=== PATIENT | female | born 2000 | race Caucasian/White ===

== ENCOUNTER 2019-05-20 20:12 | Observation (INO) ==
[2019-05-20] MEDS ORDERED: ONDANSETRON INJ 2 MG/ML 2 ML VIAL IV STA (21:40)
[2019-05-20 21:52] LABS: Basophils # (auto) 0.07 K/uL (0-0.2); Basophils % (auto) 0.8 %; Eosinophils # (auto) 0.01 K/uL (0-0.5); Eosinophils % (auto) 0.1 %; Hematocrit (blood only) 44.3 % (37-47); Hemoglobin 15.5 g/dL (12.0-16.0); Immature Granulocytes # (auto) 0.03 K/uL (0.00-0.02); Immature Granulocytes % (auto) 0.4 %; Lymphocytes # (auto) 1.86 K/uL (1.2-3.4); Lymphocytes % (auto) 22.1 %; Mean Corpuscular Hemoglobin 29.8 pg (25-34); Mean Platelet Volume 10.8 fL (7.4-10.4); Monocytes # (auto) 0.52 K/uL (0.11-0.59); Monocytes % (auto) 6.2 %; Neutrophils # (auto) 5.91 K/uL (1.4-6.5); Neutrophils % (auto) 70.4 %; Platelet Count 306 K/uL (130-400); RDW Coefficient of Variation 12.6 % (11.5-14.5); Red Blood Count 5.21 M/uL (4.2-5.4)
[2019-05-20 22:13] LABS: Albumin Globulin Ratio 1.2 (0.9-2); Albumin Level 4.5 gm/dl (3.4-5.0); BUN Creatinine Ratio 12.7 (10-20); Bilirubin,Total 0.7 mg/dl (0.2-1); Calcium 9.5 mg/dl (8.5-10.1); Creatinine Clr Calc Pharmacy 65.1 ml/min; Est GFR (African American) 101.2; Est GFR (Non-African American) 87.3; Globulin 3.9 gm/dl (2.5-4.0); Potassium 3.3 mmol/L (3.5-5.1); Total Protein 8.4 gm/dl (6.4-8.2)
[2019-05-20] MEDS ORDERED: SODIUM CHLORIDE 0.9% 1000ML 1,000 ML IV ONE (22:13)
[2019-05-20] MEDS ORDERED: DiphenhydrAMINE HCL 50 MG/ML VIAL IV STA ×2 (22:13→23:54)
[2019-05-20] MEDS ORDERED: PROMETHAZINE 6.25 MG/50.25 ML BAG IV STA (22:13)
[2019-05-20] MEDS ORDERED: FAMOTIDINE 20MG/5ML IV PUSH IV STA (22:19)
[2019-05-20] MEDS ORDERED: KETOROLAC TROMETHAMINE 15 MG/ML VIAL IV ONE (22:19)
[2019-05-20] MEDS ORDERED: ACETAMINOPHEN 1,000 MG/100 ML VIAL IV STA (22:19)
[2019-05-20 22:29] LABS: Magnesium 2.2 mg/dl (1.8-2.4)
--- NOTE | 2019-05-20 22:43 | Emergency Department Note ---
Entered by Kelle Garvin acting as a scribe for Howard Cruz MD History of Present Illness General Chief complaint: GI Assessment Stated complaint: VOMITING,NAUSEA,ABD PAIN Time Seen by Provider: 05/20/19 22:12 Source: patient and friends History of Present Illness Onset (ago): hour(s) (several ) Location: abdomen Severity: similar to prior episodes Pain Consistency: + other (persistent ) Maximum Pain Intensity: 6 Quality: + other (nausea and vomiting ) Relieved By: not by medication Associated symptoms: + other (positive upper abdominal pain; negative diarrhea; negative urinary symptoms ) Treatments prior to arrival: other (zofran, benadryl, compazine, pepsid ) The patient is a 18 year old female who presents to the Emergency Room with complaints of persistent nausea and vomiting that began this morning, several hours prior to arrival. The patient reports upper abdominal pain during this time. She states that she has a history of cyclic vomiting syndrome and believes this was triggered by something she ate. The patient's friend states that she ate the same food as the patient and also got sick. The patient states that her last episode of cyclic vomiting was in November of last year, 6 months ago. The patient states that she tried taking Zofran, Benadryl, Pepcid, and Compazine, but states that these did not relieve her symptoms. She denies diarrhea, fever, and urinary symptoms. The patient denies a history of surgeries on her abdomen. Home Medications Home Medications Medication Instructions Recorded Confirmed Type No Known Home Medications 05/20/19 05/20/19 History Allergies Allergy/AdvReac Type Severity Reaction Status Date / Time No Known Allergies Allergy Verified 05/20/19 23:00 Past Med/Surg History Medical History Cyclic vomiting syndrome Social History Preferred Language: Dutch Feels Safe at Home: Yes Smoking Status: Never smoker Review of Systems See HPI for pertinent positives & negatives. and A total of 10 systems reviewed and were otherwise negative Physical Exam Vital Signs Vital Signs - 24 hr 05/20/19 20:37 05/20/19 21:46 05/20/19 21:47 Temperature 36.9 C Temperature Source Oral Pulse Rate 112 H 122 H Pulse Rate [Finger] 78 Pulse Rate from SpO2 Sensor 117 H Respiratory Rate 20 17 21 Respiratory Effort / Characteristics Non-Labored Spontaneous Respiratory Depth Normal Blood Pressure 115/66 127/83 Blood Pressure [Right Arm] 127/83 Blood Pressure Mean 82 93 Blood Pressure Mean [Right Arm] 97 Pulse Oximetry 98 100 99 Oxygen Delivery Method Room Air Room Air Room Air Sepsis Action Taken by Nursing No Action Required 05/20/19 21:58 05/20/19 22:00 05/20/19 22:10 Temperature Temperature Source Pulse Rate 88 83 76 Pulse Rate [Finger] Pulse Rate from SpO2 Sensor 91 H 81 80 Respiratory Rate 14 14 16 Respiratory Effort / Characteristics Respiratory Depth Blood Pressure 127/91 Blood Pressure [Right Arm] Blood Pressure Mean 98 Blood Pressure Mean [Right Arm] Pulse Oximetry 98 100 100 Oxygen Delivery Method Room Air Room Air Room Air Sepsis Action Taken by Nursing 05/20/19 22:20 05/20/19 22:59 05/20/19 23:00 Temperature Temperature Source Pulse Rate 85 76 80 Pulse Rate [Finger] 84 Pulse Rate from SpO2 Sensor 81 77 79 Respiratory Rate 16 19 16 Respiratory Effort / Characteristics Respiratory Depth Normal Blood Pressure 124/84 Blood Pressure [Right Arm] 124/84 Blood Pressure Mean 100 Blood Pressure Mean [Right Arm] 97 Pulse Oximetry 100 100 100 Oxygen Delivery Method Room Air Room Air Room Air Sepsis Action Taken by Nursing 05/20/19 23:01 Temperature Temperature Source Pulse Rate 87 Pulse Rate [Finger] Pulse Rate from SpO2 Sensor 90 Respiratory Rate 24 Respiratory Effort / Characteristics Respiratory Depth Blood Pressure Blood Pressure [Right Arm] Blood Pressure Mean Blood Pressure Mean [Right Arm] Pulse Oximetry 100 Oxygen Delivery Method Room Air Sepsis Action Taken by Nursing GENERAL: Patient is in mild distress from pain and nausea. HEENT: No acute trauma, normocephalic atraumatic, mucous membranes moist, no nasal congestion, no scleral icterus. NECK: No stridor, no adenopathy, no meningismus, trachea is midline. LUNGS: Clear to auscultation bilaterally, no wheeze, no rhonchi, breath sounds equal. HEART: Without murmurs gallops or rubs, regular rate and rhythm. ABDOMEN: Diffusely mildly tender. Soft, bowel sounds positive, no hernias, no peritonitis. EXTREMITIES: No cyanosis or edema, full range of motion of all the joints without pain or difficulty, no signs for acute trauma. NEUROLOGIC: Oriented x 3, no acute motor or sensory deficits, no focal weakness. SKIN: No rash, no jaundice, no diaphoresis. Course Course 2216: Past medical records reviewed. The patient was evaluated in room B11B. A complete history and physical exam was performed. I spoke to the patient about her laboratory findings and imaging results. 2359: Dr. Uribe-[facility] Hospitalist was made aware of the patient. Administered Medications Lactated Ringer's (Lr) 1,000 mls @ 999 mls/hr IV .Q1H1M STA Stop: 05/21/19 00:56 Last Admin: 05/21/19 00:01 Dose: 999 mls/hr Documented by: [id number] Discontinued Medications Diphenhydramine HCl (Benadryl) 12.5 mg IV NOW STA Stop: 05/20/19 22:14 Last Admin: 05/20/19 22:18 Dose: 12.5 mg Documented by: [id number] Diphenhydramine HCl (Benadryl) 12.5 mg IV NOW STA Stop: 05/20/19 23:55 Last Admin: 05/21/19 00:01 Dose: 12.5 mg Documented by: [id number] Famotidine (Pepcid 20mg Iv Push) 20 mg IV ONE STA Stop: 05/20/19 22:20 Last Admin: 05/20/19 22:48 Dose: 20 mg Documented by: [id number] Sodium Chloride (Nss 1000ml) 1,000 mls @ 999 mls/hr IV .Q1H1M ONE Stop: 05/20/19 23:13 Last Infusion: 05/20/19 22:55 Dose: 0 mls/hr Documented by: [id number] Admin: 05/20/19 21:45 Dose: 999 mls/hr Documented by: [id number] Promethazine HCl (Phenergan) 6.25 mg in 50.25 mls @ 201 mls/hr IV NOW STA Stop: 05/20/19 22:27 Last Infusion: 05/20/19 22:55 Dose: 0 mls/hr Documented by: [id number] Admin: 05/20/19 22:20 Dose: 201 mls/hr Documented by: [id number] Acetaminophen (Ofirmev) 1,000 mg in 100 mls @ 400 mls/hr IV NOW STA Stop: 03/02/20 22:33 Last Infusion: 05/20/19 23:13 Dose: 0 mls/hr Documented by: [id number] Admin: 05/20/19 22:48 Dose: 400 mls/hr Documented by: [id number] Prochlorperazine 5 mg/ Syringe 9 mls @ 5 mls/min IV ONE ONE Stop: 05/20/19 22:57 Last Admin: 05/20/19 23:12 Dose: 5 mls/min Documented by: [id number] Promethazine HCl 6.25 mg/ (Sodium Chloride) 50.25 mls @ 201 mls/hr IV NOW STA Stop: 05/20/19 23:10 Last Infusion: 05/20/19 23:39 Dose: 0 mls/hr Documented by: [id number] Admin: 05/20/19 23:11 Dose: 201 mls/hr Documented by: [id number] Ketorolac Tromethamine (Toradol) 10 mg IV NOW ONE Stop: 05/20/19 22:20 Last Admin: 05/20/19 22:47 Dose: 10 mg Documented by: [id number] Ondansetron HCl (Zofran) 4 mg IV NOW STA Stop: 05/20/19 21:41 Last Admin: 05/20/19 21:45 Dose: 4 mg Documented by: [id number] Prochlorperazine (Compazine) Confirm Administered Dose 10 mg .ROUTE .STK-MED ONE Stop: 05/20/19 23:07 Last Admin: 05/20/19 23:12 Dose: Not Given Documented by: [id number] Medical Decision Making Differential Diagnosis Differential diagnoses include dehydration, food borne illness, viral illness, bowel obstruction, , electrolyte imbalance, UTI, and others were considered. Medical Records Attestation: I reviewed the patient's medical records. Home Medications Current Medication List: was personally reviewed by me Laboratory Data Attestation: I reviewed the patient's lab results. Result diagrams: 05/20/19 21:37 05/20/19 21:37 Lab Results 05/20/19 05/20/19 05/20/19 Range/Units 21:37 21:37 21:37 WBC 8.40 (4.8-10.8) K/uL RBC 5.21 (4.2-5.4) M/uL Hgb 15.5 (12.0-16.0) g/dL Hct 44.3 (37-47) % MCV 85.0 (80-100) fL MCH 29.8 (25-34) pg MCHC 35.0 (32-36) g/dL RDW Std Deviation 39.0 (36.4-46.3) fL RDW Coeff of Kady 12.6 (11.5-14.5) % Plt Count 306 (130-400) K/uL MPV 10.8 H (7.4-10.4) fL Immature Gran % (Auto) 0.4 % Neut % (Auto) 70.4 % Lymph % (Auto) 22.1 % [place] % (Auto) 6.2 % Eos % (Auto) 0.1 % Baso % (Auto) 0.8 % Immature Gran # (Auto) 0.03 H (0.00-0.02) K/uL Neut # (Auto) 5.91 (1.4-6.5) K/uL Lymph # (Auto) 1.86 (1.2-3.4) K/uL [place] # (Auto) 0.52 (0.11-0.59) K/uL Eos # (Auto) 0.01 (0-0.5) K/uL Baso # (Auto) 0.07 (0-0.2) K/uL Sodium 138 (136-145) mmol/L Potassium 3.3 L D (3.5-5.1) mmol/L Chloride 106 (98-107) mmol/L Carbon Dioxide 22 (21-32) mmol/L Anion Gap 10.0 (3-11) BUN 12 (7-18) mg/dl Creatinine 0.94 (0.6-1.2) mg/dl Est Cr Clr Drug Dosing 65.1 ml/min Est GFR ( Amer) 101.2 Est GFR (Non-Af Amer) 87.3 BUN/Creatinine Ratio 12.7 (10-20) Glucose 97 (70-99) mg/dl Calcium 9.5 (8.5-10.1) mg/dl Magnesium 2.2 (1.8-2.4) mg/dl Total Bilirubin 0.7 (0.2-1) mg/dl AST 20 (15-37) U/L ALT 24 (12-78) U/L Alkaline Phosphatase 51 (45-117) U/L Total Protein 8.4 H (6.4-8.2) gm/dl Albumin 4.5 (3.4-5.0) gm/dl Globulin 3.9 (2.5-4.0) gm/dl Albumin/Globulin Ratio 1.2 (0.9-2) Lipase 84 (73-393) U/L HCG, Qual Negative (Negative) Urine Color Urine Appearance (Clear) Urine pH (4.5-7.5) Ur Specific Franklin (1.000-1.030) Urine Protein (Negative) Urine Glucose (UA) (Negative) Urine Ketones (Negative) Urine Blood (Negative) Urine Nitrite (Negative) Urine Bilirubin (Negative) Urine Urobilinogen (Negative) Ur Leukocyte Esterase (Negative) Urine WBC (Auto) (0-5) /hpf Urine RBC (Auto) (0-4) /hpf U Hyaline Cast (Auto) (0-5) /lpf U Epithel Cells (Auto) (0-5) /lpf Urine Bacteria (Auto) (Negative) Ur Renal Epithelial Cell Urine Mucus (None Prsent) 05/20/19 Range/Units 22:45 WBC (4.8-10.8) K/uL RBC (4.2-5.4) M/uL Hgb (12.0-16.0) g/dL Hct (37-47) % MCV (80-100) fL MCH (25-34) pg MCHC (32-36) g/dL RDW Std Deviation (36.4-46.3) fL RDW Coeff of Kady (11.5-14.5) % Plt Count (130-400) K/uL MPV (7.4-10.4) fL Immature Gran % (Auto) % Neut % (Auto) % Lymph % (Auto) % [place] % (Auto) % Eos % (Auto) % Baso % (Auto) % Immature Gran # (Auto) (0.00-0.02) K/uL Neut # (Auto) (1.4-6.5) K/uL Lymph # (Auto) (1.2-3.4) K/uL [place] # (Auto) (0.11-0.59) K/uL Eos # (Auto) (0-0.5) K/uL Baso # (Auto) (0-0.2) K/uL Sodium (136-145) mmol/L Potassium (3.5-5.1) mmol/L Chloride (98-107) mmol/L Carbon Dioxide (21-32) mmol/L Anion Gap (3-11) BUN (7-18) mg/dl Creatinine (0.6-1.2) mg/dl Est Cr Clr Drug Dosing ml/min Est GFR ( Amer) Est GFR (Non-Af Amer) BUN/Creatinine Ratio (10-20) Glucose (70-99) mg/dl Calcium (8.5-10.1) mg/dl Magnesium (1.8-2.4) mg/dl Total Bilirubin (0.2-1) mg/dl AST (15-37) U/L ALT (12-78) U/L Alkaline Phosphatase (45-117) U/L Total Protein (6.4-8.2) gm/dl Albumin (3.4-5.0) gm/dl Globulin (2.5-4.0) gm/dl Albumin/Globulin Ratio (0.9-2) Lipase (73-393) U/L HCG, Qual (Negative) Urine Color Dark Yellow Urine Appearance Clear (Clear) Urine pH 8.0 H (4.5-7.5) Ur Specific Franklin 1.029 (1.000-1.030) Urine Protein Negative (Negative) Urine Glucose (UA) Negative (Negative) Urine Ketones 4+ H (Negative) Urine Blood Negative (Negative) Urine Nitrite Negative (Negative) Urine Bilirubin Negative (Negative) Urine Urobilinogen Negative (Negative) Ur Leukocyte Esterase 1+ H (Negative) Urine WBC (Auto) 10-30 H (0-5) /hpf Urine RBC (Auto) 5-10 H (0-4) /hpf U Hyaline Cast (Auto) 0 (0-5) /lpf U Epithel Cells (Auto) >30 H (0-5) /lpf Urine Bacteria (Auto) 1+ H (Negative) Ur Renal Epithelial Cell Not Reportable Urine Mucus Present A (None Prsent) Imaging Data Radiologist's Impression: Radiology results as stated below per my review and the radiologist's interpretation: PA CHEST RADIOGRAPH AND UPRIGHT AND SUPINE AP RADIOGRAPHS OF THE ABDOMEN CLINICAL HISTORY: Nausea and vomiting. COMPARISON STUDY: No previous studies for comparison. FINDINGS: Lung volumes are normal. There is no pneumothorax or pleural effusion. Cardiac size is normal. Mediastinal contours are normal. There is no consolidation. There is no evidence for pulmonary edema. No free air is noted. The bowel gas pattern is normal. No urinary calculi are identified. Visualized skeletal structures are unremarkable. IMPRESSION: 1. No free air or evidence of bowel obstruction. 2. No acute cardiopulmonary findings. ACT 112: Negative or not required by law. Electronically signed by: Hoang Cali M.D. 05/20/2019 10:45 PM Blood Pressure Blood Pressure Findings: Elevated blood pressure Blood Pressure Disposition: Referred to patients primary care provider [facility] Narrative There is no leukocytosis or concerning anemia. No significant electrolyte abnormality or kidney failure. No concerning liver enzyme elevation. testing was negative. No evidence for pancreatitis by her testing. Urinalysis did show dehydration with 4+ ketones, no evidence for infection on the UA. Abdominal series did not show pneumonia, free air or bowel obstruction. On exam, the patient was not toxic or febrile. She did not have peritonitis. The patient received multiple medications for her nausea and vomiting. She was given IV saline, 1 L. She eventually was given a liter of lactated Ringer's. She was given IV Compazine, IV Benadryl, IV Zofran. She received IV Pepcid, IV Toradol, IV Tylenol. She was given an additional dose of IV Benadryl. She received a dose of IV Phenergan. A second dose of IV Phenergan was administered. The patient is still nauseated and still dry heaving. She is going to require hospitalization. She states that she had some bad food that made her friend sick as well. She has a history of cyclic vomiting syndrome and this food seems to have set off her cyclic vomiting. She this is her second visit today. The patient is aware of all her findings. I did speak with case management. The on-call hospitalist has been consulted. Impression & Plan Dehydration, Vomiting, Upper abdominal pain, Cyclic vomiting syndrome Discharge Plan Visit Data Chief Complaint: GI Assessment Stated Complaint: VOMITING,NAUSEA,ABD PAIN ED Provider: Howard Cruz Discharge Problem: Dehydration, Vomiting, Upper abdominal pain, Cyclic vomiting syndrome Patient Disposition: Being Evaluated by Hospitalist Forms Stand Alone Forms: My [employer] Prescriptions Prescriptions: No Action No Known Home Medications RF: 0 Referrals Referrals: [facility] [Primary Care Provider] - Discharge Problem: Vomiting Qualifiers: Vomiting type: unspecified Vomiting Intractability: intractable Nausea presence: with nausea Qualified Code(s): R11.2 - Nausea with vomiting, unspecified The scribe's documentation has been prepared under my direction and personally reviewed by me in its entirety. I confirm that the note above accurately reflects all work, treatment, procedures, and medical decision making performed by me.
--- NOTE | 2019-05-20 22:47 | XRay Report ---
PA CHEST RADIOGRAPH AND UPRIGHT AND SUPINE AP RADIOGRAPHS OF THE ABDOMEN CLINICAL HISTORY: Nausea and vomiting. COMPARISON STUDY: No previous studies for comparison. FINDINGS: Lung volumes are normal. There is no pneumothorax or pleural effusion. Cardiac size is nor mal. Mediastinal contours are normal. There is no consolidation. There is no evidence for pulmonary e karri. No free air is noted. The bowel gas pattern is normal. No urinary calculi are identified. Visua lized skeletal structures are unremarkable. IMPRESSION: 1. No free air or evidence of bowel obstruction. 2. No acute cardiopulmonary findings. ACT 112: Negative or not required by law. Electronically signed by: Hoang Cali M.D. 05/20/2019 10:45 PM
[2019-05-20] MEDS ORDERED: PROMETHAZINE HCL 6.25 MG in SODIUM CHLORIDE 0.9% 50 ML IV STA (22:56)
[2019-05-20] MEDS ORDERED: PROCHLORPERAZINE 5 MG in SYRINGE 8 ML IV ONE (22:56)
[2019-05-20] MEDS ORDERED: PROCHLORPERAZINE 5 MG/ML 2 ML VIAL ONE (23:06)
[2019-05-20 23:08] LABS: Pregnancy Test, Serum Negative (Negative)
[2019-05-20 23:21] LABS: Appearance Urine Clear (Clear); Bacteria Urine Automated 1+ (Negative); Bilirubin Urine Negative (Negative); Blood Urine Negative (Negative); Color Urine Dark Yellow; Epithelial Cell Urine Auto >30 /lpf (0-5); Glucose Urine UA Negative (Negative); Leukocyte Esterase Urine 1+ (Negative); Nitrite Urine Negative (Negative); Specific Gravity Urine 1.029 (1.000-1.030); Urobilinogen Urine Negative (Negative)
[2019-05-20 23:37] LABS: Ketones Urine 4+ (Negative); Protein Urine Negative (Negative); Sulfosalicylic Acid Urine Negative (Negative)
[2019-05-20 23:56] LABS: Cast Urine Automated 0 /lpf (0-5); Mucus Urine Present (None Prsent)
[2019-05-20] MEDS ORDERED: LACTATED RINGER'S 1,000 ML IV STA (23:56)
[2019-05-21] MEDS ORDERED: SUMAtriptan succinate 6 MG/0.5 ML VIAL SQ STA (03:07)
--- NOTE | 2019-05-21 03:09 | History & Physical Report ---
Date of Service May 21, 2019 Assessment & Plan (1) Cyclic vomiting syndrome: Patient is a 21-year-old female with a past medical history of cyclical vomiting syndrome who presents for evaluation nausea and vomiting in the setting of cyclic vomiting syndrome flare secondary to suspected food poisoning. #Cyclic vomiting syndrome Patient with a history of cyclic vomiting syndrome first diagnosed while she was in high school, with prior history of 1 week hospitalization to manage symptoms, Presents with what she believes to be a flare of her cyclic vomiting syndrome secondary to presumed foodborne illness experienced on Monday. See subjective she notes her girlfriends were also sick after consuming food. Since then has been unable to have any meaningful p.o. intake. Reports urine is dark consistent with dehydration, still having bouts of emesis despite aggressive therapy. Admit to MedSurg PRN Zofran As needed Phenergan PRN Compazine PRN diphenhydramine PRN Tylenol/ketorolac for fever/pain Per review of up-to-date there are 2 recommendations for abortive medications -Trial of sumatriptan 6 mg subcu -If this is not effective by morning trial of aprepitant 125 mg orally on day 1 and 80 mg on day 2 and 3 -On discharge consider use of amitriptyline 75 to 100 mg/day for prophylaxis -If this is not tolerated consider use of nortriptyline versus doxepin -If not can consider anticonvulsants Topamax 100 mg daily versus Keppra 1 g daily versus aprepitant 152 mg twice per week -Would also add coenzyme Q 10 200 mg twice daily, riboflavin 200 mg twice daily, l-carnitine 1.5 g twice daily as adjuncts -Full liquid diet advance as tolerated -If unable to maintain adequate p.o. intake to consider TPN #Electrolyte abnormalities Hypokalemic on admission -Daily BMP -Repleted potassium #Nausea and vomiting Secondary to the above, supportive care #Dehydration Patient status post 2 bags of fluid resuscitation, will continue fluids at 1.5 times maintenance IVF LR at 125 #Upper abdominal pain Patient reporting pain in her abdomen in the epigastric and left upper quadrant region. Lipase is negative, however there was some guarding on physical exam. Her laboratory results are not super impressive for underlying abdominal pathology. Upon review of up-to-date they recommend CT to rule out acute hydronephrosis or SBO. -Follow-up abdominal CT FENa: Full liquid advance as tolerated Code Status: Full code DVT PPX: Not indicated PT/OT: Not indicated [facility] PGY 2, FCM This chart was completed utilizing [employer] voice recognition software. Grammatical errors, random word insertions, pronoun errors, and in complete sentences are an occasional consequence of the system. Any questions or concerns about the content, text, or information contained within the body of this dictation should be addressed directly to the physician for clarification. (2) Nausea and vomiting: (3) Dehydration: (4) Vomiting: (5) Upper abdominal pain: History of Present Illness Patient is a 21-year-old female with a past medical history of cyclical vomiting syndrome who presents for evaluation nausea and vomiting in the setting of cyclic vomiting syndrome flare secondary to suspected food poisoning. She reports that she was first diagnosed with cyclic vomiting syndrome while in high school, is a senior in high school she was hospitalized for a week in efforts to get over a flare of her CVS. She reports being sexually active however She reportsthere is no chance of , this confirmed by labs. Patient denies using drugs specifically denies marijuana specifically denies warm showers improving her symptoms. 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 Patient was in her usual state of health until this Monday when she and her girlfriends went to [employer] and consumed a Zoey ham egg and cheese. She reports that she and her girlfriend all became sick from this throwing up approximately 4 times throughout the day on Monday. Her friends symptoms resolved the day however hers persisted causing her to present to the emergency department on Monday with nausea and vomiting she was given Zofran Benadryl and caspacin and discharged. Patient symptoms have continued resulting in her presentation today. She reports she has not been able to keep anything down besides a plain bagel which she consumed on Monday, notes her urine to be very yellow as she feels significantly dehydrated, reports her last bowel movement was this past Monday. Today she prior to coming to the emergency department she took Zofran, Benadryl, and caspacin with no improvement in her symptoms. She takes cyproheptadine on a daily basis as a prophylaxis against her CVS. Upon presentation the emergency department routine labs were obtained notable for negative urine test, white count of 8.4, hemoglobin 15.5, platelet 306, sodium 138, potassium 3.3, creatinine 0.94, glucose 97, lipase of 84, urine ketones of 4+, urine leukocyte 1+, 10-30 white, greater than 30 epithelial cells, 1+ bacteria. Throughout her time in the emergency department the patient experienced intractable nausea and vomiting despite receiving IV acetaminophen, IV 25 mg of diphenhydramine, IV famotidine, IV Toradol, 2 liters of fluid, 4 mg Zofran, 15 mg prochlorperazine, and 12.5 mg promethazine. XR of the abdomen and pelvis was obtained demonstrating no evidence of free air or bowel obstruction, no acute cardiopulmonary findings. Despite her aggressive medication regimen, the patient did not improve so the hospital service was consulted for admission. On evaluation the patient she confirmed the history described above, and experienced 2 bouts of emesis during the interview. She described her symptoms as the following: During episodes of CVS she will experience "an icky feeling in her stomach" which causes her to feel nauseous, the nausea becomes progressively worse to the point where she has bouts of emesis. Additionally she noted epigastric and left upper quadrant pain, she states that she frequently gets similar symptoms when she has CVS episodes. Patient specifically denied fevers, chills, urinary symptoms, motor symptoms, sensory symptoms, pain in her bones muscles or joints. Patient will be admitted for further evaluation management of her CVS symptoms. Primary Care Provider: [facility] Allergies Allergy/AdvReac Type Severity Reaction Status Date / Time No Known Allergies Allergy Verified 05/20/19 23:00 Home Medications Home Medications Medication Instructions Recorded Confirmed Type aprepitant [Emend] 80 mg PO QAM #1 cap 05/22/19 Rx cyproheptadine 4 mg PO HS #30 tab 05/22/19 Rx Past Med/Surg History Medical History Cyclic vomiting syndrome Social History Preferred Language: Niuean Communication Ability: Effective Fluid Dynamicist Required: No Beliefs That Will Affect Care: None Current Living Situation: Other Current Living Situation Comment: roomates/parents Feels Safe at Home: Yes Smoking Status: Never smoker Hx Alcohol Use: No Hx Substance Use: No Review of Systems Review of Systems: All systems reviewed & are unremarkable except as noted in HPI & below Physical Exam Physical Exam: General: Young adult female lying in bed vomiting HEENT: Normocephalic atraumatic Neck: Normal to visual inspection, trachea midline, negative JVD Cardiac: Regular rate and rhythm, I did not appreciate any significant murmurs rubs or gallops, normal S1, normal S2, negative calf tenderness, negative pedal edema Respiratory: Clear to auscultation bilaterally with symmetrical chest expansion, no increased work of breathing GI: Soft, tender to palpation in the epigastric and left upper quadrant, bowel sounds present, no rebound, positive guarding MSK: Moves all extremities Skin: No acute findings Neuro: Alert and oriented x4 Psych: Calm and cooperative Results & Data Vital Signs (Past 12 Hours) Vital Signs Temp Pulse Pulse Resp BP BP Pulse Ox 05/21/19 01:01 72 15 100 05/21/19 01:00 80 16 117/64 100 05/21/19 00:30 89 15 94/65 L 99 05/21/19 00:01 68 20 98 05/21/19 00:00 67 16 115/80 100 05/20/19 23:30 76 15 117/74 99 05/20/19 23:01 87 24 100 05/20/19 23:00 80 84 16 124/84 124/84 100 05/20/19 22:59 76 19 100 05/20/19 22:20 85 16 100 05/20/19 22:10 76 16 100 05/20/19 22:00 83 14 127/91 100 05/20/19 21:58 88 14 98 05/20/19 21:47 122 H 21 127/83 99 05/20/19 21:46 78 17 127/83 100 05/20/19 20:37 36.9 C 112 H 20 115/66 98 Laboratory Results 05/20/19 05/20/19 05/20/19 Range/Units 22:45 21:37 21:37 WBC (4.8-10.8) K/uL RBC (4.2-5.4) M/uL Hgb (12.0-16.0) g/dL Hct (37-47) % MCV (80-100) fL MCH (25-34) pg MCHC (32-36) g/dL RDW Std Deviation (36.4-46.3) fL RDW Coeff of Kady (11.5-14.5) % Plt Count (130-400) K/uL MPV (7.4-10.4) fL Immature Gran % (Auto) % Neut % (Auto) % Lymph % (Auto) % Day % (Auto) % Eos % (Auto) % Baso % (Auto) % Immature Gran # (Auto) (0.00-0.02) K/uL Neut # (Auto) (1.4-6.5) K/uL Lymph # (Auto) (1.2-3.4) K/uL Day # (Auto) (0.11-0.59) K/uL Eos # (Auto) (0-0.5) K/uL Baso # (Auto) (0-0.2) K/uL Sodium 138 (136-145) mmol/L Potassium 3.3 L D (3.5-5.1) mmol/L Chloride 106 (98-107) mmol/L Carbon Dioxide 22 (21-32) mmol/L Anion Gap 10.0 (3-11) BUN 12 (7-18) mg/dl Creatinine 0.94 (0.6-1.2) mg/dl Est Cr Clr Drug Dosing 65.1 ml/min Est GFR ( Amer) 101.2 Est GFR (Non-Af Amer) 87.3 BUN/Creatinine Ratio 12.7 (10-20) Glucose 97 (70-99) mg/dl Calcium 9.5 (8.5-10.1) mg/dl Magnesium 2.2 (1.8-2.4) mg/dl Total Bilirubin 0.7 (0.2-1) mg/dl AST 20 (15-37) U/L ALT 24 (12-78) U/L Alkaline Phosphatase 51 (45-117) U/L Total Protein 8.4 H (6.4-8.2) gm/dl Albumin 4.5 (3.4-5.0) gm/dl Globulin 3.9 (2.5-4.0) gm/dl Albumin/Globulin Ratio 1.2 (0.9-2) Lipase 84 (73-393) U/L HCG, Qual Negative (Negative) Urine Color Dark Yellow Urine Appearance Clear (Clear) Urine pH 8.0 H (4.5-7.5) Ur Specific [place] 1.029 (1.000-1.030) Urine Protein Negative (Negative) Urine Glucose (UA) Negative (Negative) Urine Ketones 4+ H (Negative) Urine Blood Negative (Negative) Urine Nitrite Negative (Negative) Urine Bilirubin Negative (Negative) Urine Urobilinogen Negative (Negative) Ur Leukocyte Esterase 1+ H (Negative) Urine WBC (Auto) 10-30 H (0-5) /hpf Urine RBC (Auto) 5-10 H (0-4) /hpf U Hyaline Cast (Auto) 0 (0-5) /lpf U Epithel Cells (Auto) >30 H (0-5) /lpf Urine Bacteria (Auto) 1+ H (Negative) Ur Renal Epithelial Cell Not Reportable Urine Mucus Present A (None Prsent) 05/20/19 Range/Units 21:37 WBC 8.40 (4.8-10.8) K/uL RBC 5.21 (4.2-5.4) M/uL Hgb 15.5 (12.0-16.0) g/dL Hct 44.3 (37-47) % MCV 85.0 (80-100) fL MCH 29.8 (25-34) pg MCHC 35.0 (32-36) g/dL RDW Std Deviation 39.0 (36.4-46.3) fL RDW Coeff of Kady 12.6 (11.5-14.5) % Plt Count 306 (130-400) K/uL MPV 10.8 H (7.4-10.4) fL Immature Gran % (Auto) 0.4 % Neut % (Auto) 70.4 % Lymph % (Auto) 22.1 % Day % (Auto) 6.2 % Eos % (Auto) 0.1 % Baso % (Auto) 0.8 % Immature Gran # (Auto) 0.03 H (0.00-0.02) K/uL Neut # (Auto) 5.91 (1.4-6.5) K/uL Lymph # (Auto) 1.86 (1.2-3.4) K/uL Day # (Auto) 0.52 (0.11-0.59) K/uL Eos # (Auto) 0.01 (0-0.5) K/uL Baso # (Auto) 0.07 (0-0.2) K/uL Sodium (136-145) mmol/L Potassium (3.5-5.1) mmol/L Chloride (98-107) mmol/L Carbon Dioxide (21-32) mmol/L Anion Gap (3-11) BUN (7-18) mg/dl Creatinine (0.6-1.2) mg/dl Est Cr Clr Drug Dosing ml/min Est GFR ( Amer) Est GFR (Non-Af Amer) BUN/Creatinine Ratio (10-20) Glucose (70-99) mg/dl Calcium (8.5-10.1) mg/dl Magnesium (1.8-2.4) mg/dl Total Bilirubin (0.2-1) mg/dl AST (15-37) U/L ALT (12-78) U/L Alkaline Phosphatase (45-117) U/L Total Protein (6.4-8.2) gm/dl Albumin (3.4-5.0) gm/dl Globulin (2.5-4.0) gm/dl Albumin/Globulin Ratio (0.9-2) Lipase (73-393) U/L HCG, Qual (Negative) Urine Color Urine Appearance (Clear) Urine pH (4.5-7.5) Ur Specific [place] (1.000-1.030) Urine Protein (Negative) Urine Glucose (UA) (Negative) Urine Ketones (Negative) Urine Blood (Negative) Urine Nitrite (Negative) Urine Bilirubin (Negative) Urine Urobilinogen (Negative) Ur Leukocyte Esterase (Negative) Urine WBC (Auto) (0-5) /hpf Urine RBC (Auto) (0-4) /hpf U Hyaline Cast (Auto) (0-5) /lpf U Epithel Cells (Auto) (0-5) /lpf Urine Bacteria (Auto) (Negative) Ur Renal Epithelial Cell Urine Mucus (None Prsent) Code Status & VTE Plan Code Status Full code VTE Prophylaxis Plan VTE Prophylaxis will be ordered: No Supervising Physician Co-Signing Physician Notes Attending addendum: I have physically seen this patient, have supervised the medical residents activities, and agree with the H&P unless as otherwise noted. Assessment and Plan: Cyclic vomiting syndrome-previous diagnosis- Admission to [facility]. Medications as noted, however no improvement while in the ED. Check urine drug screen. Replete potassium orally and IV, then follow serial laboratories. Remainder of orders and notations as noted. Resident Activity Tracking Resident Involvement: Resident Care Provided Care Provided: Adult Hospital Medicine (1) Nausea and vomiting Vomiting Intractability: non-intractable Vomiting type: unspecified Qualified Code(s): R11.2 - Nausea with vomiting, unspecified (2) Vomiting Nausea presence: with nausea Vomiting Intractability: intractable Vomiting type: unspecified Qualified Code(s): R11.2 - Nausea with vomiting, unspecified
[2019-05-21] MEDS ORDERED: IOVERSOL 100ml IV PRN (04:11)
[2019-05-21] MEDS ORDERED: KETOROLAC TROMETHAMINE 15 MG/ML VIAL IV PRN (04:18)
[2019-05-21] MEDS ORDERED: PROMETHAZINE HCL 6.25 MG in SODIUM CHLORIDE 0.9% 50 ML IV PRN (04:18)
[2019-05-21] MEDS ORDERED: PROCHLORPERAZINE 5 MG in SYRINGE 4 ML IV PRN (04:18)
[2019-05-21] MEDS ORDERED: ondansetron HCL 6 MG in DEXTROSE 5% 50 ML IV PRN (04:18)
[2019-05-21] MEDS ORDERED: ALUMINUM/MAGNESIUM SUSP 30 ML UDC PO PRN (04:18)
[2019-05-21] MEDS ORDERED: ACETAMINOPHEN 1,000 MG/100 ML VIAL IV PRN (04:18)
[2019-05-21] MEDS ORDERED: DiphenhydrAMINE HCL 50 MG/ML VIAL IV PRN (04:18)
[2019-05-21] MEDS: LACTATED RINGER'S 1,000 ML IV SCH ×3 (04:26→19:36)
[2019-05-21] MEDS: POTASSIUM CHLORIDE / WTR 10 MEQ/100 ML PLCT IV SCH ×3 (04:33→06:48)
[2019-05-21] MEDS ORDERED: ACETAMINOPHEN 70 ML IV PRN (05:00)
[2019-05-21 07:21] LABS: Basophils # (auto) 0.04 K/uL (0-0.2); Basophils % (auto) 0.5 %; Eosinophils # (auto) 0.01 K/uL (0-0.5); Eosinophils % (auto) 0.1 %; Hematocrit (blood only) 37.5 % (37-47); Hemoglobin 12.8 g/dL (12.0-16.0); Immature Granulocytes # (auto) 0.02 K/uL (0.00-0.02); Immature Granulocytes % (auto) 0.2 %; Lymphocytes # (auto) 2.16 K/uL (1.2-3.4); Lymphocytes % (auto) 24.9 %; Mean Corpuscular Hemoglobin 29.2 pg (25-34); Mean Corpuscular Hgb Conc 34.1 g/dL (32-36); Mean Corpuscular Volume 85.4 fL (80-100); Mean Platelet Volume 10.4 fL (7.4-10.4); Monocytes # (auto) 0.83 K/uL (0.11-0.59); Monocytes % (auto) 9.6 %; Neutrophils # (auto) 5.61 K/uL (1.4-6.5); Neutrophils % (auto) 64.7 %; Platelet Count 229 K/uL (130-400); RDW Coefficient of Variation 12.4 % (11.5-14.5); RDW Standard Deviation 38.4 fL (36.4-46.3); Red Blood Count 4.39 M/uL (4.2-5.4); White Blood Count 8.67 K/uL (4.8-10.8)
--- NOTE | 2019-05-21 07:42 | CT Scan Report ---
CT SCAN OF THE ABDOMEN AND PELVIS WITH IV CONTRAST CLINICAL HISTORY: Left upper quadrant and epigastric abdominal pain. COMPARISON STUDY: Abdominal radiographs dated 05/20/2019. TECHNIQUE: Following the IV administration of 94 cc of Optiray 320, CT scan of the abdomen and pelvi s is performed from the lung bases to the proximal femora. Images are reviewed in the axial, sagittal , and coronal planes. IV contrast was administered without complication. A dose lowering technique wa s utilized adhering to the principles of ALARA. CT DOSE: 251.42 mGy.cm FINDINGS: Lung bases: The heart is normal in size and without pericardial effusion. The lung bases are clear. Liver: The contrast-enhanced liver is normal in size, contour, and attenuation. There is no intrahepa tic biliary ductal dilatation. The hepatic veins and portal veins are patent. Gallbladder: Unremarkable. Spleen: Normal in size and attenuation. Pancreas: Unremarkable. Adrenal glands: Unremarkable. Kidneys: The contrast enhanced kidneys are normal in size and without hydronephrosis. The kidneys enh ance symmetrically. Abdominal vasculature: The abdominal aorta is normal in course and caliber. Bowel: The small bowel and colon are normal in course and caliber. The appendix is well-visualized a nd normal. Peritoneum: There is no intraperitoneal free air or abdominal ascites. There is a small fat-containin g umbilical hernia. Lymphadenopathy: None. Pelvic viscera: The bladder, uterus, and adnexa are normal as imaged. There is trace free fluid in th e cul-de-sac. Skeletal structures: No lytic or blastic lesions are seen. IMPRESSION: 1. There are no acute infectious or inflammatory findings in the abdomen or pelvis. 2. Trace nonspecific free fluid in the cul-de-sac is likely within physiologic limits. ACT 112: Negative or not required by law. Electronically signed by: Howard Davey M.D. 05/21/2019 7:41 AM
[2019-05-21 07:48] LABS: Blood Urea Nitrogen 6 mg/dl (7-18); Calcium 8.1 mg/dl (8.5-10.1); Carbon Dioxide 22 mmol/L (21-32); Chloride 109 mmol/L (98-107); Est GFR (African American) > 150.0; Est GFR (Non-African American) 131.2; Glucose 99 mg/dl (70-99); Potassium 4.2 mmol/L (3.5-5.1); Sodium 137 mmol/L (136-145)
[2019-05-21] MEDS: POLYETHYLENE (MIRALAX) 17 GM PACK PO SCH (10:56)
[2019-05-21] MEDS: FAMOTIDINE 20 MG in SYRINGE 3 ML IV SCH ×2 (11:41→21:04)
[2019-05-21] MEDS ORDERED: SUMAtriptan succinate 6 MG/0.5 ML VIAL SQ ONE (13:08)
--- NOTE | 2019-05-21 13:17 | Hospitalist Progress Note ---
Date of Service May 21, 2019 Assessment & Plan (1) Cyclic vomiting syndrome: Patient with a history of cyclic vomiting syndrome first diagnosed while she was in high school, with prior history of 1 week hospitalization to manage symptoms, Presents with what she believes to be a flare of her cyclic vomiting syndrome secondary to presumed foodborne illness experienced on Monday. continue prn antiemetics and pain control - responded well to sumatriptan 6 mg sq but continues to be nauseas and painful so will repeat dose, will consider trial of aprepitant if she does not continue to improve -On discharge consider use of amitriptyline 75 to 100 mg/day for prophylaxis - consider anticonvulsants Topamax 100 mg daily versus Keppra 1 g daily versus aprepitant 152 mg twice per week -could add coenzyme Q 10 200 mg twice daily, riboflavin 200 mg twice daily, l-carnitine 1.5 g twice daily as adjuncts - continue home ciproheptadine at night -Full liquid diet advance as tolerated (2) Dehydration: Continue IVF (3) Upper abdominal pain: Lipase is negative CT a/p negative for acute Admission and Anticipated Discharge Date Admission Date: May 21, 2019 Subjective Ms. Adams has not been vomiting today but is still quite nauseas with abdominal pain. Her mother says she appears much more calm and comfortable than when she came in. ROS Constitutional: no chills, aches, sweats or fever Respiratory: no sob,cough, sputum, or wheezing Cardiac: no chest pain, palpitations, edema, orthopnea or lightheadedness GI: no abdominal pain, nausea, vomiting, diarrhea or constipation : no dysuria or hesitancy Extremities: no joint pain or weakness Skin: no rash All other systems reviewed and negative Physical Exam Physical Exam: General: no distress Eyes: normal inspection, PERLL Respiratory: chest non tender, clear to auscultation, normal breath sounds, no respiratory distress, no accessory muscle use Cardiac: regular rate and rhythm, no rub or gallop, no murmur, no edema, no jvd GI/: active bowel sounds, tender abdomen, soft, non distended Extremities: normal range of motion, normal strength, non tender Neuro/Psych: alert and oriented x 3, normal mood and affect Skin: normal color, dry Results & Data ([facility]) Vital Signs (Past 12 Hours) Vital Signs Temp Pulse Pulse Resp BP BP Pulse Ox 05/21/19 11:42 115/67 05/21/19 08:11 37.0 C 84 18 143/90 H 100 05/21/19 04:18 37.2 C 69 16 112/71 96 05/21/19 03:52 77 18 119/83 100 05/21/19 03:30 77 15 119/83 100 05/21/19 03:01 71 21 95 05/21/19 03:00 76 18 123/78 96 05/21/19 02:30 97 H 20 110/85 100 05/21/19 02:01 95 H 18 97 05/21/19 02:00 87 21 110/69 98 05/21/19 01:30 76 18 97/49 L 96 PG Care Time/CCT Total # of Minutes Spent Total Time Spent with Patient: Total time spent is greater than 50% in coordination of care (as documented) at patient's floor/unit and/or counseling patient: Coding Level of Care Code 13551 Subseq Hosp Care Lvl 2 Diagnoses Cyclic vomiting syndrome R11.15 Dehydration E86.0 Upper abdominal pain R10.10
[2019-05-21 15:45] VITALS: O2SAT 98
[2019-05-21] MEDS ORDERED: APREPITANT 125 MG CAP PO STA (17:13)
[2019-05-21] MEDS ORDERED: CYPROHEPTADINE HCL 4 MG TAB PO SCH (21:00)
[2019-05-22] MEDS: LACTATED RINGER'S 1,000 ML IV SCH ×2 (03:27→13:00)
[2019-05-22 07:45] VITALS: BP 102/62; PULSE 64; TEMP 97.9
[2019-05-22 08:21] LABS: BUN Creatinine Ratio 14.1 (10-20); Calcium 8.3 mg/dl (8.5-10.1); Creatinine Clr Calc Pharmacy 97.1 ml/min; Est GFR (African American) 149.7; Est GFR (Non-African American) 129.1; Potassium 3.8 mmol/L (3.5-5.1)
[2019-05-22] MEDS: POLYETHYLENE (MIRALAX) 17 GM PACK PO SCH (08:49)
[2019-05-22] MEDS: FAMOTIDINE 20 MG in SYRINGE 3 ML IV SCH (08:55)
[2019-05-22] MEDS ORDERED: APREPITANT 80 MG CAP PO SCH ×2 (09:00→12:00)
--- NOTE | 2019-05-22 09:53 | Discharge Summary ---
Date of Service May 22, 2019 Principal Diagnosis Cyclic vomiting syndrome Discharge Exam Constitutional WD/WN, vitals as above Respiratory normal respiratory effort, lungs clear to auscultation Cardiovascular RRR, no murmur, no edema Gastrointestinal (Abdomen) Inspection/Auscultation: abdomen normal to inspection and normal bowel sounds; abdomen not distended Percussion/Palpation: abdomen soft; abdomen nontender and no guarding Musculoskeletal no cyanosis or clubbing, extremities motor strength 5/5 Skin no rashes, warm and dry Neurologic moves all extremities and awake Psychiatric A+Ox3, euthymic affect Discharge Data Allergies Allergy/AdvReac Type Severity Reaction Status Date / Time No Known Allergies Allergy Verified 05/20/19 23:00 Consultations 05/20/19 23:55 ED Decision to Admit Stat Ordered Studies 05/21/19 03:03 CT abd pelvis IV con only Urgent Hospital Course (1) Cyclic vomiting syndrome: Patient with a history of cyclic vomiting syndrome first diagnosed while she was in high school, with prior history of 1 week hospitalization to manage symptoms, Presents with what she believes to be a flare of her cyclic vomiting syndrome secondary to presumed foodborne illness experienced on Monday. has not needed prn antiemetics or pain control since yesterday, no further abdominal pain or n/v - responded to sumatriptan 6 mg sq but continues to be nauseas and painful so will repeat dose, will consider trial of aprepitant if she does not continue to improve -Will have patient discuss use of amitriptyline 75 to 100 mg/day for prophylaxis with her primary care or GI doctor but will hold off on changing her preventive regimen for now -suggest adding coenzyme Q 10 200 mg twice daily, riboflavin 200 mg twice daily, l-carnitine 1.5 g twice daily as adjuncts - continue home ciproheptadine at night -Full liquid diet advance as tolerated (2) Dehydration: Provided IVF (3) Upper abdominal pain: Lipase is negative CT a/p negative for acute Resolved Total Time Total Time Spent Total Time Spent (In Minutes): greater than 30 minutes Discharge Plan Discharge Items Patient Disposition: Home - Self-Care Reason For Visit: CYCLIC VOMITING SYNDROME Discharge Diagnosis: Cyclic vomiting syndrome Activity: Resume your previous activity Non-emergency contact: Primary Care Provider Call non-emergency contact if: you have any medication questions and your symptoms worsen Follow-up/Referrals: [facility] [Primary Care Provider] - 05/24/19 9:40 am (If you need to change appointment please call [phone] to reschedule.) Diet: Regular Diet Comment: advance your diet slowly as you can tolerate, drink plenty of fluids Addtl Attending Provider Instructions: While you were here you received 2 doses of sumatriptan which was somewhat effective but did not completely abort the vomiting cycle. You were then given aprepitant (Emend) which is given for 3 days to help stop the cycle. You will take one more dose of this medication tomorrow morning. You can continue your home dosing of cyproheptadine. You can also add the following supplements to your regimen as they may help prevent relapses: coenzyme Q 10 200 mg twice daily, riboflavin 200 mg twice daily, l-carnitine 1.5 g twice daily. Please follow up with your primary care provider within about a week. You should discuss with them if you should change or add to your preventive medicine regimen with a tricyclic antidepressant like amitriptyline. Pending Studies at Discharge: No Stand-Alone Forms: [facility], Work/School Release (Inpt), Smoking Cessation Medications and DC Order Prescriptions: New cyproheptadine 4 mg Tablet 4 mg PO HS Qty: 30 RF: 0 aprepitant [Emend] 80 mg Capsule 80 mg PO QAM Qty: 1 RF: 0 Discharge Orders: Discharge Order (Routine); Ordered 05/22/19 Ordered By: Anjali Barnhart/Other Patient Handouts: Aprepitant capsules Admission Data Admit Date/Time: 05/21/19 03:13 Attending Provider: Jaguar Rodríguez Admit Provider: Chato Noe I. Primary Care Provider: [facility] Other Providers: Jaguar Rodríguez Other Interventions: Discharge Summary Assessment (RN) Last Done: 05/22/19 11:42 DC Date/Time DO NOT enter until pt leaves facility: 05/22/19 14:21 Supervising Physician Co-Signing Physician Notes I supervised Anjali Ferrell NP on this patient's care. I examined the patient today independently of her. I discussed the plan of care with her with the plan being as written in her note except for any following changes/exceptions: None. Slowly feeling better, but she reports it can take weeks. She will see her GI doctor on Monday. Coding Level of Care Code D/C Day Management >30 mins Diagnoses Cyclic vomiting syndrome R11.15 Dehydration E86.0 Upper abdominal pain R10.10
[2019-05-23] MEDS ORDERED: APREPITANT 80 MG CAP PO SCH (09:00)
--- NOTE | 2019-05-24 02:56 | Billing Data ---
Date of Service May 24, 2019 Coding Level of Care Code 74208 OBS Care - Level 3
== END 2019-05-22 14:21 | disposition home or self-care (01) ==
LOC: ED 20:12 → 3N 20:12 → SUATTDRO 05-21 03:13 → 3N 05-21 03:52

== ENCOUNTER 2019-11-12 12:00 | Observation (INO) ==
[2019-11-12] MEDS ORDERED: ONDANSETRON INJ 2 MG/ML 2 ML VIAL IV STA ×2 (12:19→13:46)
[2019-11-12] MEDS ORDERED: SODIUM CHLORIDE 0.9% 1000ML 1,000 ML IV ONE (12:19)
[2019-11-12] MEDS ORDERED: KETOROLAC TROMETHAMINE 15 MG/ML VIAL IV STA (12:19)
[2019-11-12] MEDS ORDERED: DiphenhydrAMINE HCL 50 MG/ML VIAL IV STA (12:19)
[2019-11-12] MEDS ORDERED: PROMETHAZINE 6.25 MG/50.25 ML BAG IV STA (12:19)
--- NOTE | 2019-11-12 12:25 | Emergency Department Note ---
Impression & Plan Dehydration, Cyclic vomiting syndrome, Vomiting and diarrhea ED Provider Note NAME: BISI FLETCHER AGE: 19 SEX: F : 2000 ARRIVES VIA: Walk-In INFORMANT: [Patient] ED PROVIDER(S): [Howard Cruz MD] CHIEF COMPLAINT: Vomiting HISTORY OF PRESENT ILLNESS: The patient is a 19-year-old female who presents to the ED with complaints of vomiting. The patient started school yesterday here at [facility] [facility]. She had some nervousness and jitteriness because of the start of school. She felt somewhat anxious yesterday and had some stomach cramping. This morning, she be judd vomiting. She also has diarrhea. The patient has a history of cyclic vomiting syndrome. She tried sumatriptan, Zofran, Benadryl and clonazepam without any relief. She presents to the ED. She has a note from her doctor's office telling her to come to the ED if the above medications fail. There has been no fever, she does have upper crampy abdominal pain that is moderate in severity. She has not had cough, cold or congestion. No shortness of breath. No urinary complaints. REVIEW OF SYSTEMS: See HPI for pertinent positives and negatives. A total of ten systems were reviewed and were otherwise negative. PMHx/PSHx: See Below SOCIAL HISTORY: See Below. PHYSICAL EXAM: GENERAL: Patient is in no acute distress. HEENT: No acute trauma, normocephalic atraumatic, mucous membranes moist, no nasal congestion, no scleral icterus. NECK: No stridor, no adenopathy, no meningismus, trachea is midline. LUNGS: Clear to auscultation bilaterally, no wheeze, no rhonchi, breath sounds equal. HEART: Without murmurs gallops or rubs, regular rate and rhythm. ABDOMEN: Soft, moderately tender in the epigastrium, bowel sounds positive, no hernias, no peritonitis. EXTREMITIES: No cyanosis or edema, full range of motion of all the joints without pain or difficulty, no signs for acute trauma. NEUROLOGIC: Oriented x 3, no acute motor or sensory deficits, no focal weakness. SKIN: No rash, no jaundice, no diaphoresis. DIFFERENTIAL DIAGNOSIS: Infection, dehydration, metabolic abnormality, hypo/hyperglycemia, cyclic vomiting syndrome, anxiety, electrolyte disturbance, anemia, hypoxia, cardiac sources, intracerebral event, toxicologic, neurologic, as well as other pathologies. EMERGENCY DEPARTMENT COURSE/PROCEDURES: Continuous Cardiac Monitoring: An order was placed for continuous cardiac monitoring. The monitor shows a rate of 78 with normal sinus rhythm. MEDICAL DECISION MAKING: There is no leukocytosis or concerning anemia. There is a normal platelet count. No renal failure or significant electrolyte abnormality. No concerning liver enzyme elevation. No evidence for pancreatitis. testing was negative. Urinalysis showed 4+ ketones consistent with dehydration, no evidence for urinary infection. On my exam, the patient did not appear toxic, she was not febrile. She had some mild discomfort with palpation of the upper abdomen, no peritonitis. The patient received a liter of IV saline and 1 L of IV lactated Ringer's. She was given IV Benadryl, IV Toradol, IV Zofran and IV Phenergan. She felt better but still somewhat nauseated. She was given IV Zofran and a dose of IV Ativan. Despite the above medications, the patient was continuing to vomit. She was given additional IV Phenergan. Patient has a history of cyclic vomiting syndrome and presents with a flareup of this disease. She has been hydrated, she has been medicated. Despite all attem pts, she is still vomiting. Hospitalization is warranted. She has been hospitalized for this issue before. I spoke to case management, the on-call hospitalist was consulted. The patient is aware of all her findings and the need for admission. Past Med/Surg History Medical History Cyclic vomiting syndrome Social History Smoking Status: Never smoker Hx Alcohol Use: No Hx Substance Use: No Preferred Language: Greek Communication Ability: Effective Fire Prevention Captain Required: No Beliefs That Will Affect Care: None Current Living Situation: Other Current Living Situation Comment: roomates/parents Feels Safe at Home: Yes Allergies Allergies Allergy/AdvReac Type Severity Reaction Status Date / Time No Known Allergies Allergy Verified 11/12/19 13:29 Home Meds Home Medications Medication Instructions Recorded Confirmed clonazepam 0.5 mg PO BID PRN 11/12/19 11/12/19 diphenhydramine HCl 50 mg PO Q6H PRN 11/12/19 11/12/19 norethindrone-e.estradiol-iron 1 tab PO DAILY 11/12/19 11/12/19 [Blisovi 24 Fe] ondansetron 4 mg PO UD PRN 11/12/19 11/12/19 prochlorperazine maleate 0 mg PO Q6 PRN 11/12/19 11/12/19 sumatriptan succinate 6 mg SUBCUT BID PRN 11/12/19 11/12/19 Previous Rx's Medication Instructions Recorded cyproheptadine 4 mg PO HS #30 tab 05/22/19 Results & Data (ED) Vital Signs Vital Signs - 24 hr 11/12/19 12:08 11/12/19 13:05 11/12/19 14:07 Temperature 36.8 C Temperature Source Oral Pulse Rate 94 H Pulse Rate [Right] 81 78 Respiratory Rate 20 16 16 Respiratory Effort / Characteristics Non-Labored Non-Labored Spontaneous Non-Labored Spontaneous Respiratory Depth Normal Normal Normal Blood Pressure 118/82 Blood Pressure [Left Arm] 127/86 116/69 Blood Pressure Mean 94 Blood Pressure Mean [Left Arm] 99 84 Blood Pressure Position [Left Arm] Lying Lying Pulse Oximetry 99 100 98 Oxygen Delivery Method Room Air Room Air Room Air Sepsis Recent Fever Within 48 Hours No Sepsis New/Unexplained Change in Mental Status N/A Sepsis Action Taken by Nursing No Action Required 11/12/19 17:03 11/12/19 18:25 Temperature Temperature Source Pulse Rate Pulse Rate [Right] 80 71 Respiratory Rate 18 Respiratory Effort / Characteristics Respiratory Depth Blood Pressure Blood Pressure [Left Arm] 130/94 135/87 Blood Pressure Mean Blood Pressure Mean [Left Arm] 106 103 Blood Pressure Position [Left Arm] Pulse Oximetry 100 99 Oxygen Delivery Method Sepsis Recent Fever Within 48 Hours Sepsis New/Unexplained Change in Mental Status Sepsis Action Taken by Residential Medications Current Medication List: was personally reviewed by me Laboratory Data Attestation: I reviewed the patient's lab results. Result diagrams: 11/12/19 12:30 11/12/19 12:30 Lab Results 11/12/19 11/12/19 11/12/19 Range/Units 12:30 12:30 12:30 WBC 6.96 (4.8-10.8) K/uL RBC 5.20 (4.2-5.4) M/uL Hgb 15.4 (12.0-16.0) g/dL Hct 43.0 (37-47) % MCV 82.7 (80-100) fL MCH 29.6 (25-34) pg MCHC 35.8 (32-36) g/dL RDW Std Deviation 37.6 (36.4-46.3) fL RDW Coeff of Kady 12.5 (11.5-14.5) % Plt Count 301 (130-400) K/uL MPV 10.2 (7.4-10.4) fL Immature Gran % (Auto) 0.1 % Neut % (Auto) 71.8 % Lymph % (Auto) 22.8 % Hart % (Auto) 4.9 % Eos % (Auto) 0.0 % Baso % (Auto) 0.4 % Neut # (Auto) 4.99 (1.4-6.5) K/uL Lymph # (Auto) 1.59 (1.2-3.4) K/uL Hart # (Auto) 0.34 (0.11-0.59) K/uL Eos # (Auto) 0.00 (0-0.5) K/uL Baso # (Auto) 0.03 (0-0.2) K/uL Immature Gran # (Auto) 0.01 (0.00-0.02) K/uL Sodium 138 (136-145) mmol/L Potassium 3.6 (3.5-5.1) mmol/L Chloride 107 (98-107) mmol/L Carbon Dioxide 20 L (21-32) mmol/L Anion Gap 11.0 (3-11) BUN 8 (7-18) mg/dl Creatinine 0.86 (0.6-1.2) mg/dl Est Cr Clr Drug Dosing 70.6 ml/min Est GFR ( Amer) 111.9 Est GFR (Non-Af Amer) 96.6 BUN/Creatinine Ratio 8.8 L (10-20) Glucose 104 H (70-99) mg/dl Calcium 9.8 (8.5-10.1) mg/dl Magnesium 2.1 (1.8-2.4) mg/dl Total Bilirubin 0.7 (0.2-1) mg/dl AST 22 (15-37) U/L ALT 28 (12-78) U/L Alkaline Phosphatase 59 (45-117) U/L Total Protein 8.8 H (6.4-8.2) gm/dl Albumin 4.4 (3.4-5.0) gm/dl Globulin 4.4 H (2.5-4.0) gm/dl Albumin/Globulin Ratio 1.0 (0.9-2) Lipase 103 (73-393) U/L HCG, Qual Negative (Negative) Urine Color Urine Appearance (Clear) Urine pH (4.5-7.5) Ur Specific [place] (1.000-1.030) Urine Protein (Negative) Urine Glucose (UA) (Negative) Urine Ketones (Negative) Urine Blood (Negative) Urine Nitrite (Negative) Urine Bilirubin (Negative) Urine Urobilinogen (Negative) Ur Leukocyte Esterase (Negative) Urine WBC (Auto) (0-5) /hpf Urine RBC (Auto) (0-4) /hpf U Hyaline Cast (Auto) (0-5) /lpf U Epithel Cells (Auto) (0-5) /lpf Urine Bacteria (Auto) (Negative) 11/12/19 Range/Units 12:40 WBC (4.8-10.8) K/uL RBC (4.2-5.4) M/uL Hgb (12.0-16.0) g/dL Hct (37-47) % MCV (80-100) fL MCH (25-34) pg MCHC (32-36) g/dL RDW Std Deviation (36.4-46.3) fL RDW Coeff of Kady (11.5-14.5) % Plt Count (130-400) K/uL MPV (7.4-10.4) fL Immature Gran % (Auto) % Neut % (Auto) % Lymph % (Auto) % Hart % (Auto) % Eos % (Auto) % Baso % (Auto) % Neut # (Auto) (1.4-6.5) K/uL Lymph # (Auto) (1.2-3.4) K/uL Hart # (Auto) (0.11-0.59) K/uL Eos # (Auto) (0-0.5) K/uL Baso # (Auto) (0-0.2) K/uL Immature Gran # (Auto) (0.00-0.02) K/uL Sodium (136-145) mmol/L Potassium (3.5-5.1) mmol/L Chloride (98-107) mmol/L Carbon Dioxide (21-32) mmol/L Anion Gap (3-11) BUN (7-18) mg/dl Creatinine (0.6-1.2) mg/dl Est Cr Clr Drug Dosing ml/min Est GFR ( Amer) Est GFR (Non-Af Amer) BUN/Creatinine Ratio (10-20) Glucose (70-99) mg/dl Calcium (8.5-10.1) mg/dl Magnesium (1.8-2.4) mg/dl Total Bilirubin (0.2-1) mg/dl AST (15-37) U/L ALT (12-78) U/L Alkaline Phosphatase (45-117) U/L Total Protein (6.4-8.2) gm/dl Albumin (3.4-5.0) gm/dl Globulin (2.5-4.0) gm/dl Albumin/Globulin Ratio (0.9-2) Lipase (73-393) U/L HCG, Qual (Negative) Urine Color Dark Yellow Urine Appearance Clear (Clear) Urine pH 8.5 H (4.5-7.5) Ur Specific [place] 1.026 (1.000-1.030) Urine Protein Trace H (Negative) Urine Glucose (UA) Negative (Negative) Urine Ketones 4+ H (Negative) Urine Blood Negative (Negative) Urine Nitrite Negative (Negative) Urine Bilirubin Negative (Negative) Urine Urobilinogen Negative (Negative) Ur Leukocyte Esterase Trace H (Negative) Urine WBC (Auto) 1-5 (0-5) /hpf Urine RBC (Auto) 0-4 (0-4) /hpf U Hyaline Cast (Auto) 5-10 H (0-5) /lpf U Epithel Cells (Auto) >30 H (0-5) /lpf Urine Bacteria (Auto) Negative (Negative) Administered Medications Discontinued Medications Diphenhydramine HCl (Diphenhydramine Hcl 50 Mg/Ml Vial) 25 mg IV NOW STA Stop: 11/12/19 12:20 Last Admin: 11/12/19 12:33 Dose: 25 mg Documented by: [id number] Famotidine (Famotidine 20mg/5ml Iv Push) 20 mg IV ONE STA Stop: 08/25/20 17:53 Last Admin: 11/12/19 18:35 Dose: 20 mg Documented by: [id number] Sodium Chloride (Nss 1000ml) 1,000 mls @ 999 mls/hr IV .Q1H1M ONE Stop: 11/12/19 13:19 Last Infusion: 11/12/19 13:51 Dose: 0 mls/hr Documented by: [id number] Admin: 11/12/19 12:33 Dose: 999 mls/hr Documented by: [id number] Promethazine HCl (Phenergan) 6.25 mg in 50.25 mls @ 201 mls/hr IV NOW STA Stop: 11/12/19 12:33 Last Infusion: 11/12/19 13:09 Dose: 0 mls/hr Documented by: [id number] Admin: 11/12/19 12:34 Dose: 201 mls/hr Documented by: [id number] Lorazepam (Ativan) 0.5 mg in 1 mls @ 1 mls/min IV NOW STA Stop: 11/12/19 13:47 Last Admin: 11/12/19 13:55 Dose: 1 mls/min Documented by: [id number] Lactated Ringer's (Lr) 1,000 mls @ 999 mls/hr IV .Q1H1M STA Stop: 11/12/19 14:51 Last Infusion: 11/12/19 18:35 Dose: 0 mls/hr Documented by: [id number] Admin: 11/12/19 13:57 Dose: 999 mls/hr Documented by: [id number] Promethazine HCl 12.5 mg/ (Sodium Chloride) 50.5 mls @ 202 mls/hr IV NOW STA Stop: 11/12/19 17:08 Last Admin: 11/12/19 17:23 Dose: Not Given Documented by: [id number] Ketorolac Tromethamine (Ketorolac Tromethamine 15 Mg/Ml Vial) 15 mg IV NOW STA Stop: 11/12/19 12:20 Last Admin: 11/12/19 12:34 Dose: 15 mg Documented by: [id number] Ondansetron HCl (Ondansetron Inj 2 Mg/Ml 2 Ml Vial) 4 mg IV NOW STA Stop: 11/12/19 12:20 Last Admin: 11/12/19 12:34 Dose: 4 mg Documented by: [id number] Ondansetron HCl (Ondansetron Inj 2 Mg/Ml 2 Ml Vial) 4 mg IV NOW STA Stop: 11/12/19 13:47 Last Admin: 11/12/19 13:55 Dose: 4 mg Documented by: [id number] Promethazine HCl (Promethazine 12.5 Mg/50.5 Ml Nss) Confirm Administered Dose 12.5 mg IV .STK-MED ONE Stop: 11/12/19 17:20 Last Admin: 11/12/19 17:23 Dose: 12.5 mg Documented by: [id number] Blood Pressure Blood Pressure Findings: Elevated blood pressure Blood Pressure Disposition: further management by hospitalist Discharge Plan Visit Data Chief Complaint: Vomiting Stated Complaint: VOMITING,DIARRHEA,NAUSEA ED Provider: Howard Cruz Discharge Problem: Dehydration, Cyclic vomiting syndrome, Vomiting and diarrhea Patient Disposition: Admitted As Inpatient Condition: Good Discharge Instructions Bronwyn/Other Patient Handouts: Abdominal Pain Activity Restrictions/Additional Instructions: fluids rest meds as before return for worsening symptoms or return of symptoms lab work was ok you were dehydrated today Interventions: ED Discharge Assessment Last Done: 11/12/19 18:26 Forms Stand Alone Forms: Work/School Release (ED), [facility], Virtual Emergency Department, Important Visit Information Prescriptions Prescriptions: No Action prochlorperazine maleate 10 mg tablet 0 mg PO Q6 PRN (Reason: Nausea And Vomiting) RF: 0 diphenhydramine HCl 25 mg Capsule 50 mg PO Q6H PRN (Reason: Unknown) RF: 0 ondansetron 4 mg tablet,disintegrating 4 mg PO UD PRN (Reason: Nausea And Vomiting) RF: 0 sumatriptan succinate 6 mg/0.5 mL pen injector 6 mg SUBCUT BID PRN (Reason: Migraine Headache) RF: 0 clonazepam 0.5 mg tablet,disintegrating 0.5 mg PO BID PRN (Reason: cyclic vomiting) RF: 0 norethindrone-e.estradiol-iron [Blisovi 24 Fe] 1 mg-20 mcg (24)/75 mg (4) tablet 1 tab PO DAILY RF: 0 cyproheptadine 4 mg Tablet 4 mg PO HS Qty: 30 RF: 0 Referrals [facility]: [facility] [Primary Care Provider] -
[2019-11-12 12:36] LABS: Basophils # (auto) 0.03 K/uL (0-0.2); Basophils % (auto) 0.4 %; Hemoglobin 15.4 g/dL (12.0-16.0); Immature Granulocytes # (auto) 0.01 K/uL (0.00-0.02); Immature Granulocytes % (auto) 0.1 %; Lymphocytes # (auto) 1.59 K/uL (1.2-3.4); Lymphocytes % (auto) 22.8 %; Mean Corpuscular Hemoglobin 29.6 pg (25-34); Mean Corpuscular Hgb Conc 35.8 g/dL (32-36); Mean Corpuscular Volume 82.7 fL (80-100); Mean Platelet Volume 10.2 fL (7.4-10.4); Monocytes # (auto) 0.34 K/uL (0.11-0.59); Monocytes % (auto) 4.9 %; Neutrophils # (auto) 4.99 K/uL (1.4-6.5); Neutrophils % (auto) 71.8 %; Platelet Count 301 K/uL (130-400); RDW Coefficient of Variation 12.5 % (11.5-14.5); RDW Standard Deviation 37.6 fL (36.4-46.3); White Blood Count 6.96 K/uL (4.8-10.8)
[2019-11-12 12:54] LABS: Albumin Level 4.4 gm/dl (3.4-5.0); BUN Creatinine Ratio 8.8 (10-20); Calcium 9.8 mg/dl (8.5-10.1); Creatinine Clr Calc Pharmacy 70.6 ml/min; Est GFR (African American) 111.9; Est GFR (Non-African American) 96.6; Magnesium 2.1 mg/dl (1.8-2.4); Potassium 3.6 mmol/L (3.5-5.1); Pregnancy Test, Serum Negative (Negative)
[2019-11-12 12:56] LABS: Bilirubin,Total 0.7 mg/dl (0.2-1); Globulin 4.4 gm/dl (2.5-4.0); Total Protein 8.8 gm/dl (6.4-8.2)
[2019-11-12 13:13] LABS: Appearance Urine Clear (Clear); Bacteria Urine Automated Negative (Negative); Bilirubin Urine Negative (Negative); Blood Urine Negative (Negative); Color Urine Dark Yellow; Epithelial Cell Urine Auto >30 /lpf (0-5); Glucose Urine UA Negative (Negative); Ketones Urine 4+ (Negative); Leukocyte Esterase Urine Trace (Negative); Nitrite Urine Negative (Negative); RBC Urine Automated 0-4 /hpf (0-4); Specific Gravity Urine 1.026 (1.000-1.030); Urobilinogen Urine Negative (Negative); pH Urine 8.5 (4.5-7.5)
[2019-11-12] MEDS ORDERED: LORazepam 0.5 MG/1 ML VIAL IV STA (13:46)
[2019-11-12 13:48] LABS: Protein Urine Trace (Negative); Sulfosalicylic Acid Urine Positive (Negative)
[2019-11-12] MEDS ORDERED: LACTATED RINGER'S 1,000 ML IV STA (13:51)
[2019-11-12] MEDS ORDERED: PROMETHAZINE HCL 12.5 MG in SODIUM CHLORIDE 0.9% 50 ML IV STA (16:54)
[2019-11-12] MEDS ORDERED: PROMETHAZINE 12.5 MG/50.5 ML NSS IV ONE (17:19)
--- NOTE | 2019-11-12 17:41 | History & Physical Report ---
Date of Service November 12, 2019 Assessment & Plan (1) Cyclic vomiting syndrome: Whitney is a 19-year-old female with a past medical history of cyclic vomiting syndrome who presents to the ER with intractable vomiting Nausea/vomiting, cyclic vomiting exacerbation Triggering/exacerbating factors may include onset of menses Monday, alcohol ingestion 1 day ago, recent stress of returning to [employer] Hold home clonazepam Benadryl 50 mg p.o. every 6 hours as needed Continue cyproheptadine 4 mg p.o. nightly Ativan 0.5 mg every 4 hours PRN Continue capsaicin topical thin film to stomach 3 times daily to 4 times daily as needed Zofran every 6 hours as needed Phenergan every 6 hours as needed, stagger with Zofran by 3 hours Famotidine 20 mg twice daily NSS +30 KCl while not tolerating foods and vomiting Given similar course and symptoms compared to prior episodes, no RUQ/RLQ pain, normal transaminases, and normal lipase level defer imaging at this time CBC, CMP daily OCP Patient on Blisovi 24 FE Her roommate will bring this in for her, recommend continuing her home OCP as s cheduled [facility] keeley, UPT negative on admit No other chronic medical problems, denies other chronic medications FEN GI: Regular diet as tolerated, IVF M as above while not tolerating good p.o. and vomiting DVT prophylaxis: SCDs, ambulate CODE STATUS: Full code Disposition: Medical/surgical (2) Vomiting and diarrhea: (3) Dehydration: (4) Vomiting: (5) Upper abdominal pain: History of Present Illness Chief Complaint: Nausea, vomiting Primary Care Provider: [facility] Whitney is a 19-year-old female with a past medical history of cyclic vomiting syndrome who presents to the ER with intractable vomiting Whitney reports that she arrived to [employer] back to school on Monday. She had some increased anxiety and decreased appetite with a little bit of nausea over the weekend, but 1 day ago in the evening her nausea increased. She took injectable sumatriptan, Benadryl, Zofran, used a heating pad, and used topical stomach capsaicin cream which has been a treatment regimen prescribed to her by her outpatient providers for cyclical vomiting syndrome. At 7:00 this morning she woke up with worsened nausea and multiple episodes of emesis. She is had 14 episodes of emesis nonbloody, nonbilious since this morning. She reports that she felt transient relief with sumatriptan at home, and with sumatriptan given in the ED but that this did not left and her nausea quickly returned. She has felt a little chilly today. Otherwise denies fever. She has epigastric tenderness and endorses loose bowel movements about 6 times today, no blood or melena. She does not have a history of migraines, does not use cannabis, denies pots/blood pressure problems. She gets regular menses approximately every 28 days lasting 3 to 4 days. She just started her period on Monday. She has not noticed an association between menses and her cyclic vomiting episodes in the past. She takes an oral contraceptive pill. Last date Monday at about 4 PM which increased epigastric pain. She reports she went out with friends on Monday, 1 day ago, and shared a picture at [facility] with her roommate which greatly worsened her nausea and symptoms. She reports she felt a little tipsy, but "is a light weight, and did not actually drink that much ". She has had prior episodes triggered by small amounts of alcohol use in the past. Denies tobacco, marijuana, and recreational drug use. Medical history: Reviewed Medications: Reviewed Surgical history: Reviewed No known drug allergies CODE STATUS: Full code Allergies Allergy/AdvReac Type Severity Reaction Status Date / Time No Known Allergies Allergy Verified 11/12/19 13:29 Home Medications Home Medications Medication Instructions Recorded Confirmed Type cyproheptadine 4 mg PO HS #30 tab 05/22/19 11/12/19 Rx clonazepam 0.5 mg PO BID PRN 11/12/19 11/12/19 History diphenhydramine HCl 50 mg PO Q6H PRN 11/12/19 11/12/19 History norethindrone-e.estradiol-iron 1 tab PO DAILY 11/12/19 11/12/19 History [Blisovi 24 Fe] ondansetron 4 mg PO UD PRN 11/12/19 11/12/19 History prochlorperazine maleate 0 mg PO Q6 PRN 11/12/19 11/12/19 History sumatriptan succinate 6 mg SUBCUT BID PRN 11/12/19 11/12/19 History Past Med/Surg History Medical History Cyclic vomiting syndrome Social History Smoking Status: Never smoker Hx Alcohol Use: No Hx Substance Use: No Preferred Language: Luxembourgish Communication Ability: Effective Batter Scaler Required: No Beliefs That Will Affect Care: None Current Living Situation: Other Current Living Situation Comment: roomates/parents Feels Safe at Home: Yes Review of Systems Review of Systems: All systems reviewed & are unremarkable except as noted in HPI & below Physical Exam Physical Exam: General: A&Ox3. NAD. Cooperative. HEENT: Atraumatic, normocephalic. Pulm: CTAB A&P. -wheezes, -rales, -rhonchi. Symmetrical chest rise. No increase work of breathing. No respiratory distress. Cardiac: RRR, -mrg. Radial pulses intact and symmetrical. Abdominal: Tender to palpation at the epigastrium. No right upper quadrant or right lower quadrant tenderness. Abdomen soft, nondistended. No rigidity. No rebound tenderness. CN II: Visual barnes are full to confrontation. Pupils are equal and react to light and accomidation. Visual acuity grossly intact. CN III, IV, : At primary gaze, there is no eye deviation. EoM intact without nystagmus. No visual field cuts. CN V: Facial sensation is intact to soft touch in all 3 divisions bilaterally. CN VII: No facial asymmetry, full strength to eyebrow raise, smile, eye close, and cheek puff. CN VII: Hearing is grossly intact. CN IX, X: Palate elevates symmetrically. Phonation is normal without dysarthria. CN XI: Head turning and shoulder shrug are intact CN XII: Tongue protrudes midline. Sensory: Light touch, pinprick intact in upper and low extremities without deficit or asymmetry. Strength: RUE: Shoulder flexion/extension/internal rotation/external rotation, elbow flexion/extension, finger flexion/extension, manager coding strength, interosseous 5/5 LUE: Shoulder flexion/extension/internal rotation/external rotation, elbow flexion/extension, finger flexion/extension, manager coding strength, interosseous 5/5 RLE: Hip flexion, ankle plantar flexion/dorsiflexion 5/5 LLE: Hip flexion, ankle plantar flexion/dorsiflexion 5/5 Results & Data Results & Data ([facility]) Vital Signs (Past 12 Hours) Vital Signs Temp Pulse Pulse Resp BP BP Pulse Ox 11/12/19 17:03 80 18 130/94 100 11/12/19 14:07 78 16 116/69 98 11/12/19 13:05 81 16 127/86 100 11/12/19 12:08 36.8 C 94 H 20 118/82 99 Supervising Physician Co-Signing Physician Notes Resident Physician Supervision Note: I interviewed and examined the patient. Discussed with [Name of resident] and agree with findings and plan as documented in the note. 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 Patient is returned to [facility] where she is at increased risk for the beginning of her senior year, just ended her menstrual period which is been normal for her. Did have alcohol ingestion 24 hours prior and has had escalating symptoms of her cyclic vomiting syndrome. Patient is has tried oral home remedies including antiemetics sumatriptan injection and capsaicin cream to her abdomen without relief in the emergency department she was hydrated and given parenteral antiemetic medications also without relief is recommended she come in for symptom control patient was seen independently by Shaan Domingo who is a senior [facility] medical massage therapist rotating through admission service. On intake the patient appears uncomfortable with diffuse abdominal pain not unlike her previous episodes I have reviewed the past medical surgical history family history and social history in resident's note does not include anything significant other than cyclic vomiting syndrome Review of systems mild to moderate distress and fatigue from abdominal pain and medications no headache, blurry or double vision no speech or swallowing issues no chest pain, pressure or palpitations no shortness of breath, cough or wheezes Diffuse abdominal pain nausea vomiting of bilious emesis no recent diarrhea no dysuria, hematuria or frequency menstrual period is on track to normal guerrero and consistency no focal joint pain or swelling no back pain, CVA tenderness or radicular pain Her physical examination vital signs are reviewed she looks uncomfortable she does have dry mucous membranes there is vomitus in the bag which is green her heart is tachycardic but regular her lungs are clear abdomen is hypoactive bowel sounds diffusely tender no rebound or guarding not an acute abdomen extremities are without edema skin exam is without bruises or rashes neurologically she is alert oriented and appropriate although sedate for medications she can spontaneously move all extremities with no focal neurological deficits Plans will be to provide symptomatic relief with antiemetics PPIs and IV fluids. The patient also states she would be willing to try another round of capsaicin topical abdominal treatment Documented By: He العراقي MD Resident Activity Tracking Resident Involvement: Resident Care Provided Care Provided: Adult Hospital Medicine (1) Vomiting Nausea presence: with nausea Vomiting Intractability: intractable Vomiting type: unspecified Qualified Code(s): R11.2 - Nausea with vomiting, unspecified
[2019-11-12] MEDS ORDERED: FAMOTIDINE 20MG/5ML IV PUSH IV STA (17:52)
--- NOTE | 2019-11-12 18:59 | History & Physical Report ---
Date of Service November 12, 2019 Assessment & Plan (1) Cyclic vomiting syndrome: (2) Vomiting and diarrhea: (3) Dehydration: (4) Vomiting: (5) Upper abdominal pain: History of Present Illness Primary Care Provider: [facility] This note is is can serve as the billing venue for resident visit please see the resident's note for my H&P attestation Allergies Allergy/AdvReac Type Severity Reaction Status Date / Time No Known Allergies Allergy Verified 11/12/19 13:29 Home Medications Home Medications Medication Instructions Recorded Confirmed Type cyproheptadine 4 mg PO HS #30 tab 05/22/19 11/12/19 Rx clonazepam 0.5 mg PO BID PRN 11/12/19 11/12/19 History diphenhydramine HCl 50 mg PO Q6H PRN 11/12/19 11/12/19 History norethindrone-e.estradiol-iron 1 tab PO DAILY 11/12/19 11/12/19 History [Blisovi 24 Fe] ondansetron 4 mg PO UD PRN 11/12/19 11/12/19 History prochlorperazine maleate 0 mg PO Q6 PRN 11/12/19 11/12/19 History sumatriptan succinate 6 mg SUBCUT BID PRN 11/12/19 11/12/19 History Past Med/Surg History Medical History Cyclic vomiting syndrome Social History Smoking Status: Never smoker Hx Alcohol Use: No Hx Substance Use: No Preferred Language: Cambodian Communication Ability: Effective Director Diversity Required: No Beliefs That Will Affect Care: None Current Living Situation: Other Current Living Situation Comment: roomates/parents Feels Safe at Home: Yes Results & Data Results & Data ([facility]) Vital Signs (Past 12 Hours) Vital Signs Temp Pulse Pulse Resp BP BP Pulse Ox 11/12/19 18:25 71 135/87 99 11/12/19 17:03 80 18 130/94 100 11/12/19 14:07 78 16 116/69 98 11/12/19 13:05 81 16 127/86 100 11/12/19 12:08 98.2 F 94 H 20 118/82 99 Code Status & VTE Plan VTE Prophylaxis Plan VTE Prophylaxis will be ordered: Yes Supervising Physician Co-Signing Physician Notes Resident Physician Supervision Note: I interviewed and examined the patient. Discussed with [Name of resident] and agree with findings and plan as documented in the note. 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 Patient is returned to [facility] where she is at increased risk for the beginning of her senior year, just ended her menstrual period which is been normal for her. Did have alcohol ingestion 24 hours prior and has had escalating symptoms of her cyclic vomiting syndrome. Patient is has tried oral home remedies including antiemetics sumatriptan injection and capsaicin cream to her abdomen without relief in the emergency department she was hydrated and given parenteral antiemetic medications also without relief is recommended she come in for symptom control patient was seen independently by Shaan Domingo who is a senior [facility] medical and scientific illustrator rotating through admission service. On intake the patient appears uncomfortable with diffuse abdominal pain not unlike her previous episodes I have reviewed the past medical surgical history family history and social history in resident's note does not include anything significant other than cyclic vomiting syndrome Review of systems mild to moderate distress and fatigue from abdominal pain and medications no headache, blurry or double vision no speech or swallowing issues no chest pain, pressure or palpitations no shortness of breath, cough or wheezes Diffuse abdominal pain nausea vomiting of bilious emesis no recent diarrhea no dysuria, hematuria or frequency menstrual period is on track to normal guerrero and consistency no focal joint pain or swelling no back pain, CVA tenderness or radicular pain Her physical examination vital signs are reviewed she looks uncomfortable she does have dry mucous membranes there is vomitus in the bag which is green her heart is tachycardic but regular her lungs are clear abdomen is hypoactive bowel sounds diffusely tender no rebound or guarding not an acute abdomen extremities are without edema skin exam is without bruises or rashes neurologically she is alert oriented and appropriate although sedate for medications she can spontaneously move all extremities with no focal neurological deficits Plans will be to provide symptomatic relief with antiemetics PPIs and IV fluids. The patient also states she would be willing to try another round of capsaicin topical abdominal treatment Documented By: He العراقي MD PG Care Time/CCT Total # of Minutes Spent Total Time Spent with Patient: Total time spent is greater than 50% in coordination of care (as documented) at patient's floor/unit and/or counseling patient: Coding Level of Care Code 28203 OBS Care - Level 2 Diagnoses Cyclic vomiting syndrome R11.15 Vomiting and diarrhea R11.10; R19.7 Dehydration E86.0 Vomiting R11.2 Nausea presence: with nausea Vomiting Intractability: intractable Vomiting type: unspecified Upper abdominal pain R10.10 (1) Vomiting Nausea presence: with nausea Vomiting Intractability: intractable Vomiting type: unspecified Qualified Code(s): R11.2 - Nausea with vomiting, unspecified
[2019-11-12] MEDS ORDERED: CAPSAICIN CR 0.075% 60 GM TUBE EXT PRN (20:08)
[2019-11-12] MEDS ORDERED: LORazepam 0.5 MG/1 ML VIAL IV PRN (20:08)
[2019-11-12] MEDS: POTASSIUM CHLORIDE 30 MEQ in SODIUM CHLORIDE 0.9% 1000ML 1,000 ML IV SCH (21:02)
[2019-11-12] MEDS: FAMOTIDINE 20 MG in SYRINGE 3 ML IV SCH (21:02)
[2019-11-12] MEDS: ONDANSETRON INJ 2 MG/ML 2 ML VIAL IV PRN (21:10)
[2019-11-12] MEDS: CYPROHEPTADINE HCL 4 MG TAB PO SCH (22:04)
[2019-11-12] MEDS: PROMETHAZINE HCL 12.5 MG in SODIUM CHLORIDE 0.9% 50 ML IV PRN (22:04)
[2019-11-13] MEDS: PROMETHAZINE HCL 12.5 MG in SODIUM CHLORIDE 0.9% 50 ML IV PRN ×3 (03:39→17:52)
[2019-11-13] MEDS: POTASSIUM CHLORIDE 30 MEQ in SODIUM CHLORIDE 0.9% 1000ML 1,000 ML IV SCH ×2 (06:09→15:44)
[2019-11-13 07:26] LABS: Basophils # (auto) 0.03 K/uL (0-0.2); Basophils % (auto) 0.3 %; Eosinophils # (auto) 0.03 K/uL (0-0.5); Eosinophils % (auto) 0.3 %; Hemoglobin 12.9 g/dL (12.0-16.0); Immature Granulocytes # (auto) 0.02 K/uL (0.00-0.02); Immature Granulocytes % (auto) 0.2 %; Lymphocytes # (auto) 2.45 K/uL (1.2-3.4); Lymphocytes % (auto) 25.7 %; Mean Corpuscular Hemoglobin 29.1 pg (25-34); Mean Corpuscular Hgb Conc 33.9 g/dL (32-36); Mean Corpuscular Volume 85.8 fL (80-100); Mean Platelet Volume 10.5 fL (7.4-10.4); Monocytes # (auto) 0.89 K/uL (0.11-0.59); Monocytes % (auto) 9.3 %; Neutrophils % (auto) 64.2 %; Platelet Count 276 K/uL (130-400); RDW Coefficient of Variation 12.7 % (11.5-14.5); RDW Standard Deviation 40.4 fL (36.4-46.3); Red Blood Count 4.43 M/uL (4.2-5.4); White Blood Count 9.52 K/uL (4.8-10.8)
[2019-11-13 07:56] LABS: Albumin Level 3.4 gm/dl (3.4-5.0); BUN Creatinine Ratio 11.5 (10-20); Calcium 8.6 mg/dl (8.5-10.1); Creatinine Clr Calc Pharmacy 90.6 ml/min; Est GFR (African American) 145.6; Est GFR (Non-African American) 125.7; Potassium 3.6 mmol/L (3.5-5.1)
[2019-11-13 08:02] LABS: Bilirubin,Total 0.6 mg/dl (0.2-1); Globulin 3.3 gm/dl (2.5-4.0); Total Protein 6.7 gm/dl (6.4-8.2)
[2019-11-13] MEDS: FAMOTIDINE 20 MG in SYRINGE 3 ML IV SCH ×2 (08:02→20:21)
[2019-11-13] MEDS: ONDANSETRON INJ 2 MG/ML 2 ML VIAL IV PRN ×2 (08:02→18:02)
[2019-11-13] MEDS ORDERED: SUMAtriptan succinate 6 MG/0.5 ML VIAL SQ ONE (09:45)
[2019-11-13] MEDS ORDERED: SUMAtriptan succinate 6 MG/0.5 ML VIAL SQ STA (18:33)
[2019-11-13] MEDS ORDERED: FOSAPREPITANT DIMEGLUMINE 150 MG in SODIUM CHLORIDE 0.9% 145 ML IV STA (18:33)
--- NOTE | 2019-11-13 18:53 | Hospitalist Progress Note ---
Date of Service November 13, 2019 Assessment & Plan (1) Cyclic vomiting syndrome: with exacerbation. patient improved s/p imitrex SC today, but then abdominal pain/emesis returned. gave additional imitrex SC with IV emend for refractory symptoms. x-rays of abdomen obtained to rule out any obstructive process - negative for such. cont IVF. allow clear liquids as tolerated. cont periacton for prophylaxis. cont IV H2 abisai. if symptoms do not matilde despite SC imitrex and emend then consider formal GI consultation. of note - all labs acceptable including LFTs, lipase, etc. at this time I would consider patient low risk for COVID-19 given absence of fever/resp symptoms but there is a subset of patients that have GI-predominant symptoms. consider COVID-19 testing if any worsening, fever develops, etc. (2) Vomiting and diarrhea: see above in "cyclic vomiting syndrome" (3) DVT prophylaxis: low risk ambulation defer on chemical means mother updated twice today Admission and Anticipated Discharge Date Admission Date: November 12, 2019 Subjective patient reports dx of cyclic vomiting syndrome in [place] at age 16. evaluated by both neurology and GI at that time. no personal or family h/o migraines. has been hospitalized 2x's prior for cyclic vomiting episodes. pt's mother is at bedside, and she confirms that imitrex and emend have been used successfully on past admissions to break the cycle. prior to my bedside rounds I administered SC imitrex for persistent GI symptoms. by the time of my visit patient reported that her abdominal pain and vomiting were markedly better post-imitrex injection. current symptoms are similar to a April 2019 hospital admission for her cyclic vomiting. denies any recent COVID-19 symptoms - no fever, chills, headache, myalgia, COVID-19 exposure. did have diarrhea yesterday - now resolved. no cough or dyspnea. Review of Systems Constitutional: no fever and no chills Respiratory: no cough, no dyspnea and no dyspnea on exertion Cardiovascular: no chest pain Gastrointestinal: + abdominal pain, + nausea, + vomiting and + diarrhea/loose stools Physical Exam Constitutional: well developed and well nourished; no acute distress ENMT: external ear and nose normal, oropharynx normal Respiratory: normal respiratory effort, lungs clear to auscultation Cardiovascular: Rate/Rhythm: regular rate and regular rhythm Heart Sounds: normal S1 and normal S2; no murmur Vessels: posterior tibial pulses present and dorsalis pedis pulses present Extremities: no edema Gastrointestinal (Abdomen): normal bowel sounds, soft, nontender, no hepatosplenomegaly Skin: no rashes, warm and dry Psychiatric: A+Ox3, euthymic affect Results & Data Results & Data ([facility]) Vital Signs (Past 12 Hours) Vital Signs Temp Pulse Resp BP Pulse Ox 11/13/19 15:22 36.9 C 67 20 108/70 99 11/13/19 11:41 37.3 C 78 20 100/66 98 11/13/19 07:32 36.8 C 81 20 111/78 96 Laboratory Results Laboratory Results - last 24 hr 11/13/19 11/13/19 07:05 07:05 WBC 9.52 RBC 4.43 Hgb 12.9 Hct 38.0 MCV 85.8 MCH 29.1 MCHC 33.9 RDW Std Deviation 40.4 RDW Coeff of Kady 12.7 Plt Count 276 MPV 10.5 H Immature Gran % (Auto) 0.2 Neut % (Auto) 64.2 Lymph % (Auto) 25.7 Noble % (Auto) 9.3 Eos % (Auto) 0.3 Baso % (Auto) 0.3 Neut # (Auto) 6.10 Lymph # (Auto) 2.45 Noble # (Auto) 0.89 H Eos # (Auto) 0.03 Baso # (Auto) 0.03 Immature Gran # (Auto) 0.02 Sodium 138 Potassium 3.6 Chloride 110 H Carbon Dioxide 20 L Anion Gap 8.0 BUN 8 Creatinine 0.67 Est Cr Clr Drug Dosing 90.6 Est GFR ( Amer) 145.6 Est GFR (Non-Af Amer) 125.7 BUN/Creatinine Ratio 11.5 Glucose 92 Calcium 8.6 Total Bilirubin 0.6 AST 19 ALT 21 Alkaline Phosphatase 47 Total Protein 6.7 D Albumin 3.4 Globulin 3.3 Albumin/Globulin Ratio 1.0 PG Care Time/CCT Total # of Minutes Spent Total Time Spent with Patient: Total time spent is greater than 50% in coordination of care (as documented) at patient's floor/unit and/or counseling patient: Coding Level of Care Code 71020 Subseq Obs Care Lvl 2 Diagnoses Cyclic vomiting syndrome R11.15 Vomiting and diarrhea R11.10; R19.7 DVT prophylaxis Z29.9
--- NOTE | 2019-11-13 19:15 | XRay Report ---
PA CHEST RADIOGRAPH AND UPRIGHT AND SUPINE AP RADIOGRAPHS OF THE ABDOMEN CLINICAL HISTORY: persistent nausea/abdominal pain COMPARISON STUDY: Chest radiograph and abdominal series May 20, 2019. CT of the abdomen and pelvis May 21, 2019. FINDINGS: Lung volumes are normal. Lungs are clear. There is no pneumothorax or pleural effusion. Car diac size is normal. Mediastinal contours are normal. There is no evidence for pulmonary edema. There is no free air. The bowel gas pattern is normal. No urinary calculi are identified. Visualized skele joseph structures are unremarkable. IMPRESSION: 1. No free air or evidence of bowel obstruction. 2. No acute cardiopulmonary findings. ACT 112: Negative or not required by law. Electronically signed by: Hoang Cali M.D. 11/13/2019 7:14 PM
[2019-11-13] MEDS: CYPROHEPTADINE HCL 4 MG TAB PO SCH (20:21)
[2019-11-14] MEDS: PROMETHAZINE HCL 12.5 MG in SODIUM CHLORIDE 0.9% 50 ML IV PRN (00:41)
[2019-11-14] MEDS: POTASSIUM CHLORIDE 30 MEQ in SODIUM CHLORIDE 0.9% 1000ML 1,000 ML IV SCH (06:02)
[2019-11-14 08:04] LABS: BUN Creatinine Ratio 14.2 (10-20); Calcium 8.1 mg/dl (8.5-10.1); Est GFR (African American) 146.4; Est GFR (Non-African American) 126.3; Magnesium 2.2 mg/dl (1.8-2.4); Potassium 4.1 mmol/L (3.5-5.1)
[2019-11-14] MEDS: FAMOTIDINE 20 MG in SYRINGE 3 ML IV SCH (08:25)
--- NOTE | 2019-11-14 13:43 | Discharge Summary ---
Date of Service date of admission - November 12, 2019 date of discharge - November 14, 2019 Admission HPI Per Admitting Provider Whitney is a 19-year-old female with a past medical history of cyclic vomiting syndrome who presents to the ER with intractable vomiting Whitney reports that she arrived to [employer] back to school on Monday. She had some increased anxiety and decreased appetite with a little bit of nausea over the weekend, but 1 day ago in the evening her nausea increased. She took injectable sumatriptan, Benadryl, Zofran, used a heating pad, and used topical stomach capsaicin cream which has been a treatment regimen prescribed to her by her outpatient providers for cyclical vomiting syndrome. At 7:00 this morning she woke up with worsened nausea and multiple episodes of emesis. She is had 14 episodes of emesis nonbloody, nonbilious since this morning. She reports that she felt transient relief with sumatriptan at home, and with sumatriptan given in the ED but that this did not left and her nausea quickly returned. She has felt a little chilly today. Otherwise denies fever. She has epigastric tenderness and endorses loose bowel movements about 6 times today, no blood or melena. She does not have a history of migraines, does not use cannabis, denies pots/blood pressure problems. She gets regular menses approximately every 28 days lasting 3 to 4 days. She just started her period on Monday. She has not noticed an association between menses and her cyclic vomiting episodes in the past. She takes an oral contraceptive pill. Principal Diagnosis exacerbation of cyclic vomiting syndrome Discharge Exam Constitutional well developed and well nourished; no acute distress and no altered mental status ENMT external ear and nose normal, oropharynx normal Mouth: oral mucous membranes not dry Respiratory normal respiratory effort, lungs clear to auscultation Cardiovascular RRR, no murmur, no edema Heart Sounds: normal S1 and normal S2 Vessels: posterior tibial pulses present and dorsalis pedis pulses present Gastrointestinal (Abdomen) normal bowel sounds, soft, nontender, no hepatosplenomegaly Psychiatric A+Ox3, euthymic affect Discharge Data Allergies Allergy/AdvReac Type Severity Reaction Status Date / Time No Known Allergies Allergy Verified 11/12/19 13:29 Procedures Performed chest/abdominal x-rays - nonobstructive bowel gas pattern, no infiltrates Hospital Course (1) Cyclic vomiting syndrome: Exacerbation was treated with IV fluids, multiple anti-emetics, and subcutaneous triptan therapy (imitrex). Symptoms were refractory to the above and she ultimately needed a repeat dose of imitrex and a dose of Emend. With time, SC imitrex, and the Emend all GI symptoms resolved. She was resumed on a clear liquid diet and tolerated this. She was advanced to full liquids prior to discharge and tolerated this as well. x-rays of the abdomen failed to reveal any obstructive process. She was continued on her periacton for cyclic vomiting prophylaxis. All labs were acceptable during her stay including LFTs, lipase, etc. She had no evidence of any infectious process. She did not have fever or respiratory symptoms to suggest COVID-19. She was counseled that the Emend can interact with OCPs rendering the OCPs ineffective. This was the patient's second admission for cyclic vomiting in the last 6 months. Thus, a follow-up with [facility] in [place] to establish care was recommended to ensure her cyclic vomiting syndrome was under control. Total Time Total Time Spent Total Time Spent (In Minutes): 35 Total Time Includes: Examination of the Patient, Discharge Planning and Medication Reconciliation Discharge Plan Discharge Items Patient Disposition: Home - Self-Care Reason For Visit: INTRACTIBLE NAUSEA/VOMITING Discharge Diagnosis: flare-up of cyclic vomiting syndrome Condition on Discharge: Good Activity: As commented below Activity Comment: gradually increase your activities over the next few days Non-emergency contact: Primary Care Provider Call non-emergency contact if: you have any medication questions, your symptoms worsen, your pain is not controlled, your pain is worsening, your pain is unusual for you, your pain is concerning for you and you have a fever Follow-up/Referrals: Tristan Lazo [Physician] - (please refer to Dr Lazo to establish care as new patient; diagnosis - cyclic vomiting syndrome ) [facility] [Primary Care Provider] - (see [facility] within 1 week ) Diet: Full liquid Addtl Attending Provider Instructions: You were hospitalized for nausea, vomiting, abdominal pain, and dehydration from an episode/flare-up of cyclic vomiting syndrome. Liver function tests, pancreas test, and x-rays were normal. You were treated with IV fluids, IV nausea medication, and imitrex injections with ultimate resolution of your symptoms. You received an injection of Emend on 11/13/19. This medication can interact with your control pill. Please know that since they interact the control pill may not be effective until your next menstrual cycle occurs. Thus, if you are sexually active, please be certain to use a second form of control until the time of your next menstrual cycle. Over the next 2-3 days be sure to take in plenty of good hydration and gradually reintroduce bland, easy to digest solids back into your diet. Avoid fried foods, spicy foods, fast foods, excessive caffeinated beverages, and alcohol. All of these items can irritate your GI tract. If you re-develop cyclic vomiting symptoms please follow the protocol given to you by your doctors back home in [place]. If your usual medications (imitrex, zofran, etc) are not effective please seek medical attention at [facility] or [facility]. Be sure to get plenty of good sleep, exercise, and find ways to reduce stress as all of these things may help prevent additional episodes of cyclic vomiting. Continue to mask and practice social distancing to avoid COVID-19 infection. Follow-up - see separate section Return to [facility] if - * you have fever over 100.4 degrees * you have severe nausea, vomiting or abdominal pain * you have severe headache, chills, body aches, cough, or shortness of breath * any other concerns Pending Studies at Discharge: No Stand-Alone Forms: My [facility], Work/School Release (Inpt), Smoking Cessation Medications and DC Order Prescriptions: Continued prochlorperazine maleate 10 mg tablet 0 mg PO Q6 PRN (Reason: Nausea And Vomiting) RF: 0 ondansetron 4 mg tablet,disintegrating 4 mg PO UD PRN (Reason: Nausea And Vomiting) RF: 0 sumatriptan succinate 6 mg/0.5 mL pen injector 6 mg SUBCUT BID PRN (Reason: Migraine Headache) RF: 0 clonazepam 0.5 mg tablet,disintegrating 0.5 mg PO BID PRN (Reason: cyclic vomiting) RF: 0 norethindrone-e.estradiol-iron [Blisovi 24 Fe] 1 mg-20 mcg (24)/75 mg (4) tabl et 1 tab PO DAILY RF: 0 diphenhydramine HCl 25 mg Capsule 50 mg PO Q6H PRN (Reason: nausea/vomiting) Qty: 0 RF: 0 cyproheptadine 4 mg Tablet 4 mg PO HS Qty: 30 RF: 0 Discharge Orders: Discharge Order (Routine); Ordered 11/14/19 Ordered By: Corey Toth Admission Data Admit Date/Time: 11/12/19 17:52 Attending Provider: Corey Toth Admit Provider: Shaan Barksdale Primary Care Provider: [facility] Other Providers: Jaguar Rodríguez Other Interventions: Discharge Summary Assessment (RN) Last Done: 11/14/19 13:39 Coding Level of Care Code 43908 OBS Care - Discharge Diagnoses Cyclic vomiting syndrome R11.15
== END 2019-11-14 14:37 | disposition home or self-care (01) ==
LOC: ED 12:00 → 2N 12:00 → SUATTDRO 17:52 → 2N 18:26

== ENCOUNTER 2019-11-29 20:34 | Observation (INO) ==
[2019-11-29] MEDS ORDERED: DiphenhydrAMINE HCL 50 MG/ML VIAL IV STA ×2 (21:03→21:14)
[2019-11-29] MEDS ORDERED: METOCLOPRAMIDE HCL INJ 5 MG/ML 2 ML VIAL IV STA (21:03)
[2019-11-29] MEDS ORDERED: SODIUM CHLORIDE 0.9% 1000ML 1,000 ML IV ONE ×2 (21:03→22:56)
--- NOTE | 2019-11-29 21:24 | Emergency Department Note ---
Impression & Plan Vomiting, Dehydration, Upper abdominal pain, Hypokalemia ED Provider Note NAME: BISI FLETCHER AGE: 19 SEX: F : 2000 ARRIVES VIA: Walk-In INFORMANT: Patient, ED PROVIDER(S): Marcial Pina MD Chief Complaint: Nausea vomiting HPI: Patient does present with complaints of nausea vomiting. This did begin t say. The patient has had approximately 10 episodes of nonbloody nonbilious emesis. Patient denies any alcohol or tobacco use. The patient does have a known history of cyclical vomiting was recently admitted and discharged at the end of October for similar issues. The patient did improve and was able to tolerate by mouth at the time of discharge. The patient has tried Benadryl, Imitrex subcu, Zofran, as well as an antiemetic suppository without improvement in her symptoms. The patient does complain of some upper abdominal discomfort. The patient states she has had some decreased urine output and has had an increase feeling of needing to go more frequently. Patient's LMP was several we eks ago and on remarkable. Is any trauma. Patient denies any recent travel. Patient is a [employer] student. Patient denies any sick contacts, fevers, chills, chest pains, shortness of breath or cough. ROS: See HPI for pertinent positives and negatives. A total of 10 systems were reviewed and otherwise negative. Past medical history: See below Surgical history: See below Social history: See below Physical Exam: GENERAL: Mildly uncomfortable in appearance. EYE EXAM: Normal conjunctiva. PERRL, no anisocoria and EOM's grossly intact w/o pain. NECK: Supple, no nuchal rigidity, no adenopathy, non-tender. No signs of meningismus. LUNGS: Clear to auscultation. Normal chest wall mechanics. HEART: NSR, no MRG. ABDOMEN: Abdomen soft, upper abdominal discomfort without peritonitis, no right upper quadrant pain. Normo-active bowel sounds, no masses, no rebound or guarding. BACK: No CVA TTP. SKIN: No rashes and no bruising. UPPER EXTREMITIES: Upper extremities are grossly normal. LOWER EXTREMITIES: Grossly normal, no edema. NEURO EXAM: A&O x3, cranial nerves II-XII grossly intact, normal speech, moves all 4 extremities on command w/o issue. Differential diagnoses: Appendicitis, ovarian cyst, ovarian torsion, ectopic , TOA, PID, infections, diverticulitis, UTI, obstruction, mesenteric ischemia, aortic pathology, inflammatory bowel disease, renal colic, PUD, pancreatitis, biliary pathology, hernia, volvulus, constipation, as well as other pathologies. Course: Patient was seen and evaluated the bedside. Full history physical exam was performed. EKG: None Imaging Studies: None Cardiac monitoring: An order was placed for continuous cardiac monitoring. The monitor shows a rate of 86 with sinus rhythm. MDM: Patient does present with concern for intractable nausea and vomiting. Blood work was obtained and the patient was given IV fluids and medications. Patient has a normal white count H&H and platelet count. Patient's kidney function is unremarkable. Patient does have very mild hypokalemia and hypercalcemia 10.2. The patient is likely dry given the 4+ ketones. test is negative. Patient does have leuks and whites but has numerous epithelial cells. Do not believe that the patient has an infectious process at this time. The patient was trialed on multiple rounds of antiemetics and IV fluids. The patient did still have persistent discomfort. I did review the patient's prior records which noted the patient had received Emend. I did speak with the on-call hospitalist and the patient was admitted to Dr. Noe. This did seem to improve her symptoms. This was ordered. Upon reassessment thereafter the patient did have some improvement in symptoms. Past Med/Surg History Medical History (Updated 11/30/19 @ 02:08 by Cristina Noe DO) Cyclic vomiting syndrome History of trigger finger Family History (Updated 11/30/19 @ 02:07 by Cristina Noe DO) Other Diabetes Heart disease Social History (Updated 11/30/19 @ 02:07 by Marcial Pina MD) Smoking Status: Never smoker Hx Alcohol Use: Yes Hx Substance Use: No Preferred Language: Greek Communication Ability: Effective Housing Quality Standard Inspector Required: No Beliefs That Will Affect Care: None Feels Safe at Home: Yes Allergies Allergies Allergy/AdvReac Type Severity Reaction Status Date / Time No Known Allergies Allergy Verified 11/29/19 23:09 Home Meds Home Medications Medication Instructions Recorded Confirmed clonazepam 0.5 mg PO BID PRN 11/12/19 11/29/19 norethindrone-e.estradiol-iron 1 tab PO DAILY 11/12/19 11/29/19 [Blisovi 24 Fe] ondansetron 4 mg PO UD PRN 11/12/19 11/29/19 prochlorperazine maleate 10 mg PO Q6 PRN 11/12/19 11/29/19 sumatriptan succinate 6 mg SUBCUT BID PRN 11/12/19 11/29/19 Previous Rx's Medication Instructions Recorded cyproheptadine 4 mg PO HS #30 tab 05/22/19 diphenhydramine HCl 50 mg PO Q6H PRN #0 cap 11/14/19 Results & Data (ED) Vital Signs Vital Signs - 24 hr 11/29/19 20:50 11/29/19 21:03 11/29/19 22:30 Temperature 36.9 C Temperature Source Oral Pulse Rate 94 H 82 Pulse Rate from SpO2 Sensor 80 Pulse Rhythm Regular Pulse Strength Normal Respiratory Rate 17 15 Respiratory Effort / Characteristics Non-Labored Spontaneous Respiratory Depth Normal Respiratory Pattern Regular Blood Pressure 121/69 Blood Pressure Mean 86 Pulse Oximetry 99 100 Oxygen Delivery Method Room Air Room Air Room Air Sepsis Recent Fever Within 48 Hours No Sepsis New/Unexplained Change in Mental Status No Sepsis Action Taken by Nursing No Action Required 11/29/19 22:35 11/29/19 23:01 11/29/19 23:30 Temperature Temperature Source Pulse Rate 101 H 92 H 94 H Pulse Rate from SpO2 Sensor 100 H 91 H 80 Pulse Rhythm Pulse Strength Respiratory Rate 16 19 17 Respiratory Effort / Characteristics Respiratory Depth Respiratory Pattern Blood Pressure 120/67 132/93 117/78 Blood Pressure Mean 82 99 82 Pulse Oximetry 100 94 99 Oxygen Delivery Method Room Air Sepsis Recent Fever Within 48 Hours Sepsis New/Unexplained Change in Mental Status Sepsis Action Taken by Nursing 11/30/19 00:00 11/30/19 00:30 11/30/19 01:00 Temperature Temperature Source Pulse Rate 102 H 82 80 Pulse Rate from SpO2 Sensor 103 H 82 81 Pulse Rhythm Pulse Strength Respiratory Rate 17 18 20 Respiratory Effort / Characteristics Respiratory Depth Respiratory Pattern Blood Pressure 126/87 125/78 123/72 Blood Pressure Mean 104 85 86 Pulse Oximetry 99 98 98 Oxygen Delivery Method Sepsis Recent Fever Within 48 Hours Sepsis New/Unexplained Change in Mental Status Sepsis Action Taken by Nursing 11/30/19 01:30 Temperature Temperature Source Pulse Rate 86 Pulse Rate from SpO2 Sensor 87 Pulse Rhythm Pulse Strength Respiratory Rate 13 Respiratory Effort / Characteristics Respiratory Depth Respiratory Pattern Blood Pressure 122/70 Blood Pressure Mean 83 Pulse Oximetry 97 Oxygen Delivery Method Sepsis Recent Fever Within 48 Hours Sepsis New/Unexplained Change in Mental Status Sepsis Action Taken by Long-Term Medications Current Medication List: was personally reviewed by me Laboratory Data Attestation: I reviewed the patient's lab results. Result diagrams: 11/29/19 21:07 11/29/19 21:07 Lab Results 11/29/19 11/29/19 11/29/19 Range/Units 21:07 21:07 21:30 WBC 8.91 (4.8-10.8) K/uL RBC 5.10 (4.2-5.4) M/uL Hgb 15.0 (12.0-16.0) g/dL Hct 42.4 (37-47) % MCV 83.1 (80-100) fL MCH 29.4 (25-34) pg MCHC 35.4 (32-36) g/dL RDW Std Deviation 37.3 (36.4-46.3) fL RDW Coeff of Kady 12.3 (11.5-14.5) % Plt Count 281 (130-400) K/uL MPV 10.8 H (7.4-10.4) fL Immature Gran % (Auto) 0.1 % Neut % (Auto) 77.9 % Lymph % (Auto) 17.1 % [place] % (Auto) 4.6 % Eos % (Auto) 0.1 % Baso % (Auto) 0.2 % Neut # (Auto) 6.94 H (1.4-6.5) K/uL Lymph # (Auto) 1.52 (1.2-3.4) K/uL [place] # (Auto) 0.41 (0.11-0.59) K/uL Eos # (Auto) 0.01 (0-0.5) K/uL Baso # (Auto) 0.02 (0-0.2) K/uL Immature Gran # (Auto) 0.01 (0.00-0.02) K/uL Sodium 142 (136-145) mmol/L Potassium 3.4 L (3.5-5.1) mmol/L Chloride 107 (98-107) mmol/L Carbon Dioxide 21 (21-32) mmol/L Anion Gap 13.0 H (3-11) BUN 8 (7-18) mg/dl Creatinine 0.87 (0.6-1.2) mg/dl Est Cr Clr Drug Dosing 73.5 ml/min Est GFR ( Amer) 110.4 Est GFR (Non-Af Amer) 95.2 BUN/Creatinine Ratio 8.7 L (10-20) Glucose 110 H (70-99) mg/dl Calcium 10.2 H (8.5-10.1) mg/dl Total Bilirubin 0.4 (0.2-1) mg/dl AST 19 (15-37) U/L ALT 25 (12-78) U/L Alkaline Phosphatase 57 (45-117) U/L Total Protein 8.0 (6.4-8.2) gm/dl Albumin 4.1 (3.4-5.0) gm/dl Globulin 3.9 (2.5-4.0) gm/dl Albumin/Globulin Ratio 1.0 (0.9-2) Lipase 83 (73-393) U/L Urine Color Yellow Urine Appearance Clear (Clear) Urine pH 8.0 H (4.5-7.5) Ur Specific [address] 1.023 (1.000-1.030) Urine Protein Negative (Negative) Urine Glucose (UA) Negative (Negative) Urine Ketones 4+ H (Negative) Urine Blood Negative (Negative) Urine Nitrite Negative (Negative) Urine Bilirubin Negative (Negative) Urine Urobilinogen Negative (Negative) Ur Leukocyte Esterase Trace H (Negative) Urine WBC (Auto) 5-10 H (0-5) /hpf Urine RBC (Auto) 0-4 (0-4) /hpf U Hyaline Cast (Auto) 1-5 (0-5) /lpf U Epithel Cells (Auto) >30 H (0-5) /lpf Urine Bacteria (Auto) Negative (Negative) Urine Test (Negative) 11/29/19 Range/Units 21:30 WBC (4.8-10.8) K/uL RBC (4.2-5.4) M/uL Hgb (12.0-16.0) g/dL Hct (37-47) % MCV (80-100) fL MCH (25-34) pg MCHC (32-36) g/dL RDW Std Deviation (36.4-46.3) fL RDW Coeff of Kady (11.5-14.5) % Plt Count (130-400) K/uL MPV (7.4-10.4) fL Immature Gran % (Auto) % Neut % (Auto) % Lymph % (Auto) % [place] % (Auto) % Eos % (Auto) % Baso % (Auto) % Neut # (Auto) (1.4-6.5) K/uL Lymph # (Auto) (1.2-3.4) K/uL [place] # (Auto) (0.11-0.59) K/uL Eos # (Auto) (0-0.5) K/uL Baso # (Auto) (0-0.2) K/uL Immature Gran # (Auto) (0.00-0.02) K/uL Sodium (136-145) mmol/L Potassium (3.5-5.1) mmol/L Chloride (98-107) mmol/L Carbon Dioxide (21-32) mmol/L Anion Gap (3-11) BUN (7-18) mg/dl Creatinine (0.6-1.2) mg/dl Est Cr Clr Drug Dosing ml/min Est GFR ( Amer) Est GFR (Non-Af Amer) BUN/Creatinine Ratio (10-20) Glucose (70-99) mg/dl Calcium (8.5-10.1) mg/dl Total Bilirubin (0.2-1) mg/dl AST (15-37) U/L ALT (12-78) U/L Alkaline Phosphatase (45-117) U/L Total Protein (6.4-8.2) gm/dl Albumin (3.4-5.0) gm/dl Globulin (2.5-4.0) gm/dl Albumin/Globulin Ratio (0.9-2) Lipase (73-393) U/L Urine Color Urine Appearance (Clear) Urine pH (4.5-7.5) Ur Specific [address] (1.000-1.030) Urine Protein (Negative) Urine Glucose (UA) (Negative) Urine Ketones (Negative) Urine Blood (Negative) Urine Nitrite (Negative) Urine Bilirubin (Negative) Urine Urobilinogen (Negative) Ur Leukocyte Esterase (Negative) Urine WBC (Auto) (0-5) /hpf Urine RBC (Auto) (0-4) /hpf U Hyaline Cast (Auto) (0-5) /lpf U Epithel Cells (Auto) (0-5) /lpf Urine Bacteria (Auto) (Negative) Urine Test Negative (Negative) Administered Medications Discontinued Medications Diphenhydramine HCl (Diphenhydramine Hcl 50 Mg/Ml Vial) 25 mg IV NOW STA Stop: 11/29/19 21:04 Last Admin: 11/29/19 21:30 Dose: 25 mg Documented by: [id number] Diphenhydramine HCl (Diphenhydramine Hcl 50 Mg/Ml Vial) 50 mg IV NOW STA Stop: 11/29/19 21:15 Last Admin: 11/29/19 22:30 Dose: Not Given Documented by: [id number] Sodium Chloride (Nss 1000ml) 1,000 mls @ 999 mls/hr IV .Q1H1M ONE Stop: 11/29/19 22:03 Last Infusion: 11/29/19 22:30 Dose: 0 mls/hr Documented by: [id number] Admin: 11/29/19 21:29 Dose: 999 mls/hr Documented by: [id number] Prochlorperazine (Compazine) 2 mls @ 1 mls/min IV ONE ONE Stop: 11/29/19 22:10 Last Admin: 11/29/19 22:35 Dose: 1 mls/min Documented by: [id number] Sodium Chloride (Nss 1000ml) 1,000 mls @ 999 mls/hr IV .Q1H1M ONE Stop: 11/29/19 23:56 Last Infusion: 11/30/19 00:40 Dose: 0 mls/hr Documented by: [id number] Admin: 11/29/19 23:29 Dose: 999 mls/hr Documented by: [id number] Promethazine HCl (Phenergan) 12.5 mg in 50.5 mls @ 202 mls/hr IV NOW STA Stop: 11/29/19 23:26 Last Infusion: 11/29/19 23:45 Dose: 0 mls/hr Documented by: [id number] Admin: 11/29/19 23:27 Dose: 202 mls/hr Documented by: [id number] Fosaprepitant 115 mg/ Sodium (Chloride) 111.2 mls @ 450 mls/hr IV ONE ONE Stop: 11/30/19 00:17 Last Infusion: 11/30/19 01:59 Dose: 0 mls/hr Documented by: [id number] Admin: 11/30/19 01:26 Dose: 450 mls/hr Documented by: [id number] Metoclopramide HCl (Metoclopramide Hcl Inj 5 Mg/Ml 2 Ml Vial) 10 mg IV NOW STA Stop: 11/29/19 21:04 Last Admin: 11/29/19 21:30 Dose: 10 mg Documented by: [id number] Discharge Plan Visit Data Chief Complaint: Vomiting Stated Complaint: VOMITING ED Provider: Marcial Pina Discharge Problem: Vomiting, Dehydration, Upper abdominal pain, Hypokalemia Forms Stand Alone Forms: [email or web address] Prescriptions Prescriptions: No Action prochlorperazine maleate 10 mg tablet 10 mg PO Q6 PRN (Reason: Nausea And Vomiting) RF: 0 ondansetron 4 mg tablet,disintegrating 4 mg PO UD PRN (Reason: Nausea And Vomiting) RF: 0 sumatriptan succinate 6 mg/0.5 mL pen injector 6 mg SUBCUT BID PRN (Reason: Migraine Headache) RF: 0 clonazepam 0.5 mg tablet,disintegrating 0.5 mg PO BID PRN (Reason: cyclic vomiting) RF: 0 norethindrone-e.estradiol-iron [Blisovi 24 Fe] 1 mg-20 mcg (24)/75 mg (4) tablet 1 tab PO DAILY RF: 0 diphenhydramine HCl 25 mg Capsule 50 mg PO Q6H PRN (Reason: nausea/vomiting) Qty: 0 RF: 0 cyproheptadine 4 mg Tablet 4 mg PO HS Qty: 30 RF: 0
[2019-11-29 21:42] LABS: Basophils # (auto) 0.02 K/uL (0-0.2); Basophils % (auto) 0.2 %; Eosinophils # (auto) 0.01 K/uL (0-0.5); Eosinophils % (auto) 0.1 %; Hematocrit (blood only) 42.4 % (37-47); Immature Granulocytes # (auto) 0.01 K/uL (0.00-0.02); Immature Granulocytes % (auto) 0.1 %; Lymphocytes # (auto) 1.52 K/uL (1.2-3.4); Lymphocytes % (auto) 17.1 %; Mean Corpuscular Hemoglobin 29.4 pg (25-34); Mean Corpuscular Hgb Conc 35.4 g/dL (32-36); Mean Corpuscular Volume 83.1 fL (80-100); Mean Platelet Volume 10.8 fL (7.4-10.4); Monocytes # (auto) 0.41 K/uL (0.11-0.59); Monocytes % (auto) 4.6 %; Neutrophils # (auto) 6.94 K/uL (1.4-6.5); Neutrophils % (auto) 77.9 %; Platelet Count 281 K/uL (130-400); RDW Coefficient of Variation 12.3 % (11.5-14.5); RDW Standard Deviation 37.3 fL (36.4-46.3); White Blood Count 8.91 K/uL (4.8-10.8)
[2019-11-29 21:50] LABS: Pregnancy Test, Urine Negative (Negative)
[2019-11-29 21:57] LABS: Albumin Level 4.1 gm/dl (3.4-5.0); BUN Creatinine Ratio 8.7 (10-20); Calcium 10.2 mg/dl (8.5-10.1); Creatinine Clr Calc Pharmacy 73.5 ml/min; Est GFR (African American) 110.4; Est GFR (Non-African American) 95.2; Potassium 3.4 mmol/L (3.5-5.1)
[2019-11-29 22:01] LABS: Bilirubin,Total 0.4 mg/dl (0.2-1); Globulin 3.9 gm/dl (2.5-4.0)
[2019-11-29] MEDS ORDERED: PROCHLORPERAZINE 2 ML IV ONE (22:09)
[2019-11-29 22:22] LABS: Appearance Urine Clear (Clear); Bacteria Urine Automated Negative (Negative); Bilirubin Urine Negative (Negative); Blood Urine Negative (Negative); Color Urine Yellow; Epithelial Cell Urine Auto >30 /lpf (0-5); Glucose Urine UA Negative (Negative); Ketones Urine 4+ (Negative); Leukocyte Esterase Urine Trace (Negative); Nitrite Urine Negative (Negative); Protein Urine Negative (Negative); RBC Urine Automated 0-4 /hpf (0-4); Specific Gravity Urine 1.023 (1.000-1.030); Urobilinogen Urine Negative (Negative)
[2019-11-29] MEDS ORDERED: PROMETHAZINE 12.5 MG/50.5 ML BAG IV STA (23:12)
[2019-11-30] MEDS ORDERED: FOSAPREPITANT DIMEGLUMINE 115 MG in 0.9 % SODIUM CHLORIDE 111.2 ML IV ONE (00:03)
--- NOTE | 2019-11-30 02:13 | History & Physical Report ---
Date of Service November 30, 2019 Assessment & Plan (1) Cyclic vomiting syndrome: 19yo C female with cyclic vomiting syndrome presents with nausea/vomiting/diarrhea and abdominal pain x 1 day. Symptoms similar to prior episodes of cyclic vomiting. Stress is a significant trigger for her symptoms. Patient feels minimally improved after medications received in ER. Has not yet tolerated PO challenge. Abdominal exam benign. -Observation to medical floor -Will give banana bag x 1 -Zofran 4mg IV q 6 hours as needed -Benadryl 50mg po q 6 hours as needed -Compazine 10mg po q 6 hours as needed -Sumatriptan 6mg BID as needed - patient took two doses of this medication prior to arrival. May receive dose again later this AM -Continue home Clonazepam -Continue home cyproheptadine Encouraged patient to keep a journal of symptoms to identify possible triggers Present on Admission?: Yes (2) Hypokalemia: Mild, K=3.4 -KCl 40Meq PO F/E/N - 2L NSS in ER, will give banana bag x 500mL as above, K repletion as above, clear liquids as tolerated, advance as tolerated Ppx - low risk for DVT, encourage ambulation Code - Full Dispo - Observation to medical floor Present on Admission?: Yes History of Present Illness Chief Complaint: nausea/vomiting Primary Care Provider: NO PCP Whitney Adams is a 19yo female with history of cyclic vomiting. She presents today with intractable nausea/vomiting and abdominal pain. Symptoms began yesterday afternoon after eating [employer]. She was recently admitted wtih similar symptoms and states that her nausea never completely resolved since being admitted. She denies fever/chills/CP/cough/SOB. She denies dysuria/rash. Has had 5 episodes of watery diarrhea Approximately 15 episodes of vomiting - now bilious PO intolerance since yesterday Took Imitrex x 2 doses at home - 17:30 and 19:30 Patient [place] with GI and [place]rology [place] ER Course: Benadryl 25mg, 50mg IV, Fosaprepitant 115mg, NSS x 2L, Phenergan 12.5mg, Compazine, Reglan Allergies Allergy/AdvReac Type Severity Reaction Status Date / Time No Known Allergies Allergy Verified 11/29/19 23:09 Home Medications Home Medications Medication Instructions Recorded Confirmed Type cyproheptadine 4 mg PO HS #30 tab 03/04/20 09/11/20 Rx clonazepam 0.5 mg PO BID PRN 11/12/19 11/29/19 History norethindrone-e.estradiol-iron 1 tab PO DAILY 11/12/19 11/29/19 History [Blisovi 24 Fe] ondansetron 4 mg PO UD PRN 11/12/19 11/29/19 History prochlorperazine maleate 10 mg PO Q6 PRN 11/12/19 11/29/19 History sumatriptan succinate 6 mg SUBCUT BID PRN 11/12/19 11/29/19 History diphenhydramine HCl 50 mg PO Q6H PRN #0 cap 11/14/19 11/29/19 Rx Past Med/Surg History Medical History (Updated 11/30/19 @ 02:08 by Cristina Noe DO) Cyclic vomiting syndrome History of trigger finger Family History (Updated 11/30/19 @ 02:07 by Cristina Noe DO) Other Diabetes Heart disease Social History Smoking Status: Never smoker Hx Alcohol Use: Yes Hx Substance Use: No Preferred Language: [place] Communication Ability: Effective Wicker Worker Required: No Beliefs That Will Affect Care: None Feels Safe at Home: Yes Review of Systems Review of Systems: All systems reviewed & are unremarkable except as noted in HPI & below Physical Exam Physical Exam: General: patient resting comfortably, NAD, ill in appearance, AA&O x 4 Skin: warm, dry, intact, no rashes or lesions HEENT: NC/AT, PERRL, EOMI, anicteric sclera, conjunctiva without injection, external ear normal to inspection and nontender, nares patent, moist mucus membranes, dentition intact, no oropharyngeal lesions, neck supple, trachea midline, no LAD, no thyromegaly, no JVD Heart: +S1/S2, regular, tachycardic, no m/r/g Lungs: equal air entry bilaterally, no rales/rhonchi/wheezes Abd: +BS, soft, NT/ND, no masses/organomegaly/ascites Ext: warm, 2+ pulses in UE/LE bilaterally, no clubbing/cyanosis or edema Neuro: nonfocal, patient AA&O x 4, speech intact, no facial droop, moving all extremities on command with equal strength 5/5 Results & Data Results & Data ([facility]) Vital Signs (Past 12 Hours) Vital Signs Temp Pulse Resp BP Pulse Ox 11/30/19 01:30 86 13 122/70 97 11/30/19 01:00 80 20 123/72 98 11/30/19 00:30 82 18 125/78 98 11/30/19 00:00 102 H 17 126/87 99 11/29/19 23:30 94 H 17 117/78 99 11/29/19 23:01 92 H 19 132/93 94 11/29/19 22:35 101 H 16 120/67 100 11/29/19 22:30 82 15 100 11/29/19 20:50 36.9 C 94 H 17 121/69 99 Laboratory Results Lab Results 11/29/19 11/29/19 11/29/19 Range/Units 21:07 21:07 21:30 WBC 8.91 (4.8-10.8) K/uL RBC 5.10 (4.2-5.4) M/uL Hgb 15.0 (12.0-16.0) g/dL Hct 42.4 (37-47) % MCV 83.1 (80-100) fL MCH 29.4 (25-34) pg MCHC 35.4 (32-36) g/dL RDW Std Deviation 37.3 (36.4-46.3) fL RDW Coeff of Kady 12.3 (11.5-14.5) % Plt Count 281 (130-400) K/uL MPV 10.8 H (7.4-10.4) fL Immature Gran % (Auto) 0.1 % Neut % (Auto) 77.9 % Lymph % (Auto) 17.1 % [place] % (Auto) 4.6 % Eos % (Auto) 0.1 % Baso % (Auto) 0.2 % Neut # (Auto) 6.94 H (1.4-6.5) K/uL Lymph # (Auto) 1.52 (1.2-3.4) K/uL [place] # (Auto) 0.41 (0.11-0.59) K/uL Eos # (Auto) 0.01 (0-0.5) K/uL Baso # (Auto) 0.02 (0-0.2) K/uL Immature Gran # (Auto) 0.01 (0.00-0.02) K/uL Sodium 142 (136-145) mmol/L Potassium 3.4 L (3.5-5.1) mmol/L Chloride 107 (98-107) mmol/L Carbon Dioxide 21 (21-32) mmol/L Anion Gap 13.0 H (3-11) BUN 8 (7-18) mg/dl Creatinine 0.87 (0.6-1.2) mg/dl Est Cr Clr Drug Dosing 73.5 ml/min Est GFR ( Amer) 110.4 Est GFR (Non-Af Amer) 95.2 BUN/Creatinine Ratio 8.7 L (10-20) Glucose 110 H (70-99) mg/dl Calcium 10.2 H (8.5-10.1) mg/dl Total Bilirubin 0.4 (0.2-1) mg/dl AST 19 (15-37) U/L ALT 25 (12-78) U/L Alkaline Phosphatase 57 (45-117) U/L Total Protein 8.0 (6.4-8.2) gm/dl Albumin 4.1 (3.4-5.0) gm/dl Globulin 3.9 (2.5-4.0) gm/dl Albumin/Globulin Ratio 1.0 (0.9-2) Lipase 83 (73-393) U/L Urine Color Yellow Urine Appearance Clear (Clear) Urine pH 8.0 H (4.5-7.5) Ur Specific [place] 1.023 (1.000-1.030) Urine Protein Negative (Negative) Urine Glucose (UA) Negative (Negative) Urine Ketones 4+ H (Negative) Urine Blood Negative (Negative) Urine Nitrite Negative (Negative) Urine Bilirubin Negative (Negative) Urine Urobilinogen Negative (Negative) Ur Leukocyte Esterase Trace H (Negative) Urine WBC (Auto) 5-10 H (0-5) /hpf Urine RBC (Auto) 0-4 (0-4) /hpf U Hyaline Cast (Auto) 1-5 (0-5) /lpf U Epithel Cells (Auto) >30 H (0-5) /lpf Urine Bacteria (Auto) Negative (Negative) Urine Test (Negative) 11/29/19 Range/Units 21:30 WBC (4.8-10.8) K/uL RBC (4.2-5.4) M/uL Hgb (12.0-16.0) g/dL Hct (37-47) % MCV (80-100) fL MCH (25-34) pg MCHC (32-36) g/dL RDW Std Deviation (36.4-46.3) fL RDW Coeff of Kady (11.5-14.5) % Plt Count (130-400) K/uL MPV (7.4-10.4) fL Immature Gran % (Auto) % Neut % (Auto) % Lymph % (Auto) % [place] % (Auto) % Eos % (Auto) % Baso % (Auto) % Neut # (Auto) (1.4-6.5) K/uL Lymph # (Auto) (1.2-3.4) K/uL [place] # (Auto) (0.11-0.59) K/uL Eos # (Auto) (0-0.5) K/uL Baso # (Auto) (0-0.2) K/uL Immature Gran # (Auto) (0.00-0.02) K/uL Sodium (136-145) mmol/L Potassium (3.5-5.1) mmol/L Chloride (98-107) mmol/L Carbon Dioxide (21-32) mmol/L Anion Gap (3-11) BUN (7-18) mg/dl Creatinine (0.6-1.2) mg/dl Est Cr Clr Drug Dosing ml/min Est GFR ( Amer) Est GFR (Non-Af Amer) BUN/Creatinine Ratio (10-20) Glucose (70-99) mg/dl Calcium (8.5-10.1) mg/dl Total Bilirubin (0.2-1) mg/dl AST (15-37) U/L ALT (12-78) U/L Alkaline Phosphatase (45-117) U/L Total Protein (6.4-8.2) gm/dl Albumin (3.4-5.0) gm/dl Globulin (2.5-4.0) gm/dl Albumin/Globulin Ratio (0.9-2) Lipase (73-393) U/L Urine Color Urine Appearance (Clear) Urine pH (4.5-7.5) Ur Specific Likely (1.000-1.030) Urine Protein (Negative) Urine Glucose (UA) (Negative) Urine Ketones (Negative) Urine Blood (Negative) Urine Nitrite (Negative) Urine Bilirubin (Negative) Urine Urobilinogen (Negative) Ur Leukocyte Esterase (Negative) Urine WBC (Auto) (0-5) /hpf Urine RBC (Auto) (0-4) /hpf U Hyaline Cast (Auto) (0-5) /lpf U Epithel Cells (Auto) (0-5) /lpf Urine Bacteria (Auto) (Negative) Urine Test Negative (Negative) Code Status & VTE Plan Code Status Full PG Care Time/CCT Total # of Minutes Spent Total Time Spent with Patient: Total time spent is greater than 50% in coordination of care (as documented) at patient's floor/unit and/or counseling patient: Coding Level of Care Code 44984 OBS Care - Level 2 Diagnoses Cyclic vomiting syndrome R11.15 Hypokalemia E87.6
[2019-11-30] MEDS ORDERED: PROCHLORPERAZINE MALEATE 10 MG TAB PO PRN (02:38)
[2019-11-30] MEDS ORDERED: POTASSIUM CHLORIDE 20 MEQ/15 ML UDC PO STA (02:38)
[2019-11-30] MEDS ORDERED: clonazePAM 0.5 MG TAB PO PRN (02:38)
[2019-11-30] MEDS ORDERED: MULTI-VITAMIN INFUSION 10 ML, THIAMINE HCL 100 MG, FOLIC ACID 1 MG in SODIUM CHLORIDE 0... IV ONE (02:38)
[2019-11-30] MEDS ORDERED: ACETAMINOPHEN 325 MG TAB PO PRN (02:38)
[2019-11-30] MEDS ORDERED: ONDANSETRON INJ 2 MG/ML 2 ML VIAL IV PRN (02:38)
[2019-11-30] MEDS ORDERED: LORazepam 0.5 MG/1 ML VIAL IV PRN (04:05)
[2019-11-30] MEDS ORDERED: DiphenhydrAMINE HCL 50 MG/ML VIAL IV PRN (04:06)
[2019-11-30] MEDS ORDERED: PROCHLORPERAZINE 5 MG in SYRINGE 4 ML IV PRN (04:07)
[2019-11-30] MEDS ORDERED: NSS + 20MEQ KCL 20 MEQ/1,000 ML BAG IV SCH (04:15)
[2019-11-30] MEDS ORDERED: SUMAtriptan succinate 6 MG/0.5 ML VIAL SQ PRN (07:30)
--- NOTE | 2019-11-30 09:20 | Discharge Summary ---
Date of Service November 30, 2019 Admission HPI Per Admitting Provider Whitney Adams is a 19yo female with history of cyclic vomiting. She presents today with intractable nausea/vomiting and abdominal pain. Symptoms began yesterday afternoon after eating [employer]. She was recently admitted wt similar symptoms and states that her nausea never completely resolved since being admitted. She denies fever/chills/CP/cough/SOB. She denies dysuria/rash. Has had 5 episodes of watery diarrhea Approximately 15 episodes of vomiting - now bilious PO intolerance since yesterday Took Imitrex x 2 doses at home - 17:30 and 19:30 Patient [place] with GI and [place]rology [place] ER Course: Benadryl 25mg, 50mg IV, Fosaprepitant 115mg, NSS x 2L, Phenergan 12.5mg, Compazine, Reglan Admission Exam Per Admitting Provider General: patient resting comfortably, NAD, ill in appearance, AA&O x 4 Skin: warm, dry, intact, no rashes or lesions HEENT: NC/AT, PERRL, EOMI, anicteric sclera, conjunctiva without injection, external ear normal to inspection and nontender, nares patent, moist mucus membranes, dentition intact, no oropharyngeal lesions, neck supple, trachea midline, no LAD, no thyromegaly, no JVD Heart: +S1/S2, regular, tachycardic, no m/r/g Lungs: equal air entry bilaterally, no rales/rhonchi/wheezes Abd: +BS, soft, NT/ND, no masses/organomegaly/ascites Ext: warm, 2+ pulses in UE/LE bilaterally, no clubbing/cyanosis or edema Neuro: nonfocal, patient AA&O x 4, speech intact, no facial droop, moving all extremities on command with equal strength 5/5 Principal Diagnosis acute on chronic exacerbation of cyclic vomiting syndrome complicated by dehydration, hypokalemia, and inability to maintain p.o. intake Discharge Exam General: In no acute distress HEENT: Normocephalic atraumatic Neck: Normal to visual inspection Cardiac: Palpated pulses bilaterally symmetrical, appeared to be regular rate and rhythm Respiratory: Symmetrical chest expansion bilaterally, no labored breathing, did not appear to be in respiratory distress GI: Soft nontender nondistended MSK: Moves all extremities Skin: Cool dry and intact Neuro: Alert and oriented Psych: A bit anxious otherwise, cooperative Discharge Data Allergies Allergy/AdvReac Type Severity Reaction Status Date / Time No Known Allergies Allergy Verified 11/29/19 23:09 Consultations 11/30/19 00:02 ED Decision to Admit Stat Hospital Course (1) Cyclic vomiting syndrome: 19-year-old female with a past medical history of cyclic vomiting syndrome and recent admission for exacerbation of it presented on the evening of 11/28 with symptoms of nausea, vomiting, diarrhea, and abdominal pain x1 day. She reported inability to tolerate p.o. intake, reporting stress a significant trigger of her symptoms. She reports she is been extremely stressed out recently dance used to be her outlet however she is been unable to participate since [facility], and has been having anxiety episodes. On admission she was given IV diphenhydramine, metoclopramide, Phenergan, sumatriptan, a banana bag, her electrolytes were repleted and IV hydration. She improved overnight, tolerating full liquid diet at breakfast, and was subsequently discharged. -Recommended the patient look for other anxiety outlets including hiking, and spending time outside -Encouraged patient to keep a journal of symptoms to identify possible triggers -Continue routine outpatient care (2) Hypokalemia: Presented with mild case of hypokalemia to 3.4, repleted as indicated (3) Dehydration: (4) Anxiety: Total Time Total Time Spent Total Time Spent (In Minutes): 34 Discharge Plan Discharge Items Patient Disposition: Home - Self-Care Reason For Visit: CYCLIC VOMITING Discharge Diagnosis: acute on chronic exacerbation of cyclic vomiting syndrome complicated by dehydration, hypokalemia, and inability to maintain p.o. intake Activity: Resume your previous activity Non-emergency contact: Primary Care Provider Call non-emergency contact if: you have any medication questions, your symptoms worsen, your pain is not controlled and your temperature is above 101.5 Follow-up/Referrals: PCP,NEFTALY [Primary Care Provider] - Diet: Regular Addtl Attending Provider Instructions: Care instructions: You were admitted to [facility] for treatment of acute exacerbation of your chronic cyclic vomiting syndrome. In the emergency department you were given IV medication, IV fluids, and electrolytes. You were admitted to the general medical floors for observation and improved overnight. On the day of discharge he tolerated breakfast, and reported significant improvement in her symptoms. Prior to discharge we discussed the cause of your symptoms, he reported it was stress. We discussed with your mother that you had a recent increase in stress due to COVID and that your prior outlet was dancing you have not been able to find an anxiety. We discussed the benefits of exercise, and getting outside. To that extent we recommend that you follow-up with your primary care physician to further discuss strategies to alleviate your anxiety. -Please resume your diet as tolerated, try to avoid heavy foods at least initially -Please follow-up with your primary care provider to discuss anxiety -Please follow-up with your primary care provider to discuss symptom management A discharge summary will be sent to your primary care physician to ensure continuity of care. Please bring this discharge summary with you to your next office appointment so that your provider can review it at that time. Follow-up appointments: - Keep all your follow-up appointments as already scheduled. If you cannot make an appointment, notify your provider. - Please call to request a follow-up appointment with your primary care physician within one week of discharge. Please let us know if you are unable to obtain an appointment Medications: - Your medication list has been reviewed and reconciled upon discharge to ensure accuracy and continuity of care. - You are provided with a list of all your current medications at this time. Please review this list closely and make note of any changes. - Please take all of your medications exactly as prescribed. - Tell your primary care provider if you cannot afford your medications. - Call your primary care provider if you are having any side effects or any other problems. - Call your primary care provider before taking any over the counter medications or supplements, including herbals and vitamins, because some of these may interact with your current medications and/or make your symptoms worse. Symptoms: Please call your primary care provider for symptoms including, but not limited to: fevers (temperatures greater than 100.4), chills, intractable nausea or vomiting, diarrhea, rash, shortness of breath, bleeding, pain, or if you experience any worsening of the symptoms that brought you to the hospital. For EMERGENCY and VERY SERIOUS health-related issues, such as chest pain, shortness of breath, or sudden onset of the symptoms that brought you to the hospital, you may need to call 911 or go directly to the Emergency Room It has been our privilege to take care of you during your hospital stay. And Above All Else Feel Better! Best Wishes, Chato Noe MD PGY2 Resident, Family & Community Medicine [facility] FCM Residency at [facility] [address], [address] : [address], [place] [address] Pending Studies at Discharge: No Stand-Alone Forms: My [facility], Work/School Release (Inpt), Smoking Cessation Medications and DC Order Prescriptions: Continued prochlorperazine maleate 10 mg tablet 10 mg PO Q6 PRN (Reason: Nausea And Vomiting) RF: 0 ondansetron 4 mg tablet,disintegrating 4 mg PO UD PRN (Reason: Nausea And Vomiting) RF: 0 sumatriptan succinate 6 mg/0.5 mL pen injector 6 mg SUBCUT BID PRN (Reason: Migraine Headache) RF: 0 clonazepam 0.5 mg tablet,disintegrating 0.5 mg PO BID PRN (Reason: cyclic vomiting) RF: 0 norethindrone-e.estradiol-iron [Blisovi 24 Fe] 1 mg-20 mcg (24)/75 mg (4) tablet 1 tab PO DAILY RF: 0 diphenhydramine HCl 25 mg Capsule 50 mg PO Q6H PRN (Reason: nausea/vomiting) Qty: 0 RF: 0 cyproheptadine 4 mg Tablet 4 mg PO HS Qty: 30 RF: 0 Discharge Orders: Discharge Order (Routine); Ordered 11/30/19 Ordered By: Chato Noe Admission Data Admit Date/Time: 11/30/19 02:02 Attending Provider: Vipul Ramires Admit Provider: Cristina Noe Primary Care Provider: PCP,NO Other Providers: Cristina Noe Other Interventions: Discharge Summary Assessment (RN) Last Done: 11/30/19 14:41 Supervising Physician Co-Signing Physician Notes Attending attestation Pt seen and examined in concert with Dr. Noe. In agreement with the documented findings as noted in the resident documentation with any exceptions or additions as noted here. Gradually improving nausea/vomiting approaching resolution. Reviewed history - similar to previous inciting events with increased stress from school after recent previous episode of same. Denies etOH (excepting rarely and not recently), substance use or smoking history. Feeling safe at home with good sup port structure. On examination, S1/S2 nl RRR no MCG. CTAB. Abd NT/ND BS+ve Cyclic vomiting syndrome - improved with antiemetics and IV hydration - encourage continued hydration, stress management and follow with primary care Else see resident documentation as noted. Resident Activity Tracking Resident Involvement: Resident Care Provided Care Provided: Adult Hospital Medicine
[2019-11-30] MEDS ORDERED: CYPROHEPTADINE HCL 4 MG TAB PO SCH (21:00)
== END 2019-11-30 15:17 | disposition home or self-care (01) ==
LOC: 3N 20:34 → ED 20:34 → SUATTDRO 11-30 02:02 → 3N 11-30 02:19

== ENCOUNTER 2019-12-06 00:02 | Observation (INO) ==
[2019-12-06] MEDS ORDERED: LORazepam 0.5 MG/1 ML VIAL IV STA (00:31)
[2019-12-06] MEDS ORDERED: METOCLOPRAMIDE HCL INJ 5 MG/ML 2 ML VIAL IV STA (00:31)
[2019-12-06] MEDS ORDERED: SODIUM CHLORIDE 0.9% 1000ML 1,000 ML IV ONE ×2 (00:31→02:34)
[2019-12-06 01:09] LABS: Basophils # (auto) 0.03 K/uL (0-0.2); Basophils % (auto) 0.3 %; Eosinophils # (auto) 0.05 K/uL (0-0.5); Eosinophils % (auto) 0.6 %; Hematocrit (blood only) 46.9 % (37-47); Hemoglobin 16.7 g/dL (12.0-16.0); Immature Granulocytes # (auto) 0.02 K/uL (0.00-0.02); Immature Granulocytes % (auto) 0.2 %; Lymphocytes # (auto) 2.33 K/uL (1.2-3.4); Lymphocytes % (auto) 26.9 %; Mean Corpuscular Hemoglobin 29.6 pg (25-34); Mean Corpuscular Hgb Conc 35.6 g/dL (32-36); Mean Platelet Volume 10.9 fL (7.4-10.4); Monocytes # (auto) 0.38 K/uL (0.11-0.59); Monocytes % (auto) 4.4 %; Neutrophils # (auto) 5.86 K/uL (1.4-6.5); Neutrophils % (auto) 67.6 %; Platelet Count 309 K/uL (130-400); RDW Coefficient of Variation 12.5 % (11.5-14.5); RDW Standard Deviation 37.3 fL (36.4-46.3); Red Blood Count 5.65 M/uL (4.2-5.4); White Blood Count 8.67 K/uL (4.8-10.8)
[2019-12-06 01:27] LABS: Albumin Level 4.8 gm/dl (3.4-5.0); BUN Creatinine Ratio 9.5 (10-20); Calcium 10.4 mg/dl (8.5-10.1); Creatinine Clr Calc Pharmacy 68.9 ml/min; Est GFR (African American) 113.5; Est GFR (Non-African American) 97.9
[2019-12-06 01:29] LABS: Albumin Globulin Ratio 1.1 (0.9-2); Bilirubin,Total 0.6 mg/dl (0.2-1); Globulin 4.3 gm/dl (2.5-4.0); Total Protein 9.1 gm/dl (6.4-8.2)
--- NOTE | 2019-12-06 02:05 | Emergency Department Note ---
Impression & Plan Cyclical vomiting, intractable, Hypokalemia ED Provider Note NAME: BISI FLETCHER AGE: 19 SEX: F ARRIVES VIA: Walk-In INFORMANT: [Patient] ED PROVIDER(S): Pat Banuelos DO CHIEF COMPLAINT: Vomiting and diarrhea PLAN: [facility] Fair MEDICAL DECISION MAKING: This is a 19-year-old female patient with a history of cyclic vomiting syndrome who presents to the emergency department with a 3-hour history of vomiting. The patient has required admission to the hospital twice over the past 3 weeks for episodes of cyclic vomiting. She became more concerned tonight because she also had associated diarrhea. The patient has had an extensive work-up by gastroenterology and neurology for cyclic vomiting syndrome [place] hometown. The patient explains that she thought she was doing okay today until after she ate the macaroni and cheese for dinner and then developed menstrual cramps with associated nausea that caused her to vomit. After quite some time here in the emergency department and receiving IV crystalloid therapy and IV antiemetics, the patient continues to vomit bile and therefore will require inpatient care. Triage Nursing notes reviewed and agree them. [Prior medical records reviewed] Vital Signs: reviewed and remarkable for tachycardia Differential diagnosis: Dehydration, infectious diarrhea, hypokalemia, exacerbation of cyclic vomiting syndrome ER treatment provided: IV normal saline, IV Reglan, IV Ativan Diagnostics interpreted by me: Cardiac Monitoring: Sinus tachycardia at 112 Laboratory studies: [See below] HPI: This is a 19-year-old female patient who presents to the emergency department for evaluation of vomiting and diarrhea. The patient has a history of cyclic vomiting syndrome for the past 4 years. She has been having episodes of vomiting and diarrhea over the past 3 weeks intermittently. She describes a sense of urgency to move her bowels and urinate. The patient explains that she has been admitted twice over the past 3 weeks. With regards to this episode, the patient states that she was feeling okay throughout the day today until she developed menstrual cramps and then became nauseated. Around 9:30 PM this evening, she began to vomit and then could not stop. The patient describes having cereal for breakfast this morning and then macaroni and cheese for dinner tonight but otherwise has had a decreased appetite over the past couple of days. The patient takes a very regular regimen of medications for her cyclic vomiting syndrome which include cyproheptadine, Zo roxy, Imitrex, Compazine and Benadryl. The patient has not had an episode of chronic vomiting like this since 6 months ago. ROS: See above HPI for pertinent positives & negatives. A total of [10] systems reviewed and were otherwise negative. PAST MEDICAL HISTORY:Cyclic vomiting syndrome PAST SURGICAL HISTORY:[See Below] FAMILY HISTORY:[See Below] SOCIAL HISTORY:The patient is a senior at [employer]; she denies any marijuana use. HOME MEDICATIONS:See list ALLERGIES:None VITALS:[See Below] PHYSICAL EXAMINATION: HEENT: Head - normocephalic and atraumatic Pupils are equal, round, and reactive to light. Extraocular eye muscles are intact, and sclera are anicteric. Nose - moist nasal mucosa without discharge. Mouth - moist buccal mucosa. Oropharynx is nonerythematous and there is no tonsillar exudate or edema noted. Neck: Supple; no cervical lymphadenopathy or thyromegaly Heart: Regular rate and rhythm. There is a normal S1 and S2 with no murmurs, clicks, or gallops appreciated. Lungs: Clear to auscultation bilaterally with no wheezes, rales, or rhonchi. Abdomen: Soft, completely nontender, nondistended, with good bowel sounds. There are no palpable pulsatile masses or hepatosplenomegaly. There is no guarding, rigidity, or rebound noted. Extremities: No evidence of cyanosis, clubbing, or edema. There are easily palpable peripheral pulses. Skin: Pale, warm and dry with good turgor and no rashes. ED COURSE: Times/Reassessments: 0020: The patient was evaluated in room A2. A complete history and physical was performed. An order was placed for continuous cardiac monitoring. The patient was in a sinus tachycardia at a rate of 114. An IV lock was initiated and labs were drawn as above. The patient was bolused with 1 L of normal saline and given 5 mg of IV Reglan and 0.5 mg of IV Ativan. The patient had some improvement in her symptoms. 0145: The patient is resting comfortably at this time and no longer vomiting. 0225: The patient tried to sip some water and started to vomit again and is now vomiting bile. She was given a second dose of 5 mg of IV Reglan. The patient again had persistent vomiting and was given 12.5 mg of IV Phenergan along with a second liter of normal saline solution. She did rest for a short period of time but then continued to complain of nausea. She was finally able to give stool specimen. This will go for Gram stain and culture. 0540: I reevaluated the patient at this time. She does not think that she will be able to go home as she still feels so nauseated and continues to vomit bile. The patient was started on a normal saline drip. I discussed the case with the [facility] hospitalist and they will evaluate for further management. Pat Banuelos DO Past Med/Surg History Medical History (Updated 12/06/19 @ 06:23 by Pat Banuelos DO) Cyclic vomiting syndrome History of trigger finger Family History (Updated 11/30/19 @ 02:07 by Cristina Noe DO) Other Diabetes Heart disease Social History (Updated 11/30/19 @ 02:07 by Marcial Pina MD) Smoking Status: Never smoker Hx Alcohol Use: Yes Alcohol type: wine Hx Substance Use: No Preferred Language: Welsh Communication Ability: Effective Solution Analyst Required: No Beliefs That Will Affect Care: None Current Living Situation: Other Current Living Situation Comment: apartment with one roommate Feels Safe at Home: Yes Allergies Allergies Allergy/AdvReac Type Severity Reaction Status Date / Time No Known Allergies Allergy Verified 12/06/19 00:59 Home Meds Home Medications Medication Instructions Recorded Confirmed clonazepam 0.5 mg PO BID PRN 11/12/19 12/06/19 norethindrone-e.estradiol-iron 1 tab PO DAILY 11/12/19 12/06/19 [Blisovi 24 Fe] ondansetron 4 mg PO UD PRN 11/12/19 12/06/19 prochlorperazine maleate 10 mg PO Q6 PRN 11/12/19 12/06/19 sumatriptan succinate 6 mg SUBCUT BID PRN 11/12/19 12/06/19 Previous Rx's Medication Instructions Recorded cyproheptadine 4 mg PO HS #30 tab 05/22/19 diphenhydramine HCl 50 mg PO Q6H PRN #0 cap 11/14/19 Results & Data (ED) Vital Signs Vital Signs - 24 hr 12/06/19 00:07 12/06/19 00:34 12/06/19 01:03 Temperature 36.6 C Temperature Source Oral Pulse Rate 104 H 72 66 Pulse Rate from SpO2 Sensor 67 Respiratory Rate 22 22 15 Respiratory Effort / Characteristics Non-Labored Spontaneous Respiratory Depth Normal Respiratory Pattern Regular Blood Pressure 125/90 113/87 Blood Pressure Mean 101 90 Blood Pressure Position Sitting Pulse Oximetry 98 100 100 Oxygen Delivery Method Room Air Room Air Sepsis Recent Fever Within 48 Hours No Sepsis New/Unexplained Change in Mental Status N/A Sepsis Action Taken by Nursing No Action Required 12/06/19 01:30 12/06/19 02:00 12/06/19 03:00 Temperature Temperature Source Pulse Rate 72 91 H 74 Pulse Rate from SpO2 Sensor 71 92 H 74 Respiratory Rate 14 16 13 Respiratory Effort / Characteristics Respiratory Depth Respiratory Pattern Blood Pressure 123/80 120/79 121/81 Blood Pressure Mean 98 84 87 Blood Pressure Position Pulse Oximetry 100 100 100 Oxygen Delivery Method Sepsis Recent Fever Within 48 Hours Sepsis New/Unexplained Change in Mental Status Sepsis Action Taken by Nursing 12/06/19 04:33 12/06/19 05:00 Temperature Temperature Source Pulse Rate 83 91 H Pulse Rate from SpO2 Sensor 77 91 H Respiratory Rate 17 17 Respiratory Effort / Characteristics Respiratory Depth Respiratory Pattern Blood Pressure 121/87 130/86 Blood Pressure Mean 97 101 Blood Pressure Position Pulse Oximetry 100 99 Oxygen Delivery Method Sepsis Recent Fever Within 48 Hours Sepsis New/Unexplained Change in Mental Status Sepsis Action Taken by Nursing Laboratory Data Result diagrams: 12/06/19 00:50 12/06/19 00:50 Lab Results 12/06/19 12/06/19 12/06/19 Range/Units 00:50 00:50 02:10 WBC 8.67 (4.8-10.8) K/uL RBC 5.65 H (4.2-5.4) M/uL Hgb 16.7 H (12.0-16.0) g/dL Hct 46.9 (37-47) % MCV 83.0 (80-100) fL MCH 29.6 (25-34) pg MCHC 35.6 (32-36) g/dL RDW Std Deviation 37.3 (36.4-46.3) fL RDW Coeff of Kady 12.5 (11.5-14.5) % Plt Count 309 (130-400) K/uL MPV 10.9 H (7.4-10.4) fL Immature Gran % (Auto) 0.2 % Neut % (Auto) 67.6 % Lymph % (Auto) 26.9 % Gila % (Auto) 4.4 % Eos % (Auto) 0.6 % Baso % (Auto) 0.3 % Neut # (Auto) 5.86 (1.4-6.5) K/uL Lymph # (Auto) 2.33 (1.2-3.4) K/uL Gila # (Auto) 0.38 (0.11-0.59) K/uL Eos # (Auto) 0.05 (0-0.5) K/uL Baso # (Auto) 0.03 (0-0.2) K/uL Immature Gran # (Auto) 0.02 (0.00-0.02) K/uL Sodium 138 (136-145) mmol/L Potassium 3.0 L (3.5-5.1) mmol/L Chloride 104 (98-107) mmol/L Carbon Dioxide 21 (21-32) mmol/L Anion Gap 13.0 H (3-11) BUN 8 (7-18) mg/dl Creatinine 0.85 (0.6-1.2) mg/dl Est Cr Clr Drug Dosing 68.9 ml/min Est GFR ( Amer) 113.5 Est GFR (Non-Af Amer) 97.9 BUN/Creatinine Ratio 9.5 L (10-20) Glucose 99 (70-99) mg/dl Calcium 10.4 H (8.5-10.1) mg/dl Total Bilirubin 0.6 (0.2-1) mg/dl AST 20 (15-37) U/L ALT 28 (12-78) U/L Alkaline Phosphatase 67 (45-117) U/L Total Protein 9.1 H (6.4-8.2) gm/dl Albumin 4.8 (3.4-5.0) gm/dl Globulin 4.3 H (2.5-4.0) gm/dl Albumin/Globulin Ratio 1.1 (0.9-2) Lipase 151 (73-393) U/L Urine Color Yellow Urine Appearance Clear (Clear) Urine pH 6.5 (4.5-7.5) Ur Specific Duff 1.019 (1.000-1.030) Urine Protein Negative (Negative) Urine Glucose (UA) Negative (Negative) Urine Ketones 4+ H (Negative) Urine Blood 2+ H (Negative) Urine Nitrite Negative (Negative) Urine Bilirubin Negative (Negative) Urine Urobilinogen Negative (Negative) Ur Leukocyte Esterase Negative (Negative) Urine WBC (Auto) 1-5 (0-5) /hpf Urine RBC (Auto) 10-30 H (0-4) /hpf U Hyaline Cast (Auto) 1-5 (0-5) /lpf U Epithel Cells (Auto) 5-10 H (0-5) /lpf Urine Bacteria (Auto) Negative (Negative) Administered Medications Discontinued Medications Sodium Chloride (Nss 1000ml) 1,000 mls @ 999 mls/hr IV .Q1H1M ONE Stop: 12/06/19 01:31 Last Infusion: 12/06/19 02:06 Dose: 0 mls/hr Documented by: [id number] Admin: 12/06/19 00:56 Dose: 999 mls/hr Documented by: [id number] Lorazepam (Ativan) 0.5 mg in 1 mls @ 1 mls/min IV NOW STA Stop: 12/06/19 00:32 Last Admin: 12/06/19 00:56 Dose: 1 mls/min Documented by: [id number] Sodium Chloride (Nss 1000ml) 1,000 mls @ 999 mls/hr IV .Q1H1M ONE Stop: 12/06/19 03:34 Last Infusion: 12/06/19 04:12 Dose: 0 mls/hr Documented by: [id number] Admin: 12/06/19 03:11 Dose: 999 mls/hr Documented by: [id number] Promethazine HCl (Phenergan) 12.5 mg in 50.5 mls @ 202 mls/hr IV NOW STA Stop: 12/06/19 03:28 Last Infusion: 12/06/19 04:11 Dose: 0 mls/hr Documented by: [id number] Admin: 12/06/19 03:26 Dose: 202 mls/hr Documented by: [id number] Metoclopramide HCl (Metoclopramide Hcl Inj 5 Mg/Ml 2 Ml Vial) 5 mg IV NOW STA Stop: 12/06/19 00:32 Last Admin: 12/06/19 00:46 Dose: 5 mg Documented by: [id number] Metoclopramide HCl (Metoclopramide Hcl Inj 5 Mg/Ml 2 Ml Vial) 5 mg IV ONE ONE Stop: 12/06/19 02:26 Last Admin: 12/06/19 02:31 Dose: 5 mg Documented by: [id number] Discharge Plan Visit Data Chief Complaint: Vomiting Stated Complaint: VOMITING ED Provider: Pat Banuelos Discharge Problem: Cyclical vomiting, intractable, Hypokalemia Forms Stand Alone Forms: [facility] Prescriptions Prescriptions: No Action prochlorperazine maleate 10 mg tablet 10 mg PO Q6 PRN (Reason: Nausea And Vomiting) RF: 0 ondansetron 4 mg tablet,disintegrating 4 mg PO UD PRN (Reason: Nausea And Vomiting) RF: 0 sumatriptan succinate 6 mg/0.5 mL pen injector 6 mg SUBCUT BID PRN (Reason: Migraine Headache) RF: 0 clonazepam 0.5 mg tablet,disintegrating 0.5 mg PO BID PRN (Reason: cyclic vomiting) RF: 0 norethindrone-e.estradiol-iron [Blisovi 24 Fe] 1 mg-20 mcg (24)/75 mg (4) tablet 1 tab PO DAILY RF: 0 diphenhydramine HCl 25 mg Capsule 50 mg PO Q6H PRN (Reason: nausea/vomiting) Qty: 0 RF: 0 cyproheptadine 4 mg Tablet 4 mg PO HS Qty: 30 RF: 0
[2019-12-06] MEDS ORDERED: METOCLOPRAMIDE HCL INJ 5 MG/ML 2 ML VIAL IV ONE (02:25)
[2019-12-06 02:31] LABS: Appearance Urine Clear (Clear); Bacteria Urine Automated Negative (Negative); Bilirubin Urine Negative (Negative); Blood Urine 2+ (Negative); Color Urine Yellow; Glucose Urine UA Negative (Negative); Ketones Urine 4+ (Negative); Leukocyte Esterase Urine Negative (Negative); Nitrite Urine Negative (Negative); Protein Urine Negative (Negative); Specific Gravity Urine 1.019 (1.000-1.030); Urobilinogen Urine Negative (Negative); pH Urine 6.5 (4.5-7.5)
[2019-12-06] MEDS ORDERED: PROMETHAZINE 12.5 MG/50.5 ML BAG IV STA (03:14)
[2019-12-06] MEDS ORDERED: SODIUM CHLORIDE 0.9% 500 ML IV SCH (05:45)
[2019-12-06 07:00] LABS: Amphetamines+Metham, Urine Neg (Neg); Barbiturates, Urine Neg (Neg); Benzodiazepine, Urine Neg (Neg); Cocaine, Urine Neg (Neg); MDMA (Ecstacy), Urine Neg (Neg); Methadone, Urine Neg (Neg); Opiate, Urine Neg (Neg); Phencyclidine, Urine Neg (Neg)
--- NOTE | 2019-12-06 07:33 | History & Physical Report ---
Date of Service December 06, 2019 Assessment & Plan (1) Cyclical vomiting, intractable: Whitney Adams is a 19 year old woman with a past medical history significant for cyclic vomiting syndrome who is here for vomiting too many times to count and having an equally large number of liquid stools. Cyclic vomiting Similar to previous presentation, vomiting and diarrhea Had about five days of relief prior to last night's mac and cheese event We will start patient on zofran 4 mg IV every 6 hours, and home PO benadryl, po companzine, po clonazepam po capsaicin and po cyproheptadine. sumatriptan BID as needed for migraine like symptoms Banana bag and LR at 125 Will start patient on clear liquid diet and advance as tolerated Hypokalemia Potassium of 3 patient appears dehydrated Will give 4 k riders and 20 meq PO KCl Daily BMP Abdominal Pain Not noted on previous exam, F/E/N: LR 125 mls/ hour DVT PPx: Encourage ambulation Dispo: Admit to [facility] supportive care Full Code (2) Hypokalemia: (3) Anxiety: (4) Dehydration: (5) Upper abdominal pain: History of Present Illness Chief Complaint: Cyclic Vomiting Primary Care Provider: NO PCP Whitney Adams is a 19 year old woman with a past medical history significant for cyclic vomiting syndrome. She has been having symptoms for the last three weeks. Has been admitted twice during those past three weeks. She was discharged on the 12th of this month and since that time she had some good days but now she is having severe symptoms again. She is having diarrhea and vomiting too numerous to count. Last night after eating mac and cheese she had an even higher number of episodes "She can't count how many episodes" As well as some epigastric pain. She started her period two days ago which is early for her and she is also having severe abdominal cramping pain as well. She suspects she may have lactose intolerance as her two most recent episodes of intense cyclic vomiting have come about after eating macaroni and cheese. Sensitive to light and sensitive to sound makes her symptoms worse. Kind of describes it as a migraine without the headache. Vomit is bilious non bloody and diarrhea is liquid nonblooody non melanotic. Does not smoke cigarettes use marijuana, she does use alcohol socially but hasn't had a drink in last three weeks. Has not had sex since returning to [place] to start school. 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 no allergies no abx recently Allergies Allergy/AdvReac Type Severity Reaction Status Date / Time No Known Allergies Allergy Verified 12/06/19 00:59 Home Medications Home Medications Medication Instructions Recorded Confirmed Type cyproheptadine 4 mg PO HS #30 tab 05/22/19 12/06/19 Rx clonazepam 0.5 mg PO BID PRN 11/12/19 12/06/19 History norethindrone-e.estradiol-iron 1 tab PO DAILY 11/12/19 12/06/19 History [Blisovi 24 Fe] ondansetron 4 mg PO UD PRN 11/12/19 12/06/19 History prochlorperazine maleate 10 mg PO Q6 PRN 11/12/19 12/06/19 History sumatriptan succinate 6 mg SUBCUT BID PRN 11/12/19 12/06/19 History diphenhydramine HCl 50 mg PO Q6H PRN #0 cap 11/14/19 12/06/19 Rx aprepitant [Emend] 40 mg PO DAILY PRN #5 cap MDD 40mg 12/07/19 Rx mirtazapine [Remeron] 15 mg PO HS 14 Days #14 tab 12/07/19 Rx Past Med/Surg History Medical History (Updated 12/06/19 @ 06:23 by Pat Baneulos DO) Cyclic vomiting syndrome History of trigger finger Family History (Updated 11/30/19 @ 02:07 by Cristina Noe DO) Other Diabetes Heart disease Social History (Updated 11/30/19 @ 02:07 by Marcial Pina MD) Smoking Status: Never smoker Second Hand Exposure: No; Do You Dip or Chew Tobacco: No; Tobacco Cessation Education Requested by Patient: No Hx Alcohol Use: Yes Alcohol type: wine Hx Substance Use: No Preferred Language: Malaysian Communication Ability: Effective Instructional Support Specialist Required: No Beliefs That Will Affect Care: None Current Living Situation: Other Current Living Situation Comment: one roommate in apartment Other Information That Helps Us Care for You: No Feels Safe at Home: Yes Safety Concerns: Feels Safe At This Time Review of Systems Review of Systems: All systems reviewed & are unremarkable except as noted in HPI & below Physical Exam Constitutional: well developed, well nourished and + acute distress; no altered mental status and no behavioral limitations Eyes: PERRL, conjunctivae normal, anicteric sclerae ENMT: external ear and nose normal, oropharynx normal Respiratory: normal respiratory effort, lungs clear to auscultation Cardiovascular: RRR, no murmur, no edema Gastrointestinal (Abdomen): Inspection/Auscultation: abdomen normal to inspection and normal bowel sounds Percussion/Palpation: + abdomen tender (Diffusely tender to palpation with voluntary guarding) and abdomen soft Skin: no rashes, warm and dry Neurologic: patellar DTR's 2+ bilat, sensation intact and PERRL, EOMI, accommodation nl, no face palsy, no dysarthria CN's II-XI intact bilaterally Psychiatric: Orientation: alert and oriented x 3 Affect: + anxious affect Results & Data Results & Data ([facility]) Vital Signs (Past 12 Hours) Vital Signs Temp Pulse Resp BP Pulse Ox 12/06/19 06:38 88 19 128/90 100 12/06/19 05:00 91 H 17 130/86 99 12/06/19 04:33 83 17 121/87 100 12/06/19 03:00 74 13 121/81 100 12/06/19 02:00 91 H 16 120/79 100 12/06/19 01:30 72 14 123/80 100 12/06/19 01:03 66 15 113/87 100 12/06/19 00:34 72 22 100 12/06/19 00:07 36.6 C 104 H 22 125/90 98 Supervising Physician Co-Signing Physician Notes see separate communication note same date. feeling terrible vomiting feels like flare of cyclic vomiting abdomen exam as per communication note cyclic vomiting syndrome flare - supportive care, as above and as per separate note Resident Activity Tracking Resident Involvement: Resident Care Provided Care Provided: Adult Hospital Medicine
[2019-12-06] MEDS ORDERED: PROCHLORPERAZINE MALEATE 10 MG TAB PO PRN (09:22)
[2019-12-06] MEDS ORDERED: POLYETHYLENE (MIRALAX) 17 GM PACK PO PRN (09:22)
[2019-12-06] MEDS ORDERED: ALUMINUM/MAGNESIUM SUSP 30 ML UDC PO PRN (09:22)
[2019-12-06] MEDS ORDERED: ONDANSETRON INJ 2 MG/ML 2 ML VIAL IV PRN (09:22)
[2019-12-06] MEDS ORDERED: ACETAMINOPHEN 325 MG TAB PO PRN (09:22)
[2019-12-06] MEDS ORDERED: clonazePAM 0.5 MG TAB PO PRN (09:26)
[2019-12-06] MEDS ORDERED: SUMAtriptan succinate 6 MG/0.5 ML VIAL SQ PRN (09:27)
[2019-12-06] MEDS ORDERED: MULTI-VITAMIN INFUSION 10 ML, THIAMINE HCL 100 MG, FOLIC ACID 1 MG in SODIUM CHLORIDE 0... IV ONE (09:45)
[2019-12-06] MEDS: POTASSIUM CHLORIDE / WTR 10 MEQ/100 ML PLCT IV SCH ×4 (10:00→13:04)
[2019-12-06] MEDS: POTASSIUM CHLORIDE 20 MEQ TABCR PO SCH (10:02)
[2019-12-06] MEDS ORDERED: FOSAPREPITANT DIMEGLUMINE 150 MG in SODIUM CHLORIDE 0.9% 145 ML IV ONE (10:15)
[2019-12-06] MEDS: LACTATED RINGER'S 1,000 ML IV SCH ×2 (10:58→18:58)
[2019-12-06] MEDS ORDERED: DiphenhydrAMINE HCL 50 MG/ML VIAL IV PRN (15:12)
[2019-12-06] MEDS ORDERED: PROCHLORPERAZINE 10 MG in SYRINGE 8 ML IV PRN (15:12)
--- NOTE | 2019-12-06 17:36 | Communication Note ---
Date of Service: December 06, 2019 seen multiple times today, both with and separately from dr andujar, who also saw pt multiple times today. vomiting profusely abdominal pain. later vomiting had stopped, abdominal pain (diffuse, nonfocal) persisted. finally sleeping comfortably - on last visit mother seemed reassurred that pt was feeling better too. vitals noted - initially sitting up vomiting appearing uncomfortable, later appearing mildly uncomfortable but no longer vomiting. lastly was sleeping comfortably breathing easily. nc at mmm. breathing unlabored no accessory musc les good effort skin no rashes no pallor or icterus. abd initially soft nd mild diffuse tenderness but no guarding no rebound, later soft nd nt (subjectively she had vague diffuse pain but objectively had no areas of tenderness at all). L sided mid Tspine paraspinals high tone/tender/decreased ROM - inhibitory pressure - improved labs noted intractable nausea/vomiting -reported hx of cyclic vomiting - certainly clinical presentation appears c/w same - will look back into how dx was made but at this point does not appear to warrant extensive inpt w/u, rather serial exams and aggressive symptom management -will likely require comprehensive approach as outpt - med management, anxiety management, possible benefit from OMT directed at sympathetics and parasympathetics, possibly trial of accupuncture -will start trial of remeron tonight given appetite effects and may help w anxiety -aggressive prns -replace K and follow -ambulation for DVT proph
[2019-12-06] MEDS ORDERED: CYPROHEPTADINE HCL 4 MG TAB PO SCH (21:00)
[2019-12-06] MEDS ORDERED: MIRTAZAPINE TAB 15 MG TAB PO SCH (21:00)
[2019-12-06] MEDS: FAMOTIDINE 20 MG in SYRINGE 3 ML IV SCH (21:15)
[2019-12-07] MEDS: LACTATED RINGER'S 1,000 ML IV SCH (03:43)
[2019-12-07 07:06] LABS: Hematocrit (blood only) 35.4 % (37-47); Hemoglobin 11.9 g/dL (12.0-16.0); Mean Corpuscular Hemoglobin 28.8 pg (25-34); Mean Corpuscular Hgb Conc 33.6 g/dL (32-36); Mean Corpuscular Volume 85.7 fL (80-100); Mean Platelet Volume 10.7 fL (7.4-10.4); Platelet Count 201 K/uL (130-400); RDW Coefficient of Variation 13.1 % (11.5-14.5); RDW Standard Deviation 40.8 fL (36.4-46.3); Red Blood Count 4.13 M/uL (4.2-5.4)
[2019-12-07 07:12] LABS: BUN Creatinine Ratio 11.5 (10-20); Basophils # (auto) 0.02 K/uL (0-0.2); Basophils % (auto) 0.3 %; Blood Urea Nitrogen 6 mg/dl (7-18); Calcium 8.3 mg/dl (8.5-10.1); Carbon Dioxide 23 mmol/L (21-32); Chloride 113 mmol/L (98-107); Creatinine Clr Calc Pharmacy 108.5 ml/min; Eosinophils % (auto) 1.4 %; Est GFR (African American) > 150.0; Est GFR (Non-African American) 134.9; Glucose 80 mg/dl (70-99); Immature Granulocytes # (auto) 0.01 K/uL (0.00-0.02); Immature Granulocytes % (auto) 0.1 %; Lymphocytes # (auto) 3.62 K/uL (1.2-3.4); Lymphocytes % (auto) 50.3 %; Monocytes # (auto) 0.78 K/uL (0.11-0.59); Monocytes % (auto) 10.8 %; Neutrophils # (auto) 2.67 K/uL (1.4-6.5); Neutrophils % (auto) 37.1 %; Potassium 3.5 mmol/L (3.5-5.1); Sodium 142 mmol/L (136-145)
[2019-12-07] MEDS: POTASSIUM CHLORIDE 20 MEQ TABCR PO SCH (09:24)
[2019-12-07] MEDS: FAMOTIDINE 20 MG in SYRINGE 3 ML IV SCH (09:24)
--- NOTE | 2019-12-07 09:46 | Discharge Summary ---
Date of Service December 07, 2019 Admission HPI Per Admitting Provider Whitney Adams is a 19 year old woman with a past medical history significant for cyclic vomiting syndrome. She has been having symptoms for the last three weeks. Has been admitted twice during those past three weeks. She was discharged on the 12th of this month and since that time she had some good days but now she is having severe symptoms again. She is having diarrhea and vomiting too numerous to count. Last night after eating mac and cheese she had an even higher number of episodes "She can't count how many episodes" As well as some epigastric pain. She started her period two days ago which is early for her and she is also having severe abdominal cramping pain as well. She suspects she may have lactose intolerance as her two most recent episodes of intense cyclic vomiting have come about after eating macaroni and cheese. Sensitive to light and sensitive to sound makes her symptoms worse. Kind of describes it as a migraine without the headache. Vomit is bilious non bloody and diarrhea is liquid nonblooody non melanotic. Does not smoke cigarettes use marijuana, she does use alcohol socially but hasn't had a drink in last three weeks. Has not had sex since returning to [facility] to start school. 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 no allergies no abx recently Admission Exam Per Admitting Provider Constitutional: well developed, well nourished and + acute distress; no altered mental status and no behavioral limitations Eyes: PERRL, conjunctivae normal, anicteric sclerae ENMT: external ear and nose normal, oropharynx normal Respiratory: normal respiratory effort, lungs clear to auscultation Cardiovascular: RRR, no murmur, no edema Gastrointestinal (Abdomen): Inspection/Auscultation: abdomen normal to in spection and normal bowel sounds Percussion/Palpation: + abdomen tender (Diffusely tender to palpation with voluntary guarding) and abdomen soft Skin: no rashes, warm and dry Neurologic: patellar DTR's 2+ bilat, sensation intact and PERRL, EOMI, accommodation nl, no face palsy, no dysarthria CN's II-XI intact bilaterally Psychiatric: Orientation: alert and oriented x 3 Affect: + anxious affect Principal Diagnosis cyclic vomiting syndrome Discharge Exam GENERAL: No acute distress. Well developed and well nourished. Vital signs reviewed as above. A/O x3. EYES: EOMI. Anicteric sclerae. HENT: Moist mucous membranes. RESPIRATORY: Clear to auscultation bilaterally. No wheezing, rales, or rhonchi. CARDIOVASCULAR: Regular rate and rhythm. No murmurs. ABDOMEN: Soft, non-tender and non-distended. No palpable masses. Normal bowel sounds. EXTREMITIES: No edema. Non-tender. NEUROLOGIC: No focal neurological deficits. PSYCHIATRIC: Cooperative. Appropriate mood and affect. Discharge Data Allergies Allergy/AdvReac Type Severity Reaction Status Date / Time No Known Allergies Allergy Verified 12/06/19 00:59 Consultations 12/06/19 05:39 ED Decision to Admit Stat Hospital Course (1) Cyclical vomiting, intractable: Whitney Adams is a 19 year old woman with a past medical history significant for cyclic vomiting syndrome who is here for vomiting too many times to count and having an equally large number of liquid stools. Cyclic vomiting Similar to previous presentation, vomiting and diarrhea Had about five days of relief prior to last night's mac and cheese event We will start patient on zofran 4 mg IV every 6 hours, and home PO benadryl, po companzine, po clonazepam po capsaicin and po cyproheptadine. sumatriptan BID as needed for migraine like symptoms Banana bag and LR at 125 Pt noted that Emend has resolved prior episodes of cyclic vomiting syndrome; a dose of Emend was given to patient during admission which relieved symptoms Hypokalemia Potassium of 3.0 upon admission Patient appears dehydrated Will give 4 k riders and 20 meq PO KCl Repeat BMP today revealed potassium 3.5 Abdominal Pain Not noted on previous exam Serial exams showed improvement of abdominal pain and decreased TTP F/E/N: LR 125 mls/ hour DVT PPx: Encourage ambulation Dispo: Plan for d/c home with mom Full Code (2) Hypokalemia: (3) Anxiety: (4) Dehydration: (5) Upper abdominal pain: Total Time Total Time Spent Total Time Spent (In Minutes): >30 Discharge Plan Discharge Items Patient Disposition: Home - Self-Care Reason For Visit: VOMITING Discharge Diagnosis: cyclic vomiting syndrome Condition on Discharge: Good Activity: Per Instructions section Non-emergency contact: Primary Care Provider Call non-emergency contact if: you have any medication questions, your symptoms worsen, your pain is not controlled, your pain is worsening, your pain is concerning for you and you have a fever Follow-up/Referrals: Beatris Andujar DO [Resident] - PCP,NO [Primary Care Provider] - Diet: Regular Addtl Attending Provider Instructions: Whitney Adams, It was our pleasure to care for you at [facility] from 12/06/19-12/07/19. Your hospital course is described below: Cyclic vomiting - We managed your symptoms with IV fluids and multiple PO and IV medications including Zofran, cyproheptadine, Imitrex, Compazine, and famotidine - You noted that previously, Emend was used which resolved previous episodes of vomiting - We did use Emend which again helped to stop the symptoms - We will send a prescription for Emend to your preferred pharmacy ([facility] in [place], [place]) Hypokalemia - Due to the vomiting, you were dehydrated on admission with associated low levels of potassium - We provided IV Fluids and supplemental potassium - On repeat blood work this morning, your potassium was in normal range Abdominal Pain - Serial exams showed improvement in the abdominal pain and decreased tenderness to palpation I encourage you to stay hydrated, drink plenty of fluids, and stay well rested. Please follow up with your primary care physician at home within 1 week of discharge from the hospital. When you return to [facility], please feel free to follow up with Dr. Andujar at [facility]. Pending Studies at Discharge: No Stand-Alone Forms: My [facility], Work/School Release (Inpt), Smoking Cessation Medications and DC Order Prescriptions: New aprepitant [Emend] 40 mg capsule 40 mg PO DAILY MDD 40mg PRN (Reason: severe nausea/vomiting ) Qty: 5 RF: 0 mirtazapine [Remeron] 15 mg tablet 15 mg PO HS 14 Days Qty: 14 RF: 0 Continued prochlorperazine maleate 10 mg tablet 10 mg PO Q6 PRN (Reason: Nausea And Vomiting) RF: 0 ondansetron 4 mg tablet,disintegrating 4 mg PO UD PRN (Reason: Nausea And Vomiting) RF: 0 sumatriptan succinate 6 mg/0.5 mL pen injector 6 mg SUBCUT BID PRN (Reason: Migraine Headache) RF: 0 clonazepam 0.5 mg tablet,disintegrating 0.5 mg PO BID PRN (Reason: cyclic vomiting) RF: 0 norethindrone-e.estradiol-iron [Blisovi 24 Fe] 1 mg-20 mcg (24)/75 mg (4) tablet 1 tab PO DAILY RF: 0 diphenhydramine HCl 25 mg Capsule 50 mg PO Q6H PRN (Reason: nausea/vomiting) Qty: 0 RF: 0 cyproheptadine 4 mg Tablet 4 mg PO HS Qty: 30 RF: 0 Discharge Orders: Discharge Order (Routine); Ordered 12/07/19 Ordered By: Beatris Andujar Admission Data Admit Date/Time: 12/06/19 07:14 Attending Provider: Shamar Bansal Admit Provider: Dashawn Gould Primary Care Provider: PCP,NO Other Providers: Efrain Uribe Other Interventions: Discharge Summary Assessment (RN) Last Done: 12/07/19 11:43 Supervising Physician Co-Signing Physician Notes I personally examined the patient and verified all jaimes points of history and exam, discussed case, and agree with decision making with Dr Andujar. feeling better eating better no real abdominal pain extensive discussions on multifactorial managmeent of fucntional disorders like this. they expressed good understanding vitals noted nad heent nc at mmm breathing unlabored no accessory muscles good effort abd soft nd nt cyclic vomiting syndrome - intractable nausea/vomiting -now tractable. stable for home -since emend seems to help abort episodes - Rx for total #5 to help hopefully prevent deteriorating to needing hospitalized. discussed role of evaluation -multimodal approach -pharmacologic - trial of remeron for now. cyproheptadine also could be increased; discussed possible need for occassional "holiday" to mitigate possible tachyphylaxis -somatovisceral - likely would benefit from OMT directed towards sympathetics (mid thoracic), parasympathetics (lateral neck and thoracic inlet) and possibly abdominal plexus (abdominal myofascial release) -possible benefit from accupuncture -extensive discussions on critical role of stress management fortunately PCP is actually a DO who does OMT and accupuncture - so f/u at home will help facilitate this. locally would rec she see dr andujar while on campus and gave names of accupuncture physicians in the area stable for home
--- NOTE | 2019-12-07 19:36 | Billing Data ---
Date of Service December 07, 2019 Coding Level of Care Code D/C Day Management >30 mins
--- NOTE | 2019-12-07 19:38 | Billing Data ---
Date of Service December 06, 2019 Coding Level of Care Code 79642 Subseq Obs Care Lvl 3
== END 2019-12-07 12:17 | disposition home or self-care (01) ==
LOC: ED 00:02 → 2N 00:02

== ENCOUNTER 2020-04-17 06:53 | Observation (INO) ==
[2020-04-17] MEDS ORDERED: FAMOTIDINE 20MG/5ML IV PUSH IV STA (07:04)
[2020-04-17] MEDS ORDERED: PROCHLORPERAZINE 2 ML IV ONE (07:04)
[2020-04-17] MEDS ORDERED: diphenhydrAMINE 50 MG/ML VIAL IV STA (07:04)
[2020-04-17] MEDS ORDERED: SODIUM CHLORIDE 0.9% 1000ML 1,000 ML IV ONE (07:04)
--- NOTE | 2020-04-17 07:16 | Emergency Department Note ---
History of Present Illness General Chief complaint: Vomiting Stated complaint: VOMITING,NAUSEA,DIARRHEA Time Seen by Provider: 04/17/20 07:03 Source: patient and family (mother via facetime) Mode of arrival: ambulatory Limitations: no limitations History of Present Illness Provider Complaint: + nausea, + vomiting and + diarrhea Onset (ago): hour(s) 10 Description of Vomiting: + watery and + bilious Description of Diarrhea: + watery Associated Abdominal Pain: Yes Location of pain: + diffuse Maximum Pain Intensity: 7 Current Pain Intensity: 7 Quality: + cramping Pain Consistency: + colicky Relieved By: + none Exacerbated By: + vomiting and + movement Context: + other (Hx Cyclic Vomiting Syndrome) Associated symptoms: + denies other symptoms Treatments prior to arrival: + other (Benadryl, Compazine, Zofran, capsaicin cream) HPI Narrative: This 19-year-old female patient with significant past medical history of cyclic vomiting syndrome presents to the emergency department today for evaluation of the same. The patient states she developed nausea and vomiting with diarrhea at approximately 1030 last night. She believes it may be due to drinking a frose (wine slushy) last evening. She states she does occasionally get triggers with alcohol use, but not every time. She reports generalized cramping and achiness in her abdomen diffusely. No specific tenderness to palpation. She denies any recent fever or chills. No hematemesis. No coughing or congestion. No upper respiratory infection symptoms. No hematochezia or melena. She has taken Benadryl, Compazine, Zofran, capsaicin cream without relief of her symptoms. She has responded nicely to IV Benadryl, Compazine, Pepcid, and fluids when she requires hospitalization. 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 Patient rates her generalized abdominal discomfort a 7/10 and describes it as cramping and achy. Home Medications Medication Instructions Recorded Confirmed Type cyproheptadine 4 mg PO HS #30 tab 05/22/19 04/17/20 Rx clonazepam 0.5 mg PO BID PRN 11/12/19 04/17/20 History norethindrone-e.estradiol-iron 1 tab PO DAILY 11/12/19 04/17/20 History [Blisovi 24 Fe] ondansetron 4 mg PO UD PRN 11/12/19 04/17/20 History prochlorperazine maleate 10 mg PO Q6 PRN 11/12/19 04/17/20 History sumatriptan succinate 6 mg SUBCUT BID PRN 11/12/19 04/17/20 History aprepitant [Emend] 40 mg PO DAILY PRN #5 cap MDD 40mg 12/07/19 04/17/20 Rx capsaicin 1 applic TOPICAL BID 01/29/20 04/17/20 History cyproheptadine 2 mg PO QAM 01/29/20 04/17/20 History diphenhydramine HCl 25 mg PO Q6H PRN 01/29/20 04/17/20 History Allergies Allergy/AdvReac Type Severity Reaction Status Date / Time No Known Allergies Allergy Verified 04/17/20 07:25 Past Med/Surg History Medical History Cyclic vomiting syndrome History of trigger finger Family History (Updated 11/30/19 @ 02:07 by Cristina Noe DO) Other Diabetes Heart disease Social History Smoking Status: Never smoker Second Hand Exposure: No; Hx Alcohol Use: Yes Alcohol type: wine and hard liquor Hx Substance Use: No Preferred Language: Icelandic Communication Ability: Effective Coagulation Operator Required: No Beliefs That Will Affect Care: None Current Living Situation: Other Current Living Situation Comment: one roommate in apartment Feels Safe at Home: Yes Safety Concerns: Feels Safe At This Time Assistive Devices: Glasses Review of Systems A total of 10 systems reviewed and were otherwise negative Physical Exam Vital Signs: Vital Signs - 24 hr 04/17/20 07:19 04/17/20 07:21 04/17/20 07:30 Pulse Rate 84 120 H 97 H Pulse Rate [Apical ] 101 H Pulse Rate from Sp O2 Sensor 85 111 H 97 H Respiratory Rate 15 20 17 Respiratory Effort / Characteristics Non-Labored Sponta neous Respiratory Depth Normal Respiratory Patter n Regular Blood Pressure 130/92 Blood Pressure [Ri ght Arm] 108/84 Blood Pressure Cheryle n 104 Blood Pressure Cheryle n [Right Arm] 92 Pulse Oximetry 100 100 100 Oxygen Delivery Me thod Room Air 04/17/20 07:31 04/17/20 08:00 04/17/20 08:01 Pulse Rate 103 H 94 H 110 H Pulse Rate [Apical ] Pulse Rate from Sp O2 Sensor 101 H 88 110 H Respiratory Rate 15 17 20 Respiratory Effort / Characteristics Respiratory Depth Respiratory Patter n Blood Pressure 108/84 120/90 Blood Pressure [Ri ght Arm] Blood Pressure Cheryle n 92 100 Blood Pressure Cheryle n [Right Arm] Pulse Oximetry 100 99 [facility] 08:30 04/17/20 08:31 04/17/20 09:00 Pulse Rate 81 75 85 Pulse Rate [Apical ] Pulse Rate from Sp O2 Sensor 80 76 85 Respiratory Rate 18 15 19 Respiratory Effort / Characteristics Respiratory Depth Respiratory Patter n Blood Pressure 131/78 121/78 Blood Pressure [Ri ght Arm] Blood Pressure Cheryle n 95 92 Blood Pressure Cheryle n [Right Arm] Pulse Oximetry 98 99 [facility] 09:01 04/17/20 09:30 04/17/20 09:31 Pulse Rate 83 85 94 H Pulse Rate [Apical ] Pulse Rate from Sp O2 Sensor 84 86 94 H Respiratory Rate 17 22 22 Respiratory Effort / Characteristics Respiratory Depth Respiratory Patter n Blood Pressure 118/74 Blood Pressure [Ri ght Arm] Blood Pressure Cheryle n 88 Blood Pressure Cheryle n [Right Arm] Pulse Oximetry 99 99 99 [facility] 10:00 04/17/20 10:01 04/17/20 10:30 Pulse Rate 84 86 95 H Pulse Rate [Apical ] Pulse Rate from Sp O2 Sensor 83 90 Respiratory Rate 17 20 18 Respiratory Effort / Characteristics Respiratory Depth Respiratory Patter n Blood Pressure 111/75 109/77 Blood Pressure [Ri ght Arm] Blood Pressure Cheryle n 87 87 Blood Pressure Cheryle n [Right Arm] Pulse Oximetry 97 98 98 [facility] 11:00 04/17/20 11:01 04/17/20 11:30 Pulse Rate 75 83 79 Pulse Rate [Apical ] Pulse Rate from Sp O2 Sensor 75 84 80 Respiratory Rate 16 16 19 Respiratory Effort / Characteristics Respiratory Depth Respiratory Patter n Blood Pressure 119/82 118/79 Blood Pressure [Ri ght Arm] Blood Pressure Cheryle n 94 92 Blood Pressure Cheryle n [Right Arm] Pulse Oximetry 99 100 96 Oxygen Delivery Me thod 04/17/20 11:31 04/17/20 12:00 04/17/20 12:01 Pulse Rate 76 95 H 95 H Pulse Rate [Apical ] Pulse Rate from Sp O2 Sensor 76 101 H 90 Respiratory Rate 19 17 15 Respiratory Effort / Characteristics Respiratory Depth Respiratory Patter n Blood Pressure 114/69 Blood Pressure [Ri ght Arm] Blood Pressure Cheryle n 84 Blood Pressure Cheryle n [Right Arm] Pulse Oximetry 96 98 97 Oxygen Delivery Me thod Physical Exam: VITALS: Vitals are noted on the nurse's note and reviewed by myself. Vital signs stable. GENERAL: This is a 19 year old white female, in no acute distress, nondiaphoretic, well-developed well-nourished. SKIN: The skin was without rashes, erythema, edema, or bruising. There is no tenting of the skin. Capillary refill less than 2 seconds. HEAD: Normocephalic atraumatic. EYES: Conjunctivae without injection, sclerae without icterus. NECK: Supple without nuchal rigidity. No lymphadenopathy. No thyromegaly. Cervical spine is nontender. No JVD. HEART: Regular rate and rhythm without murmurs gallops or rubs. LUNGS: Clear to auscultation bilaterally without wheezes, rales or rhonchi. No retractions or accessory muscle use. ABDOMEN: Positive bowel sounds x 4. Soft, nontender, without masses or organomegaly. Silva sign negative. No guarding or rebound tenderness. MUSCULOSKELETAL: No muscle atrophy, erythema, or edema noted. Full range of motion without joint tenderness in all extremities. No tenderness to palpation. Normal gait. NEURO: Patient was alert and oriented to person place and time. No focal neurological deficits. Course Course The patient was seen and evaluated as above. Previous medical records reviewed. An order was placed for continuous cardiac monitoring. The monitor shows a sinus tachycardia at a rate of 104 bpm. IV access obtained, labs drawn. Patient medicated with IV Benadryl, Compazine, Pepcid, and fluids. Labs reviewed by myself. I discussed the findings with the patient at bedside. She was reassessed and n otes she is feeling much better, but still has some lingering nausea. She was medicated with IV Zofran and 500mL NSS. Patient was reassessed and reports ongoing nausea. She was given another dose of IV Zofran. I did discuss with the patient options for admission versus discharge home. The patient would feel better about admission. I discussed the case with the manager inside. I discussed the [facility]. I spoke with Dr. Toth. The patient is requesting Aprepitant. I did speak with the pharmacist. I then did also speak with the hospitalist and we agreed on dosage. He did also request medicating the patient with subcutaneous Imitrex. This was provided. Please see hospitalist dictation regarding ongoing management care of this patient. Administered Medications Cyproheptadine HCl (Cyproheptadine Hcl 4 Mg Tab) 4 mg PO HS FAVIO Stop: 05/17/20 20:59 Last Admin: 04/17/20 20:08 Dose: 4 mg Documented by: [id number] Prochlorperazine (Prochlorperazine Maleate 10 Mg Tab) 10 mg PO Q6 PRN PRN Reason: Nausea And Vomiting Stop: 05/17/20 13:33 Last Admin: 04/17/20 23:08 Dose: 10 mg Documented by: [id number] Discontinued Medications Diphenhydramine HCl (Diphenhydramine 50 Mg/Ml Vial) 25 mg IV NOW STA Stop: 04/17/20 07:05 Last Admin: 04/17/20 07:21 Dose: 25 mg Documented by: [id number] Famotidine (Famotidine 20mg/5ml Iv Push) 20 mg IV ONE STA Stop: 04/17/20 07:05 Last Admin: 04/17/20 07:22 Dose: 20 mg Documented by: [id number] Sodium Chloride (Nss 1000ml) 1,000 mls @ 999 mls/hr IV .Q1H1M ONE Stop: 04/17/20 08:04 Last Infusion: 04/17/20 08:24 Dose: 0 mls/hr Documented by: [id number] Admin: 04/17/20 07:22 Dose: 999 mls/hr Documented by: [id number] Prochlorperazine (Compazine) 2 mls @ 1 mls/min IV ONE ONE Stop: 04/17/20 07:05 Last Admin: 04/17/20 07:22 Dose: 1 mls/min Documented by: [id number] Sodium Chloride (Nss 1000ml) 500 mls @ 999 mls/hr IV .Q31M ONE Stop: 04/17/20 09:11 Last Infusion: 04/17/20 09:30 Dose: 0 mls/hr Documented by: [id number] Admin: 04/17/20 08:55 Dose: 999 mls/hr Documented by: [id number] Fosaprepitant 150 mg/ Sodium (Chloride) 145 mls @ 300 mls/hr IV ONE ONE Stop: 04/17/20 11:14 Last Infusion: 04/17/20 11:38 Dose: 0 mls/hr Documented by: [id number] Admin: 04/17/20 11:09 Dose: 300 mls/hr Documented by: [id number] Dextrose/Lactated Ringer's (D5w And Lactated Ringers) 1,000 mls @ 75 mls/hr IV .[id number] ONE Stop: 04/18/20 00:37 Last Infusion: 04/18/20 02:28 Dose: 0 mls/hr Documented by: [id number] Admin: 04/17/20 12:00 Dose: 75 mls/hr Documented by: [id number] Magnesium Sulfate/Dextrose (Magnesium Sulfate / D5w) 1 gm in 100 mls @ 100 mls/hr IV NOW STA Stop: 04/17/20 13:01 Last Infusion: 04/17/20 14:39 Dose: 0 mls/hr Documented by: [id number] Admin: 04/17/20 12:37 Dose: 100 mls/hr Documented by: [id number] Ondansetron HCl (Ondansetron Inj 2 Mg/Ml 2 Ml Vial) 4 mg IV NOW STA Stop: 04/17/20 08:42 Last Admin: 04/17/20 08:53 Dose: 4 mg Documented by: [id number] Ondansetron HCl (Ondansetron Inj 2 Mg/Ml 2 Ml Vial) 4 mg IV NOW STA Stop: 04/17/20 09:39 Last Admin: 04/17/20 10:02 Dose: 4 mg Documented by: [id number] Potassium Chloride (Potassium Chloride Crtab 20 Meq Tabcr) 20 meq PO NOW STA Stop: 04/17/20 11:19 Last Admin: 04/17/20 11:48 Dose: Not Given Documented by: [id number] Sumatriptan Succinate (Sumatriptan Succinate 6 Mg/0.5 Ml Vial) 6 mg SQ NOW STA Stop: 04/17/20 10:42 Last Admin: 04/17/20 10:55 Dose: 6 mg Documented by: [id number] Medical Decision Making Differential Diagnosis + gastroenteritis, + food borne illness, + infections, + appendicitis, + diverticulitis, + inflammatory bowel disease, + GI bleed, + biliary pathology, + nausea, + vomiting, + diarrhea and + abdominal pain Medical Records Attestation: I reviewed the patient's medical records. Home Medications Current Medication List: was personally reviewed by me Laboratory Data Attestation: I reviewed the patient's lab results. No leukocytosis, anemia, thrombocytopenia. Renal, hepatic function, and electrolytes without significant abnormality. Lipase 89. Urinalysis positive for 3+ ketones, but no clear evidence of infection. Does appear to be contaminated specimen. COVID-19 testing negative Result diagrams: 04/17/20 07:19 04/17/20 07:19 Lab Results 04/17/20 04/17/20 04/17/20 Range/Units 07:19 07:19 07:19 WBC 7.56 (4.8-10.8) K/uL RBC 5.06 (4.2-5.4) M/uL Hgb 15.0 (12.0-16.0) g/dL Hct 42.5 (37-47) % MCV 84.0 (80-100) fL MCH 29.6 (25-34) pg MCHC 35.3 (32-36) g/dL RDW Std Deviation 38.0 (36.4-46.3) fL RDW Coeff of Kady 12.5 (11.5-14.5) % Plt Count 327 (130-400) K/uL MPV 10.8 H (7.4-10.4) fL Immature Gran % (Auto) 0.1 % Neut % (Auto) 70.9 % Lymph % (Auto) 24.1 % Hendricks % (Auto) 4.1 % Eos % (Auto) 0.1 % Baso % (Auto) 0.7 % Neut # (Auto) 5.36 (1.4-6.5) K/uL Lymph # (Auto) 1.82 (1.2-3.4) K/uL Hendricks # (Auto) 0.31 (0.11-0.59) K/uL Eos # (Auto) 0.01 (0-0.5) K/uL Baso # (Auto) 0.05 (0-0.2) K/uL Immature Gran # (Auto) 0.01 (0.00-0.02) K/uL Sodium 141 (136-145) mmol/L Potassium 3.6 (3.5-5.1) mmol/L Chloride 109 H (98-107) mmol/L Carbon Dioxide 22 (21-32) mmol/L Anion Gap 11.0 (3-11) BUN 9 (7-18) mg/dl Creatinine 0.94 (0.6-1.2) mg/dl Est Cr Clr Drug Dosing 64.6 ml/min Est GFR ( Amer) 100.5 Est GFR (Non-Af Amer) 86.7 BUN/Creatinine Ratio 9.7 L (10-20) Glucose 106 H (70-99) mg/dl Calcium 9.7 (8.5-10.1) mg/dl Magnesium 2.1 (1.8-2.4) mg/dl Total Bilirubin 0.4 (0.2-1) mg/dl AST 44 H (15-37) U/L ALT 28 (12-78) U/L Alkaline Phosphatase 51 (45-117) U/L Total Protein 8.0 (6.4-8.2) gm/dl Albumin 4.0 (3.4-5.0) gm/dl Globulin 4.0 (2.5-4.0) gm/dl Albumin/Globulin Ratio 1.0 (0.9-2) Lipase 89 (73-393) U/L Urine Color Urine Appearance (Clear) Urine pH (4.5-7.5) Ur Specific [place] (1.000-1.030) Urine Protein (Negative) Urine Glucose (UA) (Negative) Urine Ketones (Negative) Urine Blood (Negative) Urine Nitrite (Negative) Urine Bilirubin (Negative) Urine Urobilinogen (Negative) Ur Leukocyte Esterase (Negative) Urine WBC (Auto) (0-5) /hpf Urine RBC (Auto) (0-4) /hpf U Hyaline Cast (Auto) (0-5) /lpf U Epithel Cells (Auto) (0-5) /lpf Urine Bacteria (Auto) (Negative) Urine Mucus (None Prsent) POC Ur Test (NEG) COVID-19 Eval Order SARS-CoV-2 (PCR) (Negative) Influenza Type A (PCR) (Neg) Influenza Type B (PCR) (Neg) RSV (RT-PCR) (Neg) 04/17/20 04/17/20 04/17/20 Range/Units 09:00 09:00 11:00 WBC (4.8-10.8) K/uL RBC (4.2-5.4) M/uL Hgb (12.0-16.0) g/dL Hct (37-47) % MCV (80-100) fL MCH (25-34) pg MCHC (32-36) g/dL RDW Std Deviation (36.4-46.3) fL RDW Coeff of Kady (11.5-14.5) % Plt Count (130-400) K/uL MPV (7.4-10.4) fL Immature Gran % (Auto) % Neut % (Auto) % Lymph % (Auto) % Hendricks % (Auto) % Eos % (Auto) % Baso % (Auto) % Neut # (Auto) (1.4-6.5) K/uL Lymph # (Auto) (1.2-3.4) K/uL Hendricks # (Auto) (0.11-0.59) K/uL Eos # (Auto) (0-0.5) K/uL Baso # (Auto) (0-0.2) K/uL Immature Gran # (Auto) (0.00-0.02) K/uL Sodium (136-145) mmol/L Potassium (3.5-5.1) mmol/L Chloride (98-107) mmol/L Carbon Dioxide (21-32) mmol/L Anion Gap (3-11) BUN (7-18) mg/dl Creatinine (0.6-1.2) mg/dl Est Cr Clr Drug Dosing ml/min Est GFR ( Amer) Est GFR (Non-Af Amer) BUN/Creatinine Ratio (10-20) Glucose (70-99) mg/dl Calcium (8.5-10.1) mg/dl Magnesium (1.8-2.4) mg/dl Total Bilirubin (0.2-1) mg/dl AST (15-37) U/L ALT (12-78) U/L Alkaline Phosphatase (45-117) U/L Total Protein (6.4-8.2) gm/dl Albumin (3.4-5.0) gm/dl Globulin (2.5-4.0) gm/dl Albumin/Globulin Ratio (0.9-2) Lipase (73-393) U/L Urine Color Yellow Urine Appearance Clear (Clear) Urine pH 7.5 (4.5-7.5) Ur Specific [place] 1.023 (1.000-1.030) Urine Protein Negative (Negative) Urine Glucose (UA) Negative (Negative) Urine Ketones 3+ H (Negative) Urine Blood Negative (Negative) Urine Nitrite Negative (Negative) Urine Bilirubin Negative (Negative) Urine Urobilinogen Negative (Negative) Ur Leukocyte Esterase 1+ H (Negative) Urine WBC (Auto) 10-30 H (0-5) /hpf Urine RBC (Auto) 0-4 (0-4) /hpf U Hyaline Cast (Auto) 1-5 (0-5) /lpf U Epithel Cells (Auto) >30 H (0-5) /lpf Urine Bacteria (Auto) 1+ H (Negative) Urine Mucus Present A (None Prsent) POC Ur Test NEG (NEG) COVID-19 Eval Order CovFluRsv at [facility] SARS-CoV-2 (PCR) (Negative) Influenza Type A (PCR) (Neg) Influenza Type B (PCR) (Neg) RSV (RT-PCR) (Neg) 04/17/20 Range/Units 11:00 WBC (4.8-10.8) K/uL RBC (4.2-5.4) M/uL Hgb (12.0-16.0) g/dL Hct (37-47) % MCV (80-100) fL MCH (25-34) pg MCHC (32-36) g/dL RDW Std Deviation (36.4-46.3) fL RDW Coeff of Kady (11.5-14.5) % Plt Count (130-400) K/uL MPV (7.4-10.4) fL Immature Gran % (Auto) % Neut % (Auto) % Lymph % (Auto) % Hendricks % (Auto) % Eos % (Auto) % Baso % (Auto) % Neut # (Auto) (1.4-6.5) K/uL Lymph # (Auto) (1.2-3.4) K/uL Hendricks # (Auto) (0.11-0.59) K/uL Eos # (Auto) (0-0.5) K/uL Baso # (Auto) (0-0.2) K/uL Immature Gran # (Auto) (0.00-0.02) K/uL Sodium (136-145) mmol/L Potassium (3.5-5.1) mmol/L Chloride (98-107) mmol/L Carbon Dioxide (21-32) mmol/L Anion Gap (3-11) BUN (7-18) mg/dl Creatinine (0.6-1.2) mg/dl Est Cr Clr Drug Dosing ml/min Est GFR ( Amer) Est GFR (Non-Af Amer) BUN/Creatinine Ratio (10-20) Glucose (70-99) mg/dl Calcium (8.5-10.1) mg/dl Magnesium (1.8-2.4) mg/dl Total Bilirubin (0.2-1) mg/dl AST (15-37) U/L ALT (12-78) U/L Alkaline Phosphatase (45-117) U/L Total Protein (6.4-8.2) gm/dl Albumin (3.4-5.0) gm/dl Globulin (2.5-4.0) gm/dl Albumin/Globulin Ratio (0.9-2) Lipase (73-393) U/L Urine Color Urine Appearance (Clear) Urine pH (4.5-7.5) Ur Specific [place] (1.000-1.030) Urine Protein (Negative) Urine Glucose (UA) (Negative) Urine Ketones (Negative) Urine Blood (Negative) Urine Nitrite (Negative) Urine Bilirubin (Negative) Urine Urobilinogen (Negative) Ur Leukocyte Esterase (Negative) Urine WBC (Auto) (0-5) /hpf Urine RBC (Auto) (0-4) /hpf U Hyaline Cast (Auto) (0-5) /lpf U Epithel Cells (Auto) (0-5) /lpf Urine Bacteria (Auto) (Negative) Urine Mucus (None Prsent) POC Ur Test (NEG) COVID-19 Eval Order SARS-CoV-2 (PCR) NEGATIVE (Negative) Influenza Type A (PCR) Negative (Neg) Influenza Type B (PCR) Negative (Neg) RSV (RT-PCR) Negative (Neg) Blood Pressure Blood Pressure Findings: Normal blood pressure MDM Narrative This 19-year-old female patient presents to the emergency department today for evaluation of nausea and vomiting. She does have a history of cyclic vomiting and is followed by gastroenterology. Work-up here in the ED without leukocytosis or evidence of infection. The patient does appear dehydrated and has 3+ ketones noted in her urine. Patient required multiple rounds of antiemetics. She was hydrated with IV fluids. She will be admitted to the hospitalist service due to intractable nausea. Please see hospitalist dictation regarding ongoing management care of this patient. The chart was completed utilizing [employer] Speech voice recognition software. Grammatical errors, random word insertions, pronoun errors, and incomplete sentences are an occasional consequence of this system due to software limitations, ambient noise, and hardware issues. Any formal questions or concerns about the content, text, or information contained within the body of this dictation should be directly addressed to the provider for clarification. Impression & Plan Cyclic vomiting syndrome, Vomiting, Dehydration Discharge Plan Visit Data Chief Complaint: Vomiting Stated Complaint: VOMITING,NAUSEA,DIARRHEA ED Provider: Dmitriy Narayan ED Midlevel Provider: Rosa Parr Discharge Problem: Cyclic vomiting syndrome, Vomiting, Dehydration Patient Disposition: Admitted As Inpatient Discharge Instructions Interventions: ED Discharge Assessment Last Done: 04/17/20 13:06 Discharge Problem: Vomiting Qualifiers: Vomiting type: unspecified Vomiting Intractability: intractable Nausea presence: with nausea Qualified Code(s): R11.2 - Nausea with vomiting, unspecified
[2020-04-17 07:28] LABS: Basophils # (auto) 0.05 K/uL (0-0.2); Basophils % (auto) 0.7 %; Eosinophils # (auto) 0.01 K/uL (0-0.5); Eosinophils % (auto) 0.1 %; Hematocrit (blood only) 42.5 % (37-47); Immature Granulocytes # (auto) 0.01 K/uL (0.00-0.02); Immature Granulocytes % (auto) 0.1 %; Lymphocytes # (auto) 1.82 K/uL (1.2-3.4); Lymphocytes % (auto) 24.1 %; Mean Corpuscular Hemoglobin 29.6 pg (25-34); Mean Corpuscular Hgb Conc 35.3 g/dL (32-36); Mean Platelet Volume 10.8 fL (7.4-10.4); Monocytes # (auto) 0.31 K/uL (0.11-0.59); Monocytes % (auto) 4.1 %; Neutrophils # (auto) 5.36 K/uL (1.4-6.5); Neutrophils % (auto) 70.9 %; Platelet Count 327 K/uL (130-400); RDW Coefficient of Variation 12.5 % (11.5-14.5); Red Blood Count 5.06 M/uL (4.2-5.4); White Blood Count 7.56 K/uL (4.8-10.8)
[2020-04-17 07:43] LABS: BUN Creatinine Ratio 9.7 (10-20); Calcium 9.7 mg/dl (8.5-10.1); Creatinine Clr Calc Pharmacy 64.6 ml/min; Est GFR (African American) 100.5; Est GFR (Non-African American) 86.7; Potassium 3.6 mmol/L (3.5-5.1)
[2020-04-17 07:47] LABS: Bilirubin,Total 0.4 mg/dl (0.2-1)
[2020-04-17] MEDS ORDERED: SODIUM CHLORIDE 0.9% 1000ML 500 ML IV ONE (08:41)
[2020-04-17] MEDS ORDERED: ONDANSETRON INJ 2 MG/ML 2 ML VIAL IV STA ×2 (08:41→09:38)
[2020-04-17 09:16] LABS: Appearance Urine Clear (Clear); Bacteria Urine Automated 1+ (Negative); Bilirubin Urine Negative (Negative); Blood Urine Negative (Negative); Color Urine Yellow; Epithelial Cell Urine Auto >30 /lpf (0-5); Glucose Urine UA Negative (Negative); Ketones Urine 3+ (Negative); Leukocyte Esterase Urine 1+ (Negative); Nitrite Urine Negative (Negative); Protein Urine Negative (Negative); Specific Gravity Urine 1.023 (1.000-1.030); Urobilinogen Urine Negative (Negative); pH Urine 7.5 (4.5-7.5)
[2020-04-17 09:55] LABS: Mucus Urine Present (None Prsent); RBC Urine Automated 0-4 /hpf (0-4)
[2020-04-17] MEDS ORDERED: SUMAtriptan succinate 6 MG/0.5 ML VIAL SQ STA (10:41)
[2020-04-17] MEDS ORDERED: FOSAPREPITANT DIMEGLUMINE 150 MG in SODIUM CHLORIDE 0.9% 145 ML IV ONE (10:46)
--- NOTE | 2020-04-17 11:17 | Hospitalist Consultation ---
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 Significant history for cyclic vomiting syndrome, negative EGD's, and neurological workups in the past. She has been having symptoms for the last 24 hours, after having a frozen liquor drink at local [employer] last pm. The vomiting started "a couple hours" after having the drink and its onset was associated with her normal abdominal pain and diarrhea. The vomiting and diarrhea is associated with abdominal pain that is central in location feels like a burning and cramping pain. The pain does move to a more generalized non-specific abdominal pain at times. Vomiting is bilious with no blood, the diarrhea is brown and no blood. The patient did not have any food or water this morning however, she drank 12 oz glass of water last night before bed and kept that down. The patient states that her menstrual cycles are normal and that her last cycle was about 2 weeks ago. Denies any nicotine or drug use. Allergies Allergy/AdvReac Type Severity Reaction Status Date / Time No Known Allergies Allergy Verified 04/17/20 07:25 Home Medications Medication Instructions Recorded Confirmed Type cyproheptadine 4 mg PO HS #30 tab 05/22/19 04/17/20 Rx clonazepam 0.5 mg PO BID PRN 11/12/19 04/17/20 History norethindrone-e.estradiol-iron 1 tab PO DAILY 11/12/19 04/17/20 History [Blisovi 24 Fe] ondansetron 4 mg PO UD PRN 11/12/19 04/17/20 History prochlorperazine maleate 10 mg PO Q6 PRN 11/12/19 04/17/20 History sumatriptan succinate 6 mg SUBCUT BID PRN 11/12/19 04/17/20 History aprepitant [Emend] 40 mg PO DAILY PRN #5 cap MDD 40mg 12/07/19 04/17/20 Rx capsaicin 1 applic TOPICAL BID 01/29/20 04/17/20 History cyproheptadine 2 mg PO QAM 01/29/20 04/17/20 History diphenhydramine HCl 25 mg PO Q6H PRN 01/29/20 04/17/20 History Patient History Medical History Cyclic vomiting syndrome History of trigger finger Family History (Updated 11/30/19 @ 02:07 by Cristina Noe DO) Other Diabetes Heart disease Social History Smoking Status: Never smoker Second Hand Exposure: No; Hx Alcohol Use: Yes Alcohol type: wine Hx Substance Use: No Preferred Language: Canadian Communication Ability: Effective Billet Heater Required: No Beliefs That Will Affect Care: None Current Living Situation: Other Current Living Situation Comment: one roommate in apartment Feels Safe at Home: Yes Assistive Devices: Glasses Review of Systems Review of Systems: REVIEW OF SYSTEMS: Constitutional: No fever, sweats or chills Eyes: No diplopia, no worsening or blurred vision, nausea induced with rapid eye movments ENT: normal hearing, no trouble swallowing Respiratory: No cough, sputum, dyspnea at rest or on exertion Cardiovascular: No chest pain, tightness or palpitations Abdomen: No(+)pain, nausea, vomiting, diarrhea, no constipation Musculoskeletal: No joint pain, calf pain, swelling Neurologic: No weakness, numbness/tingling, or balance problems Psychiatric: No anxiety or depression Skin: No rash or itch Physical Exam Physical Exam: PHYSICAL EXAM: General: awake, alert, no apparent distress, fatigued looking Head: Normocephalic, atraumatic ENT: PERRLA, EOMI, no pharyngeal exudate, mucous membranes dry Neuro: AAO x 3, speech clear and appropriate, strength intact bilaterally 5/5, sensation intact and equal all extremities. Reflexex 2+, no ataxia, normal heal to tandem walk. Nausea associated with rapid following of finger. No nystagmus, no overshoot with finger to nose. No aphasia or difficulty reading or writing. Chest: equal rise and fall of the chest, no accessory muscle use, no heaves or thirlls, Clear to auscultation, on room air, Cardiac: Regular rate and rhythm, telemetry reviewed, skin warm dry, cap refill <3 seconds, peripheral pusles +2, no edema, no JVD GI: Tender light palpation globally, no rebound, guarding. Negative gutierrez, Hua, or reyes barreto. BS x 4 quadrants, soft, : Spontaneously voiding, no pain, no CVA tenderness, Extremities: Normal inspection, no peripheral edema or erythema, calfs nontender to palpation Psych: Normal mood and affect Skin: no rash or erythema Results & Data Results & Data ([facility]) Vital Signs (Past 12 Hours) Vital Signs Temp Pulse Pulse Resp BP BP Pulse Ox 04/17/20 10:30 95 H 18 109/77 98 04/17/20 10:01 86 20 98 04/17/20 10:00 84 17 111/75 97 04/17/20 09:31 94 H 22 99 04/17/20 09:30 85 22 118/74 99 04/17/20 09:01 83 17 99 04/17/20 09:00 85 19 121/78 99 04/17/20 08:31 75 15 99 04/17/20 08:30 81 18 131/78 98 04/17/20 08:01 110 H 20 96 04/17/20 08:00 94 H 17 120/90 99 04/17/20 07:31 103 H 15 108/84 100 04/17/20 07:30 97 H 17 100 04/17/20 07:21 120 H 20 100 04/17/20 07:19 84 101 H 15 130/92 108/84 100 04/17/20 06:58 36.2 C L 104 H 20 124/77 98 Laboratory Results Abnormal lab results 04/17/20 04/17/20 04/17/20 Range/Units 07:19 07:19 09:00 MPV 10.8 H (7.4-10.4) fL Chloride 109 H (98-107) mmol/L BUN/Creatinine Ratio 9.7 L (10-20) Glucose 106 H (70-99) mg/dl AST 44 H (15-37) U/L Urine Ketones 3+ H (Negative) Ur Leukocyte Esterase 1+ H (Negative) Urine WBC (Auto) 10-30 H (0-5) /hpf U Epithel Cells (Auto) >30 H (0-5) /lpf Urine Bacteria (Auto) 1+ H (Negative) Urine Mucus Present A (None Prsent) Diagnostic Findings XR chest 1V portable CLINICAL HISTORY: Pain radiating to the abdomen. COMPARISON STUDY: 11/13/2019 FINDINGS: The cardiac and mediastinal contours are normal. There is no evidence of focal pulmonary consolidation. There is no evidence of failure. No pleural effusions are visualized.[No free intraperitoneal air is visualized. IMPRESSION: No active disease in the chest. Medications Administered Discontinued Medications Diphenhydramine HCl (Diphenhydramine 50 Mg/Ml Vial) 25 mg IV NOW STA Stop: 04/17/20 07:05 Last Admin: 04/17/20 07:21 Dose: 25 mg Documented by: [id number] Famotidine (Famotidine 20mg/5ml Iv Push) 20 mg IV ONE STA Stop: 04/17/20 07:05 Last Admin: 04/17/20 07:22 Dose: 20 mg Documented by: [id number] Sodium Chloride (Nss 1000ml) 1,000 mls @ 999 mls/hr IV .Q1H1M ONE Stop: 04/17/20 08:04 Last Infusion: 04/17/20 08:24 Dose: 0 mls/hr Documented by: [id number] Admin: 04/17/20 07:22 Dose: 999 mls/hr Documented by: [id number] Prochlorperazine (Compazine) 2 mls @ 1 mls/min IV ONE ONE Stop: 04/17/20 07:05 Last Admin: 04/17/20 07:22 Dose: 1 mls/min Documented by: [id number] Sodium Chloride (Nss 1000ml) 500 mls @ 999 mls/hr IV .Q31M ONE Stop: 04/17/20 09:11 Last Infusion: 04/17/20 09:30 Dose: 0 mls/hr Documented by: [id number] Admin: 04/17/20 08:55 Dose: 999 mls/hr Documented by: [id number] Fosaprepitant 150 mg/ Sodium (Chloride) 145 mls @ 300 mls/hr IV ONE ONE Stop: 04/17/20 11:14 Last Admin: 04/17/20 11:09 Dose: 300 mls/hr Documented by: [id number] Ondansetron HCl (Ondansetron Inj 2 Mg/Ml 2 Ml Vial) 4 mg IV NOW STA Stop: 04/17/20 08:42 Last Admin: 04/17/20 08:53 Dose: 4 mg Documented by: [id number] Ondansetron HCl (Ondansetron Inj 2 Mg/Ml 2 Ml Vial) 4 mg IV NOW STA Stop: 04/17/20 09:39 Last Admin: 04/17/20 10:02 Dose: 4 mg Documented by: [id number] Sumatriptan Succinate (Sumatriptan Succinate 6 Mg/0.5 Ml Vial) 6 mg SQ NOW STA Stop: 04/17/20 10:42 Last Admin: 04/17/20 10:55 Dose: 6 mg Documented by: [id number] ECG Additional Comments: Obtaining now PG Care Time/CCT Total # of Minutes Spent Total Time Spent with Patient: Total time spent is greater than 50% in coordination of care (as documented) at patient's floor/unit and/or counseling patient: Coding Diagnoses Cyclical vomiting, intractable R11.15 Anxiety F41.9 Upper abdominal pain R10.10 DVT prophylaxis Z29.9
[2020-04-17] MEDS ORDERED: D5W AND LACTATED RINGERS 1,000 ML IV ONE (11:18)
[2020-04-17] MEDS ORDERED: POTASSIUM CHLORIDE CRTAB 20 MEQ TABCR PO STA (11:18)
--- NOTE | 2020-04-17 11:27 | History & Physical Report ---
Date of Service April 17, 2020 Assessment & Plan (1) Cyclical vomiting, intractable: Patient with cyclic vomiting syndrome: Worked up significantly it appears. The patient is familiar with her triggers and her treatment options. - Unsure of triggering event at this time, normally the patient states that stress sends her into a bout. - Patient without ataxia or seizures or nystagmus - Patient has received: Zofran, Famotidine, Phenergan, Benadryl. - At that time of my evaluation and the patient has stated that symptoms were improving. Her last vomiting was about 40 minutes ago and was small amount in the bag. - After evaluation the patient did receive a triptan and aprepitant antiemmtic. - Tier these medications for the floor - D5LR to possibly assist with abdominal discomfort and nausea. 1 Liter - advance diet slowly, bland: lactose low fat - ambulate - continue home medications as patient feels this has been working. Patient has ativan ordered at home, however has never used it. (2) Anxiety: Not an acute need - continue medications if needed (3) Upper abdominal pain: Currently appears to coincide with her cyclic vomiting syndrome. Normal WBC count and biliary tree labs lipase normal normal menstruation, negative HCG (4) DVT prophylaxis: SCDs ambulation (5) Asymptomatic bacteriuria: Patient asymptomatic- can repeat urine in morning if desired - N/V has stronger association to an established diagnosis versus UTI. - No treatment at this time. (6) Abnormal ECG: Minimal prolongation of QT 436 with QTc at 502. 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 Significant history for cyclic vomiting syndrome, negative EGD's, and neurological workups in the past. She has been having symptoms for the last 24 hours, after having a frozen liquor drink at local [employer] last pm. The vomiting started "a couple hours" after having the drink and its onset was associated with her normal abdominal pain and diarrhea. The vomiting and diarrhea is associated with abdominal pain that is central in location feels like a burning and cramping pain. The pain does move to a more generalized non-specific abdominal pain at times. Vomiting is bilious with no blood, the diarrhea is brown and no blood. The patient did not have any food or water this morning however, she drank 12 oz glass of water last night before bed and kept that down. The patient states that her menstrual cycles are normal and that her last cycle was about 2 weeks ago. Denies any nicotine or drug use. Allergies Allergy/AdvReac Type Severity Reaction Status Date / Time No Known Allergies Allergy Verified 04/17/20 07:25 Home Medications Medication Instructions Recorded Confirmed Type cyproheptadine 4 mg PO HS #30 tab 05/22/19 04/17/20 Rx clonazepam 0.5 mg PO BID PRN 11/12/19 04/17/20 History norethindrone-e.estradiol-iron 1 tab PO DAILY 11/12/19 04/17/20 History [Blisovi 24 Fe] ondansetron 4 mg PO UD PRN 11/12/19 04/17/20 History prochlorperazine maleate 10 mg PO Q6 PRN 11/12/19 04/17/20 History sumatriptan succinate 6 mg SUBCUT BID PRN 11/12/19 04/17/20 History aprepitant [Emend] 40 mg PO DAILY PRN #5 cap MDD 40mg 12/07/19 04/17/20 Rx capsaicin 1 applic TOPICAL BID 01/29/20 04/17/20 History cyproheptadine 2 mg PO QAM 01/29/20 04/17/20 History diphenhydramine HCl 25 mg PO Q6H PRN 01/29/20 04/17/20 History Past Med/Surg History Medical History Cyclic vomiting syndrome History of trigger finger Family History (Updated 11/30/19 @ 02:07 by Cristina Noe DO) Other Diabetes Heart disease Social History Smoking Status: Never smoker Second Hand Exposure: No; Hx Alcohol Use: Yes Alcohol type: wine and hard liquor Hx Substance Use: No Preferred Language: Lao Communication Ability: Effective Train Caller Required: No Beliefs That Will Affect Care: None Current Living Situation: Other Current Living Situation Comment: one roommate in apartment Feels Safe at Home: Yes Safety Concerns: Feels Safe At This Time Assistive Devices: Glasses Review of Systems Review of Systems: REVIEW OF SYSTEMS: Constitutional: No fever, sweats or chills Eyes: No diplopia, no worsening or blurred vision, nausea induced with rapid eye movments ENT: normal hearing, no trouble swallowing Respiratory: No cough, sputum, dyspnea at rest or on exertion Cardiovascular: No chest pain, tightness or palpitations Abdomen: No(+)pain, nausea, vomiting, diarrhea, no constipation Musculoskeletal: No joint pain, calf pain, swelling Neurologic: No weakness, numbness/tingling, or balance problems Psychiatric: No anxiety or depression Skin: No rash or itch Physical Exam Physical Exam: PHYSICAL EXAM: General: awake, alert, no apparent distress, fatigued looking Head: Normocephalic, atraumatic ENT: PERRLA, EOMI, no pharyngeal exudate, mucous membranes dry Neuro: AAO x 3, speech clear and appropriate, strength intact bilaterally 5/5, sensation intact and equal all extremities. Reflexex 2+, no ataxia, normal heal to tandem walk. Nausea associated with rapid following of finger. No nystagmus, no overshoot with finger to nose. No aphasia or difficulty reading or writing. Chest: equal rise and fall of the chest, no accessory muscle use, no heaves or thirlls, Clear to auscultation, on room air, Cardiac: Regular rate and rhythm, telemetry reviewed, skin warm dry, cap refill <3 seconds, peripheral pusles +2, no edema, no JVD GI: Tender light palpation globally, no rebound, guarding. Negative gutierrez, Hua, or reyes barreto. BS x 4 quadrants, soft, : Spontaneously voiding, no pain, no CVA tenderness, Extremities: Normal inspection, no peripheral edema or erythema, calfs nontender to palpation Psych: Normal mood and affect Skin: no rash or erythema Results & Data Results & Data ([facility]) Vital Signs (Past 12 Hours) Vital Signs Temp Pulse Pulse Resp BP BP Pulse Ox 04/17/20 11:01 83 16 100 04/17/20 11:00 75 16 119/82 99 04/17/20 10:30 95 H 18 109/77 98 04/17/20 10:01 86 20 98 04/17/20 10:00 84 17 111/75 97 04/17/20 09:31 94 H 22 99 04/17/20 09:30 85 22 118/74 99 04/17/20 09:01 83 17 99 04/17/20 09:00 85 19 121/78 99 04/17/20 08:31 75 15 99 04/17/20 08:30 81 18 131/78 98 04/17/20 08:01 110 H 20 96 04/17/20 08:00 94 H 17 120/90 99 04/17/20 07:31 103 H 15 108/84 100 04/17/20 07:30 97 H 17 100 04/17/20 07:21 120 H 20 100 04/17/20 07:19 84 101 H 15 130/92 108/84 100 04/17/20 06:58 36.2 C L 104 H 20 124/77 98 Laboratory Results Abnormal lab results 04/17/20 04/17/20 04/17/20 Range/Units 07:19 07:19 09:00 MPV 10.8 H (7.4-10.4) fL Chloride 109 H (98-107) mmol/L BUN/Creatinine Ratio 9.7 L (10-20) Glucose 106 H (70-99) mg/dl AST 44 H (15-37) U/L Urine Ketones 3+ H (Negative) Ur Leukocyte Esterase 1+ H (Negative) Urine WBC (Auto) 10-30 H (0-5) /hpf U Epithel Cells (Auto) >30 H (0-5) /lpf Urine Bacteria (Auto) 1+ H (Negative) Urine Mucus Present A (None Prsent) COVID PENDING Diagnostic Findings XR chest 1V portable CLINICAL HISTORY: Pain radiating to the abdomen. COMPARISON STUDY: 11/13/2019 FINDINGS: The cardiac and mediastinal contours are normal. There is no evidence of focal pulmonary consolidation. There is no evidence of failure. No pleural effusions are visualized.[No free intraperitoneal air is visualized. IMPRESSION: No active disease in the chest. ECG Additional Comments: Vent. rate 80 BPM GA interval 126 ms QRS duration 82 ms QT/QTc 436/502 ms Normal sinus rhythm with sinus arrhythmia Cannot rule out Anterior infarct , age undetermined Prolonged QT Code Status & VTE Plan Code Status SCDs Early ambulation Supervising Physician Co-Signing Physician Notes Attending Attestation & Admission Note: Pt seen/examined, chart reviewed, admission care plan d/w MENG Spaulding. I agree w/ the jaimes components of his documentation. 19yo female with cyclic vomiting syndrome - well known to me from an admission for same in fall 2019 - presents with intractable nausea/vomiting beginning late last evening. She [place] 1 alcoholic [place] In addition has had diarrhea and abdominal pain although by the time of my as sessment those are resolved. Symptoms are similar to when I cared for her in late October 2019 although she stated "it's not as bad this time." Prior to my arrival the ER provider administered Emend and SC imitrex without complication. Pt denies COVID-19 symptoms - no loss of taste/smell, no fevers/chills, no respiratory symptoms. COVID-19/RSV/flu testing negative. Pt confirms she had EGD in [place] in the last month. She thinks it was normal. Was told after this testing she had lactose intolerance. PMH, PSH, allergies, meds, sochx, famhx - reviewed VSS, mildly tachy, sats wnl gen - NAD mouth - MMM heart - tachy, s1 s2, no murmur lungs - CTA b/l abd - soft NT ND BS+; no HSM ext - no edema neuro - PERRL, no focal deficits labs reviewed u/a reviewed urine HCG neg A/P: Probable cyclic vomiting syndrome exacerbation. Cannot rule out acute gastritis or acute gastroenteritis. Patient feels symptoms are most c/w cyclic vomiting. COVID-19 negative. Abdominal exam benign. Labs reassuring. Agree with Emend x 1 and SC imitrex prn. IV hydration. GI prophylaxis with IV H2 abisai or PPI. Diet as tolerated. Cont chronic GI meds and anxiety meds. If any refractory symptoms or worsening then GI consultation. Corey Toth MD PG Care Time/CCT Total # of Minutes Spent Total Time Spent with Patient: Total time spent is greater than 50% in coordination of care (as documented) at patient's floor/unit and/or counseling patient: Coding Level of Care Code 63312 OBS Care - Level 2 Diagnoses Cyclical vomiting, intractable R11.15 Anxiety F41.9 Upper abdominal pain R10.10 DVT prophylaxis Z29.9 Asymptomatic bacteriuria R82.71 Abnormal ECG R94.31
[2020-04-17 12:02] LABS: Influenza A virus by PCR Negative (Neg); Influenza B virus by PCR Negative (Neg); RSV by PCR Negative (Neg); SARS CoV2 RNA(COVID-19) InHosp NEGATIVE (Negative)
[2020-04-17] MEDS ORDERED: MAGNESIUM SULFATE / D5W 1 GM/100 ML BAG IV STA (12:02)
--- NOTE | 2020-04-17 13:04 | Electrocardiogram Report ---
Test Reason : Blood Pressure : / mmHG Vent. Rate : 080 BPM Atrial Rate : 080 BPM P-R Int : 126 ms QRS Dur : 082 ms QT Int : 400 ms P-R-T Axes : 052 059 036 degrees QTc Int : 462 ms Normal sinus rhythm with sinus arrhythmia No previous ECGs available Confirmed by Jose Fisehr ([id number]) on 04/17/2020 1:04:33 PM Referred By: REFERRED SELF Confirmed By:Xavier Fisher
[2020-04-17] MEDS ORDERED: PROCHLORPERAZINE MALEATE 10 MG TAB PO PRN (13:34)
[2020-04-17] MEDS ORDERED: clonazePAM 0.5 MG TAB PO PRN (13:34)
[2020-04-17] MEDS ORDERED: diphenhydrAMINE Capsule 25 MG CAP PO PRN (13:34)
[2020-04-17] MEDS ORDERED: APREPITANT 40 MG CAP PO PRN (13:34)
[2020-04-17] MEDS ORDERED: CAPSAICIN CR 0.075% 60 GM TUBE EXT PRN (14:01)
[2020-04-17] MEDS ORDERED: ONDANSETRON 4 MG OD TAB PO PRN (14:05)
[2020-04-17] MEDS ORDERED: SUMAtriptan succinate 6 MG/0.5 ML VIAL SQ PRN (14:06)
[2020-04-17] MEDS ORDERED: CYPROHEPTADINE HCL 4 MG TAB PO SCH (21:00)
[2020-04-18 07:24] LABS: BUN Creatinine Ratio 10.8 (10-20); Calcium 8.3 mg/dl (8.5-10.1); Creatinine Clr Calc Pharmacy 80.9 ml/min; Est GFR (African American) 132.1; Est GFR (Non-African American) 113.9; Magnesium 2.3 mg/dl (1.8-2.4); Potassium 3.6 mmol/L (3.5-5.1)
[2020-04-18 07:50] LABS: Basophils # (auto) 0.05 K/uL (0-0.2); Basophils % (auto) 0.7 %; Eosinophils # (auto) 0.07 K/uL (0-0.5); Hematocrit (blood only) 35.6 % (37-47); Hemoglobin 12.1 g/dL (12.0-16.0); Immature Granulocytes # (auto) 0.01 K/uL (0.00-0.02); Immature Granulocytes % (auto) 0.1 %; Lymphocytes % (auto) 45.1 %; Mean Corpuscular Hemoglobin 29.5 pg (25-34); Mean Corpuscular Volume 86.8 fL (80-100); Mean Platelet Volume 10.8 fL (7.4-10.4); Monocytes # (auto) 0.78 K/uL (0.11-0.59); Neutrophils # (auto) 2.99 K/uL (1.4-6.5); Neutrophils % (auto) 42.1 %; Platelet Count 213 K/uL (130-400); RDW Coefficient of Variation 12.6 % (11.5-14.5); RDW Standard Deviation 40.6 fL (36.4-46.3)
[2020-04-18] MEDS ORDERED: ORAL CONTRACEPTIVE: ORDER AWAITING ACTION SCH (08:00)
[2020-04-18] MEDS ORDERED: CYPROHEPTADINE HCL 4 MG TAB PO SCH (09:00)
--- NOTE | 2020-04-18 11:03 | Discharge Summary ---
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 Significant history for cyclic vomiting syndrome, negative EGD's, and neurological workups in the past. She has been having symptoms for the last 24 hours, after having a frozen liquor drink at local [employer] last pm. The vomiting started "a couple hours" after having the drink and its onset was associated with her normal abdominal pain and diarrhea. The vomiting and diarrhea is associated with abdominal pain that is central in location feels like a burning and cramping pain. The pain does move to a more generalized non-specific abdominal pain at times. Vomiting is bilious with no blood, the diarrhea is brown and no blood. The patient did not have any food or water this morning however, she drank 12 oz glass of water last night before bed and kept that down. The patient states that her menstrual cycles are normal and that her last cycle was about 2 weeks ago. Denies any nicotine or drug use. Principal Diagnosis Cyclic Vomiting Discharge Exam Constitutional: WD/WN, vitals as above Respiratory: Effort normal, CTA B/L CV: RRR, no murmur, no edema Abdomen: normal bowel sounds, soft, nontender, no hepatosplenomegaly Discharge Data Allergies Allergy/AdvReac Type Severity Reaction Status Date / Time No Known Allergies Allergy Verified 04/17/20 07:25 Consultations 04/17/20 10:11 ED Decision to Admit Stat Hospital Course (1) Cyclical vomiting, intractable: Whitney Adams is a 19 year old woman with a past medical history significant for cyclic vomiting syndrome who is here for vomiting too many times to count and having an equally large number of liquid stools. Cyclic vomiting Similar to previous presentation, vomiting and diarrhea Had about five days of relief prior to last night's mac and cheese event We will start patient on zofran 4 mg IV every 6 hours, and home PO benadryl, po companzine, po clonazepam po capsaicin and po cyproheptadine. sumatriptan BID as needed for migraine like symptoms Bettye humphries and LR at 125 Pt noted that Emend has resolved prior episodes of cyclic vomiting syndrome; a dose of Emend was given to patient during admission which relieved symptoms Hypokalemia Potassium of 3.0 upon admission Patient appears dehydrated Will give 4 k riders and 20 meq PO KCl Repeat BMP today revealed potassium 3.5 Abdominal Pain Not noted on previous exam Serial exams showed improvement of abdominal pain and decreased TTP Pt progressed well through her admission and has no symptoms at this time. Tolerated a normal breakfast and will be discharged to home. (2) Hypokalemia: (3) Anxiety: recommend continuing Counselling through [facility] Total Time Total Time Spent Total Time Spent (In Minutes): 35 Total Time Includes: Examination of the Patient, Discharge Planning and Medication Reconciliation Discharge Plan Discharge Items Patient Disposition: Home - Self-Care Reason For Visit: PERSISTENT N/V Discharge Diagnosis: Cyclic Vomiting Condition on Discharge: Good Activity: Resume your previous activity Non-emergency contact: Primary Care Provider and Specialist Call non-emergency contact if: you have any medication questions and your symptoms worsen Follow-up/Referrals: [place] [Primary Care Provider] - Diet: Regular Addtl Attending Provider Instructions: You were admitted for a new episode of cyclic vomiting syndrome. Plan on returning to normal activities. Continue your outpatient medications. If you have return in your symptoms please call the [facility] for evaluation. Please follow up with your Primary Care and Specialist as needed. Pending Studies at Discharge: Yes Studies:: Urine Culture Stand-Alone Forms: My [facility] [employer], Smoking Cessation Medications and DC Order Prescriptions: Continued prochlorperazine maleate 10 mg tablet 10 mg PO Q6 PRN (Reason: Nausea And Vomiting) RF: 0 ondansetron 4 mg tablet,disintegrating 4 mg PO UD PRN (Reason: Nausea And Vomiting) RF: 0 sumatriptan succinate 6 mg/0.5 mL pen injector 6 mg SUBCUT BID PRN (Reason: Migraine Headache) RF: 0 clonazepam 0.5 mg tablet,disintegrating 0.5 mg PO BID PRN (Reason: cyclic vomiting) RF: 0 norethindrone-e.estradiol-iron [Blisovi 24 Fe] 1 mg-20 mcg (24)/75 mg (4) tablet 1 tab PO DAILY RF: 0 cyproheptadine 4 mg Tablet 2 mg PO QAM RF: 0 capsaicin 0.025 % Cream 1 applic TOPICAL BID RF: 0 diphenhydramine HCl 25 mg capsule 25 mg PO Q6H PRN (Reason: nausea/vomiting) RF: 0 cyproheptadine 4 mg Tablet 4 mg PO HS Qty: 30 RF: 0 aprepitant [Emend] 40 mg capsule 40 mg PO DAILY MDD 40mg PRN (Reason: severe nausea/vomiting ) Qty: 5 RF: 0 Discharge Orders: Discharge Order (Routine); Ordered 04/18/20 Ordered By: Louie Dooley Admission Data Admit Date/Time: 04/17/20 12:04 Attending Provider: Louie Dooley Admit Provider: Chris Spaulding Primary Care Provider: [facility] Other Providers: Corey Toth Other Interventions: Discharge Summary Assessment (RN) Last Done: 04/18/20 12:22 Coding Level of Care Code D/C Day Management >30 mins Diagnoses Cyclical vomiting, intractable R11.15 Hypokalemia E87.6 Anxiety F41.9
== END 2020-04-18 13:06 | disposition home or self-care (01) ==
LOC: 2W 06:53 → ED 06:53 → SUATTDRO 12:04 → 2W 13:06